=== PATIENT | female | born 1965 | race Caucasian/White ===

== ENCOUNTER → 2016-12-18 | Outpatient (CLI) | payer MEDICAID | LOC: OD 12:07 | PROVIDERS: ATTEND Family Medicine | DX: M54.2 Cervicalgia (principal) | CPT/HCPCS: 72050 ==

== ENCOUNTER 2017-06-03 08:54 | Day surgery (SDC) | payer MEDICAID ==
[2017-05-27 10:29] LABS: HEMATOCRIT 45.5 % (36.0-47.0); HEMOGLOBIN 15.2 g/dL (12.0-15.5); HGB HCT DIFFERENCE 0.1; MEAN CORPUSCULAR HEMOGLOBIN 30.3 pg (27.0-33.4); MEAN CORPUSCULAR HGB CONC 33.3 g/dL (32.0-36.0); MEAN CORPUSCULAR VOLUME 91 fl (80-97); RED CELL DISTRIBUTION WIDTH 13.6 % (11.5-14.0); WHITE BLOOD COUNT 5.5 10^3/uL (4.0-10.5)
[~2017-06-03 08:54] MED LIST: ACETAMINOPHEN 325 MG TABLET PO PRN; LACTATED RINGERS 1000 ML IV PRN; LIDOCAINE 0.5% INJ-PF (5 MG/ML) 50 ML SDV SUBCUT PRN
[2017-06-03] MEDS ORDERED: PROPOFOL INJ 200 MG/20 ML VIAL IV ONE (09:41)
[2017-06-03] MEDS ORDERED: PROMETHAZINE HCL INJ 25 MG/1 ML VIAL IV PRN (11:54)
[2017-06-03] MEDS ORDERED: DIPHENHYDRAMINE HCL 50 MG/ML VIAL IV PRN (11:54)
[2017-06-03] MEDS ORDERED: MORPHINE SULFATE 10 MG/ML INJ IV PRN (11:54)
[2017-06-03] MEDS ORDERED: MEPERIDINE HCL/PF INJ 25 MG/1 ML DISP.SYRIN IV PRN (11:54)
--- NOTE | 2017-06-03 12:29 | Operative Report ---
Operative Report DATE OF SURGERY: 06/03/17 PREOPERATIVE DIAGNOSIS: Abdominal pain; history of colon polyps; history of GERD POSTOPERATIVE DIAGNOSIS: Same with. 1. Mild distal esophagitis. 2. Mild gastritis. 3. External hemorrhoids. 4. Multiple small rectal polyps OPERATION: 1. Esophagogastroduodenoscopy. 2. Gastric and esophageal biopsies. 3. Total colonoscopy to cecum with photodocumentation. 4. Rectal polypectomy 3 SURGEON: RUDI RAPHAEL ANESTHESIA: LMAC TISSUE REMOVED OR ALTERED: Biopsies COMPLICATIONS: None none ESTIMATED BLOOD LOSS: Scant INTRAOPERATIVE FINDINGS: See below PROCEDURE: She was taken to the preop holding area the main operating room where LMAC anesthesia was induced. Monitoring devices were attached, she was placed in a semirecumbent position oral mouthpiece inserted Surgical plan surgical timeout were conducted. 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 The oral pharynx was cannulated with the flexible upper endoscope. The scope was advanced down through the hypopharynx uneventfully. There was some scar tissue peripherally but no evidence of mass, stenosis etc. Vocal cords actually appeared symmetric and without gross pathology. The EGD scope was advanced through the esophagus, stomach into the duodenum. Duodenum was normal up to the second portion. Scope was brought into the stomach which had no evidence of polyp, tumor bleeding etc. There was mild distal gastritis and a biopsy was chosen with a cold forceps device for RIGO testing Scope was retroflexed in the stomach, did look at the GE junction obtained. Minimal hiatal hernia. Scope was straightened out and brought to the GE junction which was at 36 cm from the incisor. Mild irregularity of the Z line. One biopsy of the Z line taken with the cold forceps device. There was no evidence of tumor stricture bleeding polyp or varix. Scope was withdrawn of the patient's oropharynx. She tolerated this portion procedure well Instrumentation set up for colonoscopy. Rectal exam was performed. There were some external hemorrhoids, small and collapsed. Rectal exam revealed no palpable pathology. The scope was advanced through the anorectal canal all the way to the cecum. This is an excellent study on a well-prepped bowel. Transillumination anterior abdominal wall confirmed cecal intubation. Scope was brought the length of the of the entire colon check in the mucosa carefully. There was no evidence of tumor stricture bleeding. There are no diverticulosis. In the rectum, approximately 10 cm from the verge or 3 small hyperplastic polyps which were removed with a cold forceps device, and sent to pathology as rectal polyps. Bleeding was minimal Scope was withdrawn to patient's anus. She tolerated procedure well. She was taken to recovery in stable condition Surveillance guidelines, patient will undergo colonoscopy in 3 years.
--- NOTE | 2017-06-03 12:31 | PDOC DISCHARGE SUMMARY ---
Discharge Summary (SDC) - Discharge Final Diagnosis: 1. Rectal polyps 2. External hemorrhoids Date of Surgery: 06/03/17 Discharge Date: 06/03/17 Condition: Good Treatment or Instructions: [place] [id number] POST ENDOSCOPY DISCHARGE INSTRUCTIONS 1. Diet: Start clear liquids that a regular diet as tolerated. 2. Resume all preoperative medications. All oral anticoagulants and aspirins can be resumed 24 hours after procedure. 3. If a polypectomy was performed some bleeding per rectum may occur. This should stop within 3 days. If not, please contact the office. 4. If you had a colonoscopy you may experience some bloating and delayed return of normal bowel function for several days, your regular bowel movement pattern should resume within a week. 5. Please contact [facility] at to make an appointment with Dr. Melgoza for 1 to 3 weeks following procedure. 6. If you have any questions or concerns regarding your care,treatment plan or follow up, please contact our office. 7. Per clinical guidelines we recommend you undergo a repeat colonoscopy in 3 years. Referrals: TAWNYA VARGAS MD [Primary Care Provider] - Discharge Diet: As Tolerated Discharge Activity: Activity As Tolerated Home Care Assistance: None Needed Report the Following to Your Physician Immediately: Shortness of Breath, Increase in Pain, Fever over 101 Degrees - Resume preop meds; follow-up Dr. Melgoza in approximately 2 weeks.
[2017-06-03 15:19] VITALS: BP 131/99
== END 2017-06-03 13:15 | disposition home or self-care (01) ==
LOC: OROUT 08:54
PROVIDERS: ATTEND Surgery
PROC: 0DB58ZX Excision of Esophagus, Via Natural or Artificial Opening Endoscopic, Diagnostic (ICD-10-PCS; 2017-06-03)
PROC: 0DBP8ZX Excision of Rectum, Via Natural or Artificial Opening Endoscopic, Diagnostic (ICD-10-PCS; principal; 2017-06-03 11:00)
PROC: 0DB68ZX Excision of Stomach, Via Natural or Artificial Opening Endoscopic, Diagnostic (ICD-10-PCS; 2017-06-03 11:00)
DX: K64.4 Residual hemorrhoidal skin tags (principal); K63.5 Polyp of colon; K31.9 Disease of stomach and duodenum, unspecified; K21.0 Gastro-esophageal reflux disease with esophagitis; Z93.1 Gastrostomy status; E09.9 Drug or chemical induced diabetes mellitus without complications; F17.210 Nicotine dependence, cigarettes, uncomplicated; F11.20 Opioid dependence, uncomplicated; Z85.850 Personal history of malignant neoplasm of thyroid; Z87.11 Personal history of peptic ulcer disease; Z79.899 Other long term (current) drug therapy; Z79.51 Long term (current) use of inhaled steroids
CPT/HCPCS: 43239; 45380; 36415; 85027; 88305 ×2; J2704; 810

== ENCOUNTER 2017-06-09 14:58 | Emergency (ER) | payer MEDICAID ==
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
[2017-06-09] MEDS ORDERED: OXYCODONE-ACETAMINOPHEN 5-325 MG TABLET PO ONE (16:10)
--- NOTE | 2017-06-09 16:35 | RADIOLOGY REPORT (SQ) ---
EXAM DESCRIPTION: RIBS RIGHT W/PA CHEST COMPLETED DATE/TIME: 06/09/2017 4:22 pm REASON FOR STUDY: Trauma with pain COMPARISON: 08/25/2016. TECHNIQUE: Frontal view of the chest and additional views of the right ribs acquired. NUMBER OF VIEWS: Three view. LIMITATIONS: None. FINDINGS: FRONTAL CXR: No pneumothorax. No pleural effusion. No atelectasis or infiltrates. RIBS: No displaced rib fractures. No lytic or blastic bony lesions. OTHER: No other significant finding. IMPRESSION: NO PNEUMOTHORAX. NO DISPLACED RIB FRACTURES. COMMENT: SITE OF TRAUMA/COMPLAINT MARKED/STAMP COMPLETED: YES. TECHNICAL DOCUMENTATION: JOB ID: [id number] [employer]- All Rights Reserved
--- NOTE | 2017-06-09 16:36 | RADIOLOGY REPORT (SQ) ---
EXAM DESCRIPTION: FOREARM RIGHT COMPLETED DATE/TIME: 06/09/2017 4:22 pm REASON FOR STUDY: Trauma with pain COMPARISON: None. NUMBER OF VIEWS: Two views. TECHNIQUE: Two radiographic images acquired of the right forearm, including elbow and wrist in at le ast one projection. LIMITATIONS: None. FINDINGS: MINERALIZATION: Normal. BONES: No acute fracture. Old healed fracture of the distal radius. Old ununited fracture of the ul cheryl styloid. No worrisome bone lesions. SOFT TISSUES: No obvious swelling or foreign body. OTHER: No other significant finding. IMPRESSION: OLD HEALED FRACTURE OF THE DISTAL RADIUS AND OLD UNUNITED FRACTURE OF THE ULNAR STYLOID. NO RADIOGRAPHIC EVIDENCE OF ACUTE INJURY. TECHNICAL DOCUMENTATION: JOB ID: [id number] [employer]- All Rights Reserved
[2017-06-09 17:47] VITALS: BP 125/83
== END 2017-06-09 16:55 | disposition home or self-care (01) ==
LOC: ER 14:58
DX: S60.211A Contusion of right wrist, initial encounter (principal); S20.221A Contusion of right back wall of thorax, initial encounter; W10.9XXA Fall (on) (from) unspecified stairs and steps, initial encounter; F17.200 Nicotine dependence, unspecified, uncomplicated; E11.9 Type 2 diabetes mellitus without complications; J44.9 Chronic obstructive pulmonary disease, unspecified
CPT/HCPCS: 99283; 73090; 71101; L3908

== ENCOUNTER 2017-10-27 17:55 | Emergency (ER) | payer MEDICAID ==
[2017-10-27 18:05] VITALS: BP 115/82
--- NOTE | 2017-10-27 18:30 | ER Document Report ---
ED Medical Screen (RME) - General Chief Complaint: Other Stated Complaint: HURTS TO BREATHE Time Seen by Provider: 10/27/17 18:29 Mode of Arrival: Wheelchair Information source: Patient TRAVEL OUTSIDE OF THE [place] IN LAST 30 DAYS: No - HPI Patient complains to provider of: dyspnea Onset: Yesterday - pt with h/o lung ca and pleuritis with c/o pleuritic CP and SOB - Related Data Allergies/Adverse Reactions: No Known Allergies Allergy (Verified 10/27/17 17:57) Past Medical History - Social History Chew tobacco use (# tins/day): No Frequency of alcohol use: None Drug Abuse: None - Past Medical History Cardiac Medical History: Denies: Hx Coronary Artery Disease, Hx Heart Attack, Hx Hypertension Pulmonary Medical History: Reports: Hx Asthma - MODERATE, Hx Bronchitis, Hx COPD , Hx Pneumonia Neurological Medical History: Denies: Hx Cerebrovascular Accident, Hx Seizures Endocrine Medical History: Reports: Hx Diabetes Mellitus Type 2 Renal/ Medical History: Denies: Hx Peritoneal Dialysis Malignancy Medical History: Reports: Hx Lymphoma GI Medical History: Reports: Hx Ulcer - STOMACH ,YEARS AGO. Denies: Hx Hepatitis, Hx Hiatal Hernia Musculoskeltal Medical History: Denies Hx Arthritis Infectious Medical History: Denies: Hx Hepatitis Past Surgical History: Reports: Hx Abdominal Surgery - Peg tube, Hx Tonsillectomy, Hx Vascular Surgery - Right neck lymph nodes. Denies: Hx Hysterectomy, Hx Mastectomy, Hx Open Heart Surgery, Hx Pacemaker - Immunizations Immunizations up to date: Yes Hx Diphtheria, Pertussis, Tetanus Vaccination: Yes Physical Exam - Vital signs Vitals: Temp Pulse Resp BP Pulse Ox 98.8 F 108 H 18 115/82 99 10/27/17 18:04 10/27/17 18:04 10/27/17 18:04 10/27/17 18:04 10/27/17 18:04 Course - Vital Signs Vital signs: Temp Pulse Resp BP Pulse Ox 98.8 F 108 H 18 115/82 99 10/27/17 18:04 10/27/17 18:04 10/27/17 18:04 10/27/17 18:04 10/27/17 18:04
--- NOTE | 2017-10-27 19:06 | RADIOLOGY REPORT (SQ) ---
EXAM DESCRIPTION: CHEST PA/LAT COMPLETED DATE/TIME: 10/27/2017 6:57 pm REASON FOR STUDY: sob COMPARISON: 09/01/2016 EXAM PARAMETERS: NUMBER OF VIEWS: two views TECHNIQUE: Digital Frontal and Lateral radiographic views of the chest acquired. RADIATION DOSE: NA LIMITATIONS: none FINDINGS: LUNGS AND PLEURA: Peripheral posterior opacity in the right lung lateral basal segment. M inimal perihilar opacity. Left lung is clear. MEDIASTINUM AND HILAR STRUCTURES: No masses or contour abnormalities. HEART AND VASCULAR STRUCTURES: Heart normal size. No evidence for failure. BONES: No acute findings. HARDWARE: None in the chest. OTHER: No other significant finding. IMPRESSION: Right lower lobe pneumonia. TECHNICAL DOCUMENTATION: JOB ID: [id number] [employer]- All Rights Reserved
[2017-10-27 19:39] LABS: HEMATOCRIT 43.6 % (36.0-47.0); HEMOGLOBIN 14.9 g/dL (12.0-15.5); MEAN CORPUSCULAR HEMOGLOBIN 30.5 pg (27.0-33.4); MEAN CORPUSCULAR HGB CONC 34.2 g/dL (32.0-36.0); MEAN CORPUSCULAR VOLUME 89 fl (80-97); PLATELET COUNT 252 10^3/uL (150-450); RED BLOOD COUNT 4.88 10^6/uL (3.72-5.28); RED CELL DISTRIBUTION WIDTH 13.5 % (11.5-14.0)
[2017-10-27 19:45] LABS: ALANINE AMINOTRANSFERASE 23 U/L (9-52); ALBUMIN 4.9 g/dL (3.5-5.0); ALKALINE PHOSPHATASE 102 U/L (38-126); ANION GAP 10 (5-19); ASPARTATE AMINO TRANSFERASE 20 U/L (14-36); BILIRUBIN,DIRECT 0.4 mg/dL (0.0-0.4); BILIRUBIN,TOTAL 1.5 mg/dL (0.2-1.3); BLOOD UREA NITROGEN 20 mg/dL (7-20); CALCIUM 9.9 mg/dL (8.4-10.2); CARBON DIOXIDE 27 mmol/L (22-30); CHLORIDE 102 mmol/L (98-107); CREATINE KINASE 71 U/L (30-135); GLUCOSE 104 mg/dL (75-110); POTASSIUM 4.5 mmol/L (3.6-5.0); SODIUM 139.4 mmol/L (137-145); TOTAL PROTEIN 7.4 g/dL (6.3-8.2)
[2017-10-27 19:57] LABS: CREATINE KINASE MB 0.47 ng/mL (<4.55)
[2017-10-27 20:01] LABS: ABSOLUTE LYMPHOCYTES# (MANUAL) 0.5 10^3/uL (0.5-4.7); ABSOLUTE MONOCYTES # (MANUAL) 0.4 10^3/uL (0.1-1.4); ABSOLUTE NEUTROPHILS# (MANUAL) 17.1 10^3/uL (1.7-8.2); BASOPHILS % (MANUAL) 0 % (0-2); EOSINOPHILS % (MANUAL) 0 % (0-6); LYMPHOCYTES % (MANUAL) 3 % (13-45); MONOCYTES % (MANUAL) 2 % (3-13); SEGMENTED NEUTROPHILS % (MAN) 82 % (42-78); TOTAL CELLS COUNTED 100
[2017-10-27 20:02] LABS: BAND NEUTROPHILS % (MANUAL) 13 % (3-5); PLATELET COMMENT ADEQUATE; PLATELET GIANT PRESENT; TOXIC VACUOLATION PRESENT
[2017-10-27 20:04] LABS: TROPONIN I < 0.012 ng/mL
--- NOTE | 2017-10-27 22:40 | EKG REPORT ---
SEVERITY:- OTHERWISE NORMAL ECG - SINUS TACHYCARDIA : Confirmed by: Uriel Canales 27-Oct-2017 22:39:07
[2017-10-28 12:44] LABS: PATH REVIEW PATHOLOGIST REVIEWED
== END 2017-10-27 20:41 | disposition left against medical advice (07) ==
LOC: ER 17:55
DX: R07.81 Pleurodynia (principal); R06.02 Shortness of breath; J44.9 Chronic obstructive pulmonary disease, unspecified; E11.9 Type 2 diabetes mellitus without complications; Z85.72 Personal history of non-Hodgkin lymphomas; Z85.118 Personal history of other malignant neoplasm of bronchus and lung; Z87.01 Personal history of pneumonia (recurrent); Z53.20 Procedure and treatment not carried out because of patient's decision for unspecified reasons
CPT/HCPCS: 36415; 71046; 80053; 82550; 82553; 84484; 85025; 85379; 93005; 93010; 99281

== ENCOUNTER 2017-10-29 03:39 | Emergency (ER) | payer MEDICAID ==
[2017-10-29 08:54] LABS: APPEARANCE,URINE CLOUDY; BILIRUBIN,URINE NEGATIVE (NEGATIVE); COLOR,URINE YELLOW; GLUCOSE, URINE NEGATIVE (NEGATIVE); KETONES,URINE NEGATIVE (NEGATIVE); LEUKOCYTE ESTERASE,URINE LARGE (NEGATIVE); NITRITE,URINE NEGATIVE (NEGATIVE); PROTEIN,URINE NEGATIVE (NEGATIVE); URINE SPECIFIC GRAVITY 1.027; UROBILINOGEN,URINE NEGATIVE mg/dL (<2.0)
[2017-10-29] MEDS ORDERED: AZITHROMYCIN INJ 500 MG VIAL IV ONE (10:16)
[2017-10-29] MEDS ORDERED: CEFTRIAXONE 1 GM/D5W RTU 1 GM/50 ML RTUPB IV ONE (10:16)
--- NOTE | 2017-10-29 11:27 | RADIOLOGY REPORT (SQ) ---
EXAM DESCRIPTION: CTA CHEST COMPLETED DATE/TIME: 10/29/2017 11:05 am REASON FOR STUDY: sob elevated dimer recent pna COMPARISON: CT angio chest 09/28/2014 CT chest 03/20/2011 Two-view chest 10/27/2017 TECHNIQUE: CT scan of the chest performed using helical scanning technique with dynamic intravenous contrast injection. Images reviewed with lung, soft tissue and bone windows. Reconstructed coronal and sagittal MPR images reviewed. Additional 3 dimensional post-processing performed to develop Maximal Intensity Projection images (DC P). All images stored on PACS. All CT scanners at this facility use dose modulation, iterative reconstruction, and/or weight based d osing when appropriate to reduce radiation dose to as low as reasonably achievable (ALARA). [facility]: Dose Right [facility]: CareDose [facility]: Dose Right [facility]: Teradose 4D [facility]: Eventap CONTRAST TYPE AND DOSE: contrast/concentration: Isovue 300.00 mg/ml; Total Contrast Delivered: 61.0 ml; Total Saline Delivered: 85.0 ml Contrast bolus optimized for the pulmonary arteries. Not diagnostic for the aorta. RENAL FUNCTION: Creatinine 0.8 RADIATION DOSE: CT Rad equipment meets quality standard of care and radiation dose reduction techniq ues were employed. CTDIvol: 13.2 - 14.3 mGy. DLP: 558 mGy-cm. . LIMITATIONS: None. FINDINGS: LUNGS AND PLEURA: Progression of airspace disease worrisome for pneumonia since 10/27/2017. There is an increase in extent of right lower lobe pneumonia, with dense consolidation posteriorly a nd laterally, and new spotty consolidation in the medial right lower lobe and superior segment right lower lobe. New foci of consolidation are also seen in the right upper lobe, and superior segment left lower lobe . No pleural effusion. No pneumothorax. AORTA AND GREAT VESSELS: No aneurysm. Contrast bolus not optimized for the aorta. HEART: No pericardial effusion. No significant coronary artery calcifications. PULMONARY ARTERIES: No emboli visualized in the main pulmonary arteries or the segmental branches. HILAR AND MEDIASTINAL STRUCTURES: No identified masses or abnormal nodes. HARDWARE: None in the chest. UPPER ABDOMEN: 1.8 cm cyst right lower pole kidney THYROID AND OTHER SOFT TISSUES: Right lobe thyroidectomy BONES: No acute or significant finding. 3D MIPS: Confirm above findings. OTHER: No other significant finding. IMPRESSION: NO PULMONARY EMBOLI. INCREASING RIGHT LOWER LOBE PNEUMONIA. NEW FOCI OF PNEUMONIA IN THE RIGHT UPPER LOBE AND LEFT LOWER LOBE COMMENT: Quality ID # [id number]: Final reports with documentation of one or more dose reduction techniques (e.g., Automated exposure control, adjustment of the mA and/or kV according to patient size, use of iterative reconstruction technique) TECHNICAL DOCUMENTATION: JOB ID: [id number] [employer]- All Rights Reserved
[2017-10-29] MEDS ORDERED: NORMAL SALINE 1000 ML 1,000 ML IV ONE (11:51)
[2017-10-29] MEDS ORDERED: CEFTRIAXONE SODIUM 1,000 MG in NORMAL SALINE 50 ML IV ONE (12:00)
[2017-10-29 12:32] LABS: ABSOLUTE LYMPHOCYTES (AUTO) 1.2 10^3/uL (0.5-4.7); ABSOLUTE MONOCYTES (AUTO) 0.6 10^3/uL (0.1-1.4); ABSOLUTE NEUT (AUTO) 15.5 10^3/uL (1.7-8.2); BASOPHILS % (AUTO) 0.3 % (0-2); EOSINOPHILS % (AUTO) 0.2 % (0-6); HEMATOCRIT 36.6 % (36.0-47.0); LYMPHOCYTES % (AUTO) 6.7 % (13-45); MEAN CORPUSCULAR HEMOGLOBIN 29.4 pg (27.0-33.4); MEAN CORPUSCULAR HGB CONC 32.9 g/dL (32.0-36.0); MEAN CORPUSCULAR VOLUME 89 fl (80-97); MONOCYTES % (AUTO) 3.5 % (3-13); PLATELET COUNT 229 10^3/uL (150-450); RED BLOOD COUNT 4.11 10^6/uL (3.72-5.28); RED CELL DISTRIBUTION WIDTH 13.9 % (11.5-14.0); SEGMENTED NEUTROPHILS % (AUTO) 89.3 % (42-78); TOTAL CELLS COUNTED % (AUTO) 100 %; WHITE BLOOD COUNT 17.3 10^3/uL (4.0-10.5)
[2017-10-29 12:33] LABS: HEMOGLOBIN 12.1 g/dL (12.0-15.5)
[2017-10-29 12:53] LABS: ALANINE AMINOTRANSFERASE 23 U/L (9-52); ALBUMIN 3.5 g/dL (3.5-5.0); ALKALINE PHOSPHATASE 110 U/L (38-126); ANION GAP 8 (5-19); ASPARTATE AMINO TRANSFERASE 18 U/L (14-36); BILIRUBIN,DIRECT 0.4 mg/dL (0.0-0.4); BILIRUBIN,TOTAL 0.4 mg/dL (0.2-1.3); BLOOD UREA NITROGEN 18 mg/dL (7-20); CALCIUM 9.5 mg/dL (8.4-10.2); CARBON DIOXIDE 24 mmol/L (22-30); CHLORIDE 108 mmol/L (98-107); GLUCOSE 71 mg/dL (75-110); LIPASE 18.3 U/L (23-300); POTASSIUM 3.6 mmol/L (3.6-5.0); SODIUM 140.3 mmol/L (137-145); TOTAL PROTEIN 5.9 g/dL (6.3-8.2)
--- NOTE | 2017-10-29 13:18 | ER Document Report ---
ED General - General Chief Complaint: Flank Pain Stated Complaint: FLANK PAIN Time Seen by Provider: 10/29/17 08:50 TRAVEL OUTSIDE OF THE [place] IN LAST 30 DAYS: No - HPI Patient complains to provider of: UTI pneumonia Notes: Patient coming in today for evaluation UTI pneumonia. Patient was seen in the ER approximately 48 hours ago had laboratory studies performed along with a d- dimer that was elevated chest x-ray showed pneumonia however left the ER prior to being seen by a physician. Patient states she left when the [facility] and was told shot of Rocephin and Zithromax however the left AGAINST MEDICAL ADVICE at that time. Patient with your PCP was urged to come to the ER for admission and reevaluation. Upon my evaluation patient resting comfortably and is very upset is that she has waited again here in the ER to be seen. Patient states chills cough shortness of breath patient states that this would like she has a urinary tract infection and was told by PCP at the urinary tract infection because her pneumonia. Patient states did not receive any antibiotics from the [facility]. Patient states he did receive fluids. Patient otherwise has no other complaints. - Related Data Allergies/Adverse Reactions: No Known Allergies Allergy (Verified 10/27/17 17:57) Past Medical History - Social History Smoking Status: Current Every Day Smoker Chew tobacco use (# tins/day): No Frequency of alcohol use: None Drug Abuse: None Family History: Reviewed & Not Pertinent Patient has suicidal ideation: No Patient has homicidal ideation: No - Past Medical History Cardiac Medical History: Denies: Hx Coronary Artery Disease, Hx Heart Attack, Hx Hypertension Pulmonary Medical History: Reports: Hx Asthma - MODERATE, Hx Bronchitis, Hx COPD , Hx Pneumonia Neurological Medical History: Denies: Hx Cerebrovascular Accident, Hx Seizures Endocrine Medical History: Reports: Hx Diabetes Mellitus Type 2 Renal/ Medical History: Denies: Hx Peritoneal Dialysis Malignancy Medical History: Reports: Hx Lymphoma GI Medical History: Reports: Hx Ulcer - STOMACH ,YEARS AGO. Denies: Hx Hepatitis, Hx Hiatal Hernia Musculoskeltal Medical History: Denies Hx Arthritis Infectious Medical History: Denies: Hx Hepatitis Past Surgical History: Reports: Hx Abdominal Surgery - Peg tube, Hx Tonsillectomy, Hx Vascular Surgery - Right neck lymph nodes. Denies: Hx Hysterectomy, Hx Mastectomy, Hx Open Heart Surgery, Hx Pacemaker - Immunizations Immunizations up to date: Yes Hx Diphtheria, Pertussis, Tetanus Vaccination: Yes Hx Pneumococcal Vaccination: 09/21/10 Review of Systems - Review of Systems Constitutional: No symptoms reported EENT: No symptoms reported Cardiovascular: No symptoms reported Respiratory: Cough Gastrointestinal: No symptoms reported Genitourinary: Other - UTI Female Genitourinary: No symptoms reported Musculoskeletal: No symptoms reported Skin: No symptoms reported Hematologic/Lymphatic: No symptoms reported Neurological/Psychological: No symptoms reported -: Yes All other systems reviewed and negative Physical Exam - Vital signs Vitals: Resp 18 10/29/17 09:38 Interpretation: Normal - General General appearance: Appears well, Alert - HEENT Head: Normocephalic, Atraumatic Eyes: Normal Pupils: PERRL - Respiratory Respiratory status: No respiratory distress Chest status: Nontender Breath sounds: Rhonchi Chest palpation: Normal - Cardiovascular Rhythm: Regular Heart sounds: Normal auscultation Murmur: No - Abdominal Inspection: Normal Distension: No distension Bowel sounds: Normal Tenderness: Nontender Organomegaly: No organomegaly - Back Back: Normal, Nontender - Extremities General upper extremity: Normal inspection, Nontender, Normal color, Normal ROM , Normal temperature General lower extremity: Normal inspection, Nontender, Normal color, Normal ROM , Normal temperature, Normal weight bearing. No: Gloria's sign - Neurological Neuro grossly intact: Yes Cognition: Normal Orientation: AAOx4 Markell Coma Scale Eye Opening: Spontaneous [place] Coma Scale Verbal: Oriented Markell Coma Scale Motor: Obeys Commands [place] Coma Scale Total: 15 Speech: Normal Motor strength normal: LUE, RUE, LLE, RLE Sensory: Normal - Psychological Associated symptoms: Normal affect, Normal mood - Skin Skin Temperature: Warm Skin Moisture: Dry Skin Color: Normal Course - Re-evaluation Re-evalutation: 10/29/17 15:34 Improving leukocytosis no bandemia. Patient laboratory studies show signs of UTI as well. Patient was ordered Rocephin and Zithromax. Upon reevaluation patient stating that she needs to leave the ER right now is that she has to go to court. Patient states that she will sign out AMA if she needs to. Otherwise vital signs are stable no signs of hypoxia patient is able to make her own medical decisions the patient will be a good candidate for outpatient treatment of her pneumonia and UTI with Levaquin. Patient did not receive her Rocephin left prior to receiving this however did give the patient a prescription for Levaquin. - Vital Signs Vital signs: Temp Pulse Resp BP Pulse Ox 18 10/29/17 09:38 - Laboratory Result Diagrams: 10/29/17 11:50 10/29/17 11:50 Laboratory results interpreted by me: 10/29/17 10/29/17 10/29/17 07:50 11:50 11:50 WBC 17.3 H Seg Neutrophils % 89.3 H Lymphocytes % 6.7 L Absolute Neutrophils 15.5 H Chloride 108 H Glucose 71 L Total Protein 5.9 L Lipase 18.3 L Urine Blood MODERATE H Ur Leukocyte Esterase LARGE H Discharge - Discharge Clinical Impression: UTI (urinary tract infection) Qualifiers: Urinary tract infection type: site unspecified Hematuria presence: without hematuria Qualified Code(s): N39.0 - Urinary tract infection, site not specified Pneumonia Qualifiers: Pneumonia type: due to unspecified organism Laterality: bilateral Lung location : unspecified part of lung Qualified Code(s): J18.9 - Pneumonia, unspecified organism Condition: Good Disposition: HOME, SELF-CARE Instructions: Pneumonia ([facility]), Urinary Tract Infection ([facility]) Additional Instructions: Please take medication as prescribed. Return to the ER for any complications. Prescriptions: Levofloxacin [Levaquin] 500 mg PO DAILY 9 Days tablet Forms: Smoking Cessation Education Referrals: TAWNYA VARGAS MD [Primary Care Provider] - Follow up as needed
== END 2017-10-29 13:33 | disposition home or self-care (01) ==
LOC: ER 03:39
DX: R10.9 Unspecified abdominal pain (principal); J18.9 Pneumonia, unspecified organism; N39.0 Urinary tract infection, site not specified; R68.83 Chills (without fever); R05 Cough; R06.02 Shortness of breath; E11.9 Type 2 diabetes mellitus without complications; F17.200 Nicotine dependence, unspecified, uncomplicated; J44.9 Chronic obstructive pulmonary disease, unspecified
CPT/HCPCS: 99284; 96365; 36415; 87040; 83690; 85025; 80053; 81001; 71275; J0456

== ENCOUNTER 2017-11-06 14:13 | Emergency (ER) | payer MEDICAID ==
--- NOTE | 2017-11-06 16:19 | RADIOLOGY REPORT (SQ) ---
EXAM DESCRIPTION: CHEST PA/LAT COMPLETED DATE/TIME: 11/06/2017 4:07 pm REASON FOR STUDY: hemoptysis COMPARISON: 10/27/2017 EXAM PARAMETERS: NUMBER OF VIEWS: two views TECHNIQUE: Digital Frontal and Lateral radiographic views of the chest acquired. RADIATION DOSE: NA LIMITATIONS: none FINDINGS: LUNGS AND PLEURA: There is persistent segmental airspace disease in the lateral right lowe r lobe. No evidence of cavitation. No significant pleural fluid. Left lung is clear. MEDIASTINUM AND HILAR STRUCTURES: No masses or contour abnormalities. HEART AND VASCULAR STRUCTURES: Heart normal size. No evidence for failure. BONES: No acute findings. HARDWARE: None in the chest. OTHER: No other significant finding. IMPRESSION: Persistent airspace disease in the right lower lobe consistent with pneumonia or other p ostobstructive process. No significant change. TECHNICAL DOCUMENTATION: JOB ID: [id number] [employer]- All Rights Reserved
--- NOTE | 2017-11-06 16:42 | ER Document Report ---
ED Respiratory Problem - General Chief Complaint: Productive Cough Stated Complaint: COUGHING UP BLOOD Time Seen by Provider: 11/06/17 15:43 Mode of Arrival: Ambulatory Information source: Patient Notes: Patient is a 52-year-old female with COPD who presents to the ER today for cough , right middle back pain times approximately 1 month. Patient was here a few weeks ago she says and diagnosed with pneumonia and a urinary tract infection, has finished Levaquin for 10 days and was also given another antibiotic that she does not remember by IV one time in the emergency department at another hospital. Patient states that she really has not gotten any better except the burning with urination is now gone. She admits to hot flashes and chills but denies any fever that she is known of. She states that 2 days ago she started coughing up a little streaks of blood which scared her enough to come in today. She denies being on any blood thinners. TRAVEL OUTSIDE OF THE [place] IN LAST 30 DAYS: No - Related Data Allergies/Adverse Reactions: No Known Allergies Allergy (Verified 11/06/17 14:14) Past Medical History - General Information source: Patient - Social History Smoking Status: Current Every Day Smoker Chew tobacco use (# tins/day): No Frequency of alcohol use: None Drug Abuse: None Family History: Reviewed & Not Pertinent Patient has suicidal ideation: No Patient has homicidal ideation: No - Past Medical History Cardiac Medical History: Denies: Hx Coronary Artery Disease, Hx Heart Attack, Hx Hypertension Pulmonary Medical History: Reports: Hx Asthma - MODERATE, Hx Bronchitis, Hx COPD , Hx Pneumonia Neurological Medical History: Denies: Hx Cerebrovascular Accident, Hx Seizures Endocrine Medical History: Reports: Hx Diabetes Mellitus Type 2 Renal/ Medical History: Denies: Hx Peritoneal Dialysis Malignancy Medical History: Reports: Hx Lymphoma GI Medical History: Reports: Hx Ulcer - STOMACH ,YEARS AGO. Denies: Hx Hepatitis, Hx Hiatal Hernia Musculoskeltal Medical History: Denies Hx Arthritis Infectious Medical History: Denies: Hx Hepatitis Past Surgical History: Reports: Hx Abdominal Surgery - Peg tube, Hx Tonsillectomy, Hx Vascular Surgery - Right neck lymph nodes. Denies: Hx Hysterectomy, Hx Mastectomy, Hx Open Heart Surgery, Hx Pacemaker - Immunizations Immunizations up to date: Yes Hx Diphtheria, Pertussis, Tetanus Vaccination: Yes Hx Pneumococcal Vaccination: 01/01/11 Review of Systems - Review of Systems Constitutional: See HPI EENT: No symptoms reported Cardiovascular: No symptoms reported Respiratory: See HPI Gastrointestinal: No symptoms reported Genitourinary: No symptoms reported Female Genitourinary: No symptoms reported Musculoskeletal: No symptoms reported Skin: No symptoms reported Hematologic/Lymphatic: No symptoms reported Neurological/Psychological: No symptoms reported Physical Exam - Vital signs Vitals: Temp Pulse Resp BP Pulse Ox 97.9 F 87 22 H 123/86 H 99 11/06/17 14:19 11/06/17 14:19 11/06/17 14:19 11/06/17 14:19 11/06/17 14:19 - Notes Notes: PHYSICAL EXAMINATION: GENERAL: Mildly ill-appearing, but in no acute distress. HEAD: Atraumatic, normocephalic. EYES: Pupils equal round and reactive to light, extraocular movements intact, sclera anicteric, conjunctiva are normal. ENT: ear canals without erythema or foreign body, TMs pearly engle with good bony landmarks, nares patent, oropharynx clear without exudates. Moist mucous membranes. Airway patent NECK: Normal range of motion, supple without lymphadenopathy LUNGS: Productive cough, otherwise CTAB and equal. No wheezes rales or rhonchi. HEART: Regular rate and rhythm without murmurs ABDOMEN: Soft, no tenderness. No guarding, no rebound BACK: no vertebral tenderness, normal ROM GI/: no CVA tenderness EXTREMITIES: Normal range of motion, no pitting edema. No cyanosis. NEUROLOGICAL: Cranial nerves grossly intact. Normal sensory/motor exams. PSYCH: Normal mood, normal affect. SKIN: Warm, Dry, normal turgor, no rashes or lesions noted Course - Re-evaluation Re-evalutation: 11/06/17 17:20 Chest x-ray today reports a persistent right lower lobe pneumonia. Patient refuses to stay in the hospital and also refuses any more blood draws or an IV. I will start her on Augmentin and provide her with a cough medication. I have advised that she follow-up with her primary care provider. She refuses to wait on urinalysis to return. - Vital Signs Vital signs: Temp Pulse Resp BP Pulse Ox 97.9 F 87 22 H 123/86 H 99 11/06/17 14:19 11/06/17 14:19 11/06/17 14:19 11/06/17 14:19 11/06/17 14:19 Discharge - Discharge Clinical Impression: Pneumonia Qualifiers: Pneumonia type: due to unspecified organism Laterality: right Lung location: lower lobe of lung Qualified Code(s): J18.1 - Lobar pneumonia, unspecified organism Condition: Stable Disposition: HOME, SELF-CARE Additional Instructions: Return immediately for any new or worsening symptoms. Follow up with primary care provider, call tomorrow to make followup appointment. Prescriptions: Hydrocodone Bit/Homatropine [Hycodan Syrup 5-1.5 mg/5 ml Ud Cup] 5 ml PO Q4HP PRN #120 ml PRN Reason: Amox Tr/Potassium Clavulanate [Augmentin 875-125 Tablet] 1 tab PO BID 10 Days tablet
[2017-11-06] MEDS ORDERED: HYDROCODONE/ACETAMINOPHEN 5-325 MG TABLET PO ONE (17:24)
[2017-11-06 17:41] VITALS: BP 149/93
[2017-11-06 18:19] LABS: APPEARANCE,URINE SLIGHTLY-CLOUDY; BILIRUBIN,URINE NEGATIVE (NEGATIVE); CALCIUM OXALATE CRYSTALS,URINE MODERATE /HPF; COLOR,URINE YELLOW; GLUCOSE, URINE NEGATIVE (NEGATIVE); KETONES,URINE NEGATIVE (NEGATIVE); LEUKOCYTE ESTERASE,URINE SMALL (NEGATIVE); NITRITE,URINE NEGATIVE (NEGATIVE); PROTEIN,URINE NEGATIVE (NEGATIVE); URINE SPECIFIC GRAVITY 1.025; UROBILINOGEN,URINE NEGATIVE mg/dL (<2.0)
== END 2017-11-06 17:50 | disposition home or self-care (01) ==
LOC: ER 14:13
DX: J18.1 Lobar pneumonia, unspecified organism (principal); R04.2 Hemoptysis; J44.9 Chronic obstructive pulmonary disease, unspecified; Z79.899 Other long term (current) drug therapy; F17.200 Nicotine dependence, unspecified, uncomplicated
CPT/HCPCS: 71046; 81001; 99284

== ENCOUNTER 2018-01-15 15:51 | Emergency (ER) | payer MEDICAID ==
--- NOTE | 2018-01-15 17:00 | ER Document Report ---
ED General - General Chief Complaint: Vaginal Discharge Stated Complaint: THROAT PAIN Time Seen by Provider: 01/15/18 16:27 Notes: Patient is a 52-year-old female who presents emergency room with multiple complaints. Her chief complaint today is vaginal discharge that she has had for 6 months. Patient states that she is followed with Dr. Vargas as well as multiple trips to the ER which she usually leaves AMA per review of the chart. Patient states she has not had a pelvic regarding this discharge. Patient states that she is sexually active and not using protection. She admits to pain with intercourse. She denies any bleeding. She admits to more vaginal pain then pyuria. Patient also admits that she is here for Adderall prescription. Patient states that she has been trying to get her Adderall E prescription filled from her primary provider but states that they have not been able to send it due to clerical issues. Patient states that she was told to come to the ER to have her prescription filled for the weekend. Patient also admits to left lateral neck pain. Patient states that she had had a previous anterior resection for stage IV cancer and states that this morning she had left-sided neck pain. Patient denies any difficulty with range of motion. TRAVEL OUTSIDE OF THE [place] IN LAST 30 DAYS: No - Related Data Allergies/Adverse Reactions: No Known Allergies Allergy (Verified 01/15/18 15:53) Past Medical History - Social History Smoking Status: Current Every Day Smoker Chew tobacco use (# tins/day): No Frequency of alcohol use: None Drug Abuse: None Family History: Reviewed & Not Pertinent Patient has suicidal ideation: No Patient has homicidal ideation: No - Past Medical History Cardiac Medical History: Denies: Hx Coronary Artery Disease, Hx Heart Attack, Hx Hypertension Pulmonary Medical History: Reports: Hx Asthma - MODERATE, Hx Bronchitis, Hx COPD , Hx Pneumonia Neurological Medical History: Denies: Hx Cerebrovascular Accident, Hx Seizures Endocrine Medical History: Reports: Hx Diabetes Mellitus Type 2 Renal/ Medical History: Denies: Hx Peritoneal Dialysis Malignancy Medical History: Reports: Hx Lymphoma GI Medical History: Reports: Hx Ulcer - STOMACH ,YEARS AGO. Denies: Hx Hepatitis, Hx Hiatal Hernia Musculoskeltal Medical History: Denies Hx Arthritis Infectious Medical History: Denies: Hx Hepatitis Past Surgical History: Reports: Hx Abdominal Surgery - Peg tube, Hx Hysterectomy , Hx Tonsillectomy, Hx Vascular Surgery - Right neck lymph nodes. Denies: Hx Mastectomy, Hx Open Heart Surgery, Hx Pacemaker - Immunizations Immunizations up to date: Yes Hx Diphtheria, Pertussis, Tetanus Vaccination: Yes Hx Pneumococcal Vaccination: 09/21/10 Review of Systems - Review of Systems Constitutional: No symptoms reported EENT: See HPI Cardiovascular: No symptoms reported Respiratory: No symptoms reported Gastrointestinal: No symptoms reported Genitourinary: No symptoms reported Female Genitourinary: See HPI Musculoskeletal: See HPI Neurological/Psychological: See HPI -: Yes All other systems reviewed and negative Physical Exam - Vital signs Vitals: Temp Pulse Resp BP Pulse Ox 98.0 F 73 18 124/80 97 01/15/18 15:56 01/15/18 15:56 01/15/18 15:56 01/15/18 15:56 01/15/18 15:56 - Notes Notes: PHYSICAL EXAM GENERAL: Alert, interacts well. HEAD: Normocephalic, atraumatic. EYES: Pupils equal, round, and reactive to light. Extraocular movements intact. ENT: Oral mucosa moist, tongue midline. NECK: Full range of motion. Supple. Trachea midline. Tenderness along the left sternocleidomastoid with pain reproducible palpation. No evidence of torticollis. LUNGS: Clear to auscultation bilaterally, no wheezes, rales, or rhonchi. No respiratory distress. HEART: Regular rate and rhythm. No murmurs, gallops, or rubs. ABDOMEN: Soft, nondistended, nontender. No guarding, rebound, or rigidity.. Bowel sounds present in all 4 quadrants. FEMALE : Normal external exam. No evidence of lesions, lacerations, bruising or vesicles. Speculum exam normal cervix closed. Moderate amount of yellow vaginal discharge. No evidence of lesions. No vaginal bleeding. Bimanual exam normal no cervical motion tenderness. No adnexal mass or adnexal tenderness. EXTREMITIES: Moves all 4 extremities spontaneously. No edema, radial and dorsalis pedis pulses 2/4 bilaterally. No cyanosis. NEUROLOGICAL: Alert and oriented x4. Normal speech. PSYCH: Normal affect, normal mood. SKIN: Warm, dry, normal turgor. No rashes or lesions noted. Course - Re-evaluation Re-evalutation: 01/15/18 18:07 Patient is a 52-year-old female is hemodynamically stable, no acute distress and afebrile. Regarding her vaginal discharge. She did test positive for trichomonas. Discussed with her that chlamydia and gonorrhea results will have to be phoned to her if she test positive. She agrees with that plan will except treatment for trichomonas at this time. Regarding her neck pain this is consistent with muscle strain of the SCM. Patient states that it feels better in certain positions. Also discussed with her I will give her a 3 day supply of her Adderall and is to follow-up with her primary prescriber for this. I did call over to their office and states that they have been having issues with her E prescribed that they are agreeable with a 3 day supply. Discussed with her that she will need to follow-up with them next week if they are still not able to e-prescribe her medication and that she will not be able to fill her Adderall from the emergency department anymore. Patient agrees with plan. - Vital Signs Vital signs: Temp Pulse Resp BP Pulse Ox 97.7 F 74 16 109/94 H 99 01/15/18 18:18 01/15/18 18:18 01/15/18 18:18 01/15/18 18:18 01/15/18 18:18 - Laboratory Laboratory results interpreted by me: 01/15/18 17:20 Urine Nitrite POSITIVE H Ur Leukocyte Esterase LARGE H Discharge - Discharge Clinical Impression: Trichomonas infection, Medication refill Condition: Good Disposition: HOME, SELF-CARE Instructions: Trichomonas Infection (OM) Additional Instructions: You have been given a 3 day course of your Adderall. If you run out again you will need to follow-up with your primary physician for this medication. You will not be able to receive more prescriptions from the emergency department regarding this medication. Prescriptions: Dextroamphetamine/Amphetamine [Adderall 20 mg Tablet] 20 mg PO BID #6 tablet Referrals: TAWNYA VARGAS MD [Primary Care Provider] - Follow up in 3-5 days
[2018-01-15 17:46] LABS: APPEARANCE,URINE SLIGHTLY-CLOUDY; BILIRUBIN,URINE NEGATIVE (NEGATIVE); COLOR,URINE YELLOW; GLUCOSE, URINE NEGATIVE (NEGATIVE); KETONES,URINE NEGATIVE (NEGATIVE); LEUKOCYTE ESTERASE,URINE LARGE (NEGATIVE); NITRITE,URINE POSITIVE (NEGATIVE); PROTEIN,URINE NEGATIVE (NEGATIVE); URINE SPECIFIC GRAVITY 1.026; UROBILINOGEN,URINE NEGATIVE mg/dL (<2.0)
[2018-01-15 17:52] LABS: RBCS (WET MOUNT) RARE RBCS SEEN; T.VAGINALIS (WET MOUNT) TRICHOMONAS SEEN; WBCS (WET MOUNT) 4+ WBCS SEEN; YEAST (WET MOUNT) NO YEAST SEEN
[2018-01-15] MEDS ORDERED: METRONIDAZOLE 500 MG TABLET PO ONE (18:06)
[2018-01-15 18:26] VITALS: BP 109/94
[2018-01-15 20:54] LABS: CHLAM PCR NOT DETECTED (NOT DETECT); GON PCR NOT DETECTED (NOT DETECT)
== END 2018-01-15 18:27 | disposition home or self-care (01) ==
LOC: ER 15:51
DX: A59.01 Trichomonal vulvovaginitis (principal); F17.200 Nicotine dependence, unspecified, uncomplicated; E11.9 Type 2 diabetes mellitus without complications; Z90.710 Acquired absence of both cervix and uterus
CPT/HCPCS: 99283; 87210; 81001; 87491; 87591; J3490

== ENCOUNTER 2018-04-20 03:18 | Emergency (ER) | payer MEDICAID ==
--- NOTE | 2018-04-20 04:11 | ER Document Report ---
ED Eye Complaint - General Chief Complaint: Eye Pain Stated Complaint: EYE PAIN Time Seen by Provider: 04/20/18 03:55 Notes: Patient is a 52-year-old female that comes emergency department for chief complaint of left eye pain. She states that the eyelid is swelling and she noticed that there is some blood under the white part of her eye as well. Symptoms started yesterday and did not resolve so she became concerned. She denies discharge, foreign body sensation, loss of vision, headache, or any other symptoms at this time. She does not wear contacts or glasses. She states she did put on makeup yesterday but that is the only out of the ordinary thing she can think of. She denies trauma. TRAVEL OUTSIDE OF THE [place] IN LAST 30 DAYS: No - Related Data Allergies/Adverse Reactions: No Known Allergies Allergy (Verified 01/15/18 15:53) Past Medical History - General Information source: Patient - Social History Smoking Status: Current Every Day Smoker Chew tobacco use (# tins/day): No Frequency of alcohol use: Occasional Drug Abuse: None Lives with: Alone Family History: Reviewed & Not Pertinent Patient has suicidal ideation: No Patient has homicidal ideation: No - Past Medical History Cardiac Medical History: Denies: Hx Coronary Artery Disease, Hx Heart Attack, Hx Hypertension Pulmonary Medical History: Reports: Hx Asthma - MODERATE, Hx Bronchitis, Hx COPD , Hx Pneumonia Neurological Medical History: Denies: Hx Cerebrovascular Accident, Hx Seizures Endocrine Medical History: Reports: Hx Diabetes Mellitus Type 2 Renal/ Medical History: Denies: Hx Peritoneal Dialysis Malignancy Medical History: Reports: Hx Lymphoma GI Medical History: Reports: Hx Ulcer - STOMACH ,YEARS AGO. Denies: Hx Hepatitis, Hx Hiatal Hernia Musculoskeletal Medical History: Denies Hx Arthritis Infectious Medical History: Denies: Hx Hepatitis Past Surgical History: Reports: Hx Abdominal Surgery - Peg tube, Hx Hysterectomy , Hx Tonsillectomy, Hx Vascular Surgery - Right neck lymph nodes. Denies: Hx Mastectomy, Hx Open Heart Surgery, Hx Pacemaker - Immunizations Immunizations up to date: Yes Hx Diphtheria, Pertussis, Tetanus Vaccination: Yes Hx Pneumococcal Vaccination: 09/21/10 Review of Systems - Review of Systems Constitutional: No symptoms reported EENT: See HPI Cardiovascular: No symptoms reported Respiratory: No symptoms reported Gastrointestinal: No symptoms reported Genitourinary: No symptoms reported Female Genitourinary: No symptoms reported Musculoskeletal: No symptoms reported Skin: No symptoms reported Hematologic/Lymphatic: No symptoms reported Neurological/Psychological: No symptoms reported Physical Exam - Vital signs Vitals: Temp Pulse Resp BP Pulse Ox 97.7 F 68 15 147/89 H 100 04/20/18 03:29 04/20/18 03:29 04/20/18 03:29 04/20/18 03:04/20/18 03:29 - General General appearance: Appears well In distress: None - HEENT Head: Normocephalic, Atraumatic Eyes: Periorbital edema - Very minimal. No: Scleral icterus, Tears Conjunctiva: Injected - Minimal, Other - Left lateral large subconjunctival hemorrhage Cornea: Normal - Negative Doni sign. No: Corneal abrasion, Corneal ulcer, Dendrite, Embedded foreign body, Flourescein stain uptake, Opacified, Superficial foreign body Eyelashes: Normal Pupils: PERRL Visual acuity- Right eye: 20/40 Visual acuity- Left eye: 20/70 Visual acuity- Both eyes: 20/30 Corrective lenses worn: No Left intraocular pressure: 18 Anterior chamber: Normal. No: Hyphema Nerve palsy: No Visual traore normal: Yes Ears: Normal External canal: Normal Tympanic membrane: Normal Sinus: Normal Nasal: Normal Mouth/Lips: Normal Mucous membranes: Normal Pharynx: Normal Neck: Normal - Respiratory Respiratory status: No respiratory distress Breath sounds: Normal. No: Decreased air movement, Wheezing - Cardiovascular Rhythm: Regular. No: Tachycardia Heart sounds: Normal auscultation, S1 appreciated, S2 appreciated - Abdominal Inspection: Normal Tenderness: Nontender. No: Tender, Guarding - Back Back: Normal, Nontender. No: Tender - Extremities General upper extremity: Normal inspection, Nontender, Normal strength, Normal temperature General lower extremity: Normal inspection, Nontender, Normal strength, Normal temperature. No: Edema - Neurological Neuro grossly intact: Yes Cognition: Normal Orientation: AAOx4 [place] Coma Scale Eye Opening: Spontaneous [place] Coma Scale Verbal: Oriented [place] Coma Scale Motor: Obeys Commands [place] Coma Scale Total: 15 Speech: Normal Motor strength normal: LUE, RUE, LLE, RLE Additional motor exam normals: Equal dye box operator Sensory: Normal - Psychological Associated symptoms: Normal affect, Normal mood - Skin Skin Temperature: Warm Skin Moisture: Dry Skin Color: Normal Course - Re-evaluation Re-evalutation: Normal intraocular pressure, no noted fluorescein uptake, negative Doni sign, normal pupil, minimal edema of the pupils and mild injection of the conjunctive are consistent with patient rubbing her eye. Unsure if this was traumatic. Dr. Bentley did evaluate the patient at bedside. Because of the large size of the subconjunctival hemorrhage and patient's general exam recommendation is erythromycin ointment and close ophthalmology follow-up. Discussed medication, follow-up, return precautions. Patient states understanding and agreement. - Vital Signs Vital signs: Temp Pulse Resp BP Pulse Ox 98.5 F 63 16 127/85 H 99 04/20/18 05:09 04/20/18 05:09 04/20/18 05:09 04/20/18 05:09 04/20/18 05:09 Discharge - Discharge Clinical Impression: Left eye pain Subconjunctival bleed Qualifiers: Laterality: left Qualified Code(s): H11.32 - Conjunctival hemorrhage, left eye Condition: Stable Disposition: HOME, SELF-CARE Additional Instructions: Your evaluation shows what is called a sub-conjunctival hemorrhage, this should resolve with time, however because of your symptoms and the size of the hemorrhage I recommend that you apply the topical ointment to soothe the area and reduce any chance of infection and that you have your eye closely rechecked by the safety belt installer. Please call Dr. Pathak this morning to set up your close follow-up. See referral number. Return if you worsen including loss of vision, severe pain, swelling of the eye, fever, or any other concerning symptoms. Prescriptions: Erythromycin Base [Erythromycin Oph 1 Gm Oint Ud] 1 applic OD ASDIR PRN #1 tube PRN Reason: Referrals: ALICE PATHAK MD [ACTIVE STAFF] - 04/20/18
[2018-04-20] MEDS ORDERED: TETRACAINE HCL 0.5% OPH SOLN 2 ML OS ONE (04:37)
[2018-04-20] MEDS ORDERED: TETRACAINE HCL 0.5% OPH SOLN 2 ML ONE (04:38)
[2018-04-20] MEDS ORDERED: ERYTHROMYCIN 0.5% OPH OINT 1 GM UNIT DOSE OS ONE (04:53)
[2018-04-20 05:10] VITALS: BP 127/85
== END 2018-04-20 05:10 | disposition home or self-care (01) ==
LOC: ER 03:18
DX: H11.32 Conjunctival hemorrhage, left eye (principal); H57.12 Ocular pain, left eye; E11.9 Type 2 diabetes mellitus without complications; F17.200 Nicotine dependence, unspecified, uncomplicated; Z90.710 Acquired absence of both cervix and uterus
CPT/HCPCS: 99283; J3490 ×2

== ENCOUNTER 2018-11-25 12:54 | Emergency (ER) | payer MEDICAID ==
[2018-11-25 13:00] VITALS: BP 110/72
[2018-11-25] MEDS ORDERED: RINGERS SOLUTION,LACTATED 1,000 ML IV ONE (13:40)
[2018-11-25] MEDS ORDERED: KETOROLAC TROMETHAMINE INJ/PF 30 MG/1 ML SDV IV ONE (13:40)
--- NOTE | 2018-11-25 13:42 | ER Document Report ---
ED Medical Screen (RME) - General Chief Complaint: Back Pain Stated Complaint: ABDOMINAL PAIN Time Seen by Provider: 11/25/18 13:35 Primary Care Provider: TAWNYA VARGAS MD [Primary Care Provider] - Follow up as needed Mode of Arrival: Ambulatory Information source: Patient Notes: This is a 53-year-old female with a history of urine infections who was treated in the last month for urinary infection who presents to the emergency room with persistent and worsening right flank pain. Patient does have a history of a hysterectomy in the past. 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 Erwin) but does not know exactly why it was placed at that time. Patient denies any fever. TRAVEL OUTSIDE OF THE [place] IN LAST 30 DAYS: No - Related Data Allergies/Adverse Reactions: No Known Allergies Allergy (Verified 11/25/18 12:57) Home Medications: xanax. prilosec. lamictal Past Medical History - Social History Chew tobacco use (# tins/day): No Frequency of alcohol use: None Drug Abuse: None - Past Medical History Cardiac Medical History: Denies: Hx Coronary Artery Disease, Hx Heart Attack, Hx Hypertension Pulmonary Medical History: Reports: Hx Asthma - MODERATE, Hx Bronchitis, Hx COPD, Hx Pneumonia Neurological Medical History: Denies: Hx Cerebrovascular Accident, Hx Seizures Endocrine Medical History: Reports: Hx Diabetes Mellitus Type 2 Renal/ Medical History: Denies: Hx Peritoneal Dialysis Malignancy Medical History: Reports: Hx Lymphoma GI Medical History: Reports: Hx Ulcer - STOMACH ,YEARS AGO. Denies: Hx Hepatitis, Hx Hiatal Hernia Musculoskeltal Medical History: Denies Hx Arthritis Infectious Medical History: Denies: Hx Hepatitis Past Surgical History: Reports: Hx Abdominal Surgery - Peg tube, Hx Hysterectomy, Hx Tonsillectomy, Hx Vascular Surgery - Right neck lymph nodes. Denies: Hx Mastectomy, Hx Open Heart Surgery, Hx Pacemaker - Immunizations Immunizations up to date: Yes Hx Diphtheria, Pertussis, Tetanus Vaccination: Yes Physical Exam - Vital signs Vitals: Temp Pulse Resp BP Pulse Ox 98.0 F 65 17 110/72 97 11/25/18 12:58 11/25/18 12:58 11/25/18 12:58 11/25/18 12:58 11/25/18 12:58 Course - Vital Signs Vital signs: Temp Pulse Resp BP Pulse Ox 98.0 F 65 17 110/72 97 11/25/18 12:58 11/25/18 12:58 11/25/18 12:58 11/25/18 12:58 11/25/18 12:58 Doctor's Discharge - Discharge Referrals: TAWNYA VARGAS MD [Primary Care Provider] - Follow up as needed
[2018-11-25 14:16] LABS: APPEARANCE,URINE SLIGHTLY-CLOUDY; BILIRUBIN,URINE NEGATIVE (NEGATIVE); COLOR,URINE YELLOW; GLUCOSE, URINE NEGATIVE (NEGATIVE); KETONES,URINE NEGATIVE (NEGATIVE); LEUKOCYTE ESTERASE,URINE LARGE (NEGATIVE); NITRITE,URINE NEGATIVE (NEGATIVE); PROTEIN,URINE NEGATIVE (NEGATIVE); URINE SPECIFIC GRAVITY 1.019; UROBILINOGEN,URINE NEGATIVE mg/dL (<2.0)
--- NOTE | 2018-11-25 15:09 | RADIOLOGY REPORT (SQ) ---
EXAM DESCRIPTION: CT ABD/PELVIS NO ORAL OR IV COMPLETED DATE/TIME: 11/25/2018 2:51 pm REASON FOR STUDY: right flank pain COMPARISON: None. TECHNIQUE: CT scan of the abdomen and pelvis performed without intravenous or oral contrast. Images reviewed with lung, soft tissue, and bone windows. Reconstructed coronal and sagittal MPR images revi ewed. All images stored on PACS. All CT scanners at this facility use dose modulation, iterative reconstruction, and/or weight based d osing when appropriate to reduce radiation dose to as low as reasonably achievable (ALARA). [facility]: Dose Right [facility]: CareDose [facility]: Dose Right [facility]: Teradose 4D [facility]: Oddcast RADIATION DOSE: CT Rad equipment meets quality standard of care and radiation dose reduction techniq ues were employed. CTDIvol: 4.8 mGy. DLP: 221 mGy-cm.mGy. LIMITATIONS: None. FINDINGS: LOWER CHEST: No significant findings. No nodules or infiltrates. NON-CONTRASTED LIVER, SPLEEN, ADRENALS: Evaluation limited by lack of IV contrast. No identified sign ificant masses. PANCREAS: No masses. No peripancreatic inflammatory changes. GALLBLADDER: No identified stones by CT criteria. No inflammatory changes to suggest cholecystitis. RIGHT KIDNEY AND URETER: No suspicious masses. Assessment limited by lack of IV contrast. Faint den sity pelvic right ureter image 56. No hydronephrosis or hydroureter. LEFT KIDNEY AND URETER: No suspicious masses. Assessment limited by lack of IV contrast. No signifi cant calcifications. No hydronephrosis or hydroureter. AORTA AND RETROPERITONEUM: No aneurysm. No retroperitoneal masses or adenopathy. BOWEL AND PERITONEAL CAVITY: No obvious masses or inflammatory changes. No free fluid. APPENDIX: Normal. PELVIS, BLADDER, AND ABDOMINAL WALL:No abnormal masses. No free fluid. Bladder normal. BONES: Nothing acute. OTHER: No other significant finding. IMPRESSION: Suspected tiny nonobstructing stone distal right ureter. Correlate with urinalysis. COMMENT: Quality ID # [id number]: Final reports with documentation of one or more dose reduction techniques (e.g., Automated exposure control, adjustment of the mA and/or kV according to patient size, use of iterative reconstruction technique) TECHNICAL DOCUMENTATION: JOB ID: [id number] [employer]- All Rights Reserved Reading location - IP/workstation name: [email or web address]
[2018-11-25] MEDS ORDERED: LEVOFLOXACIN 750 MG TABLET PO ONE (15:10)
--- NOTE | 2018-11-25 17:46 | ER Document Report ---
ED General - General Chief Complaint: Back Pain Stated Complaint: ABDOMINAL PAIN Time Seen by Provider: 11/25/18 13:35 Primary Care Provider: TAWNYA VARGAS MD [ACTIVE STAFF] - Follow up as needed Mode of Arrival: Ambulatory TRAVEL OUTSIDE OF THE [place] IN LAST 30 DAYS: No - HPI Notes: Presents to the emergency department for evaluation. She states she has had some urinary frequency and some right flank pain. She was actually seen by her primary care doctor on the . She states she also had vaginal discharge at that time. She did not have a pelvic exam. She had a prescription for Bactrim for 5 days written. She states she is felt somewhat better than continued to feel worse. She denies any fevers or chills. No nausea or vomiting. She states the vaginal discharge continues. She states she is in a monogamous relationship. She states she has not had any vaginal discharge since her hysterectomy. - Related Data Allergies/Adverse Reactions: No Known Allergies Allergy (Verified 11/25/18 12:57) Home Medications: xanax. prilosec. lamictal Past Medical History - General Information source: Patient - Social History Smoking Status: Current Every Day Smoker Chew tobacco use (# tins/day): No Frequency of alcohol use: None Drug Abuse: None Family History: Reviewed & Not Pertinent Patient has suicidal ideation: No Patient has homicidal ideation: No - Past Medical History Cardiac Medical History: Denies: Hx Coronary Artery Disease, Hx Heart Attack, Hx Hypertension Pulmonary Medical History: Reports: Hx Asthma - MODERATE, Hx Bronchitis, Hx COPD, Hx Pneumonia Neurological Medical History: Denies: Hx Cerebrovascular Accident, Hx Seizures Endocrine Medical History: Reports: Hx Diabetes Mellitus Type 2 Renal/ Medical History: Denies: Hx Peritoneal Dialysis Malignancy Medical History: Reports: Hx Lymphoma GI Medical History: Reports: Hx Ulcer - STOMACH ,YEARS AGO. Denies: Hx Hepatitis, Hx Hiatal Hernia Musculoskeletal Medical History: Denies Hx Arthritis Infectious Medical History: Denies: Hx Hepatitis Past Surgical History: Reports: Hx Abdominal Surgery - Peg tube, Hx Hysterectomy, Hx Tonsillectomy, Hx Vascular Surgery - Right neck lymph nodes. Denies: Hx Mastectomy, Hx Open Heart Surgery, Hx Pacemaker - Immunizations Immunizations up to date: Yes Hx Diphtheria, Pertussis, Tetanus Vaccination: Yes Hx Pneumococcal Vaccination: 09/21/10 Review of Systems - Review of Systems Constitutional: No symptoms reported EENT: No symptoms reported Cardiovascular: No symptoms reported Respiratory: No symptoms reported Gastrointestinal: No symptoms reported Genitourinary: See HPI Musculoskeletal: See HPI Skin: No symptoms reported Neurological/Psychological: No symptoms reported Physical Exam - Vital signs Vitals: Temp Pulse Resp BP Pulse Ox 98.0 F 65 17 110/72 97 11/25/18 12:58 11/25/18 12:58 11/25/18 12:58 11/25/18 12:58 11/25/18 12:58 - Notes Notes: Vital signs reviewed, please refer to chart. Patient is normocephalic, atraumatic. Pupils equal round, reactive to light. Neck is supple without meningismus. Heart is regular rate and rhythm. Lungs are clear to auscultation bilaterally. Abdomen is soft, nontender, normoactive bowel sounds throughout. Extremities without cyanosis, clubbing, edema. Peripheral pulses are equal. Skin is warm and dry. Patient is awake, alert, neurological exam is nonfocal. Course - Re-evaluation Re-evalutation: 11/25/18 17:42 Patient presented to the emergency department for evaluation. She had urinalysis is ordered by triage. This did reveal leukocyte Estrace but was nitrite negative. I am not convinced based on this that she actually has a urinary tract infection. I did tell the patient that she needed a pelvic exam. She was amenable to this. Pelvic set up was ordered. Before I was able to return to the room, I was notified by nursing that the patient was frustrated and wanted to leave AGAINST MEDICAL ADVICE. She would not wait until I can talk to her. She voiced understanding to potential complications and still was very angry. She had refused any medications as ordered by triage. She refused to wait for pelvic or for explanation for me. The patient left AGAINST MEDICAL ADVICE. Please see nursing documentation. 11/25/18 17:43 - Vital Signs Vital signs: Temp Pulse Resp BP Pulse Ox 98.0 F 65 17 110/72 97 11/25/18 12:58 11/25/18 12:58 11/25/18 12:58 11/25/18 12:58 11/25/18 12:58 - Laboratory Laboratory results interpreted by me: 11/25/18 13:41 Ur Leukocyte Esterase LARGE H Discharge - Discharge Clinical Impression: Left against medical advice Disposition: AGAINST MEDICAL ADVICE Referrals: TAWNYA VARGAS MD [ACTIVE STAFF] - Follow up as needed
== END 2018-11-25 16:44 | disposition left against medical advice (07) ==
LOC: ER 12:54
DX: M54.9 Dorsalgia, unspecified (principal); R10.9 Unspecified abdominal pain; R35.0 Frequency of micturition; F17.200 Nicotine dependence, unspecified, uncomplicated; E11.9 Type 2 diabetes mellitus without complications; Z90.710 Acquired absence of both cervix and uterus
CPT/HCPCS: 99281; 87086; 81001; 74176; J3490

== ENCOUNTER → 2019-03-03 | Outpatient (CLI) | payer MEDICAID ==
--- NOTE | 2019-03-04 08:20 | RADIOLOGY REPORT (SQ) ---
EXAM DESCRIPTION: C SP 4 OR 5 VIEWS COMPLETED DATE/TIME: 03/03/2019 5:28 pm REASON FOR STUDY: CERVICALGIA M54.2 CERVICALGIA COMPARISON: 02/18/2013 NUMBER OF VIEWS: Five views. TECHNIQUE: AP, lateral, obliques and odontoid radiographic images acquired of the cervical spine. LIMITATIONS: None. FINDINGS: MINERALIZATION: Normal. ALIGNMENT: Normal anatomic alignment. The lateral film the patient is flexed. Similar but less prom inent findings were noted on prior study. VERTEBRAE: Vertebral bodies of normal height. DISCS: No significant osteophytes or sclerosis. Disc height maintained. FORAMINA: No osteophytes or foraminal narrowing. LATERAL AND POSTERIOR ELEMENTS: Facets, lateral masses and spinous processes without significant find ings. HARDWARE: None in the spine. SOFT TISSUES: No masses or calcifications. Lung apices clear. OTHER: No other significant finding. IMPRESSION: NO SIGNIFICANT RADIOGRAPHIC FINDING IN THE CERVICAL SPINE. TECHNICAL DOCUMENTATION: JOB ID: [id number] [employer]- All Rights Reserved Reading location - IP/workstation name: [email or web address]
== END ==
LOC: OD 16:53
PROVIDERS: ATTEND Physician Assistant
DX: M54.2 Cervicalgia (principal)
CPT/HCPCS: 72050

== ENCOUNTER 2019-09-02 11:28 | Emergency (ER) | payer MEDICAID ==
[2019-09-02] MEDS ORDERED: TETRACAINE HCL 0.5% OPH SOLN 4 ML OS ONE (12:18)
--- NOTE | 2019-09-02 12:21 | ER Document Report ---
HPI - HPI Time Seen by Provider: 09/02/19 12:15 Pain Level: 3 Notes: Patient is a 54-year-old female with a history of stage IV cancer that is in remission since 2012 and high blood pressure who presents complaining of left eye irritation and blurring that began yesterday. Patient states that she was cleaning out a vacuum that has some dust around it and some may have irritated her eye or gotten in it. Patient states that she did flush her eye out at home, but did not have any significant improvement. She has noticed some tearing. She does not wear contact lenses. No recent illness. Denies any headache, fever, neck pain, URI, sore throat, chest pain, palpitations, syncope, cough, shortness of breath, wheeze, dyspnea, abdominal pain, nausea/vomiting/diarrhea, urinary retention, dysuria, hematuria, or rash. - ROS Systems Reviewed and Negative: Yes All other systems reviewed and negative - REPRODUCTIVE Reproductive: DENIES: : Past Medical History - Social History Smoking Status: Current Every Day Smoker Chew tobacco use (# tins/day): No Frequency of alcohol use: None Drug Abuse: None Family History: Reviewed & Not Pertinent Patient has suicidal ideation: No Patient has homicidal ideation: No - Past Medical History Cardiac Medical History: Denies: Hx Coronary Artery Disease, Hx Heart Attack, Hx Hypertension Pulmonary Medical History: Reports: Hx Asthma - MODERATE, Hx Bronchitis, Hx COPD, Hx Pneumonia Neurological Medical History: Denies: Hx Cerebrovascular Accident, Hx Seizures Endocrine Medical History: Reports: Hx Diabetes Mellitus Type 2 Renal/ Medical History: Denies: Hx Peritoneal Dialysis Malignancy Medical History: Reports: Hx Lymphoma GI Medical History: Reports: Hx Ulcer - STOMACH ,YEARS AGO. Denies: Hx Hepatitis, Hx Hiatal Hernia Musculoskeletal Medical History: Denies Hx Arthritis Infectious Medical History: Denies: Hx Hepatitis Past Surgical History: Reports: Hx Abdominal Surgery - Peg tube, Hx Hysterectomy, Hx Tonsillectomy, Hx Vascular Surgery - Right neck lymph nodes. Denies: Hx Mastectomy, Hx Open Heart Surgery, Hx Pacemaker - Immunizations Immunizations up to date: Yes Hx Diphtheria, Pertussis, Tetanus Vaccination: Yes Hx Pneumococcal Vaccination: 09/21/10 Vertical Provider Document - CONSTITUTIONAL Agree With Documented VS: Yes Notes: PHYSICAL EXAMINATION: GENERAL: Well-appearing, well-nourished and in no acute distress. A&Ox4 HEAD: Atraumatic, normocephalic. EYES: Pupils equal round and reactive to light, extraocular movements intact, sclera anicteric, conjunctiva b/l w/o injection discharge or matting. Non-tender to palp of the globe and eye itself. No surrounding erythema or swelling noted. Visual acuity 20/50 left, 20/30 rt. Wood's lamp/flourescein: No abrasion, laceration, ulceration, or jennifer sign noted. No obvious foreign body appreciated. Tonometry: 25 Left eye, 17 right eye ENT: Nares patent and without discharge. oropharynx clear without exudates. No tonsilar hypertrophy or erythema. Moist mucous membranes. No sinus tenderness. Uvula midline. No palatine shift. No airway compromise. No drooling or hoarseness. NECK: Normal range of motion, supple without lymphadenopathy. No rigidity/meningismus. LUNGS: Breath sounds clear to auscultation bilaterally and equal. No wheezes rales or rhonchi. HEART: Regular rate and rhythm without murmurs, rubs, gallops. Extremities: No cyanosis, clubbing, or edema b/l. Peripheral pulses 2+. Capillary refill less than 3 seconds. NEUROLOGICAL: Cranial nerves grossly intact. Normal speech, normal gait. PSYCH: Normal mood, normal affect. SKIN: Warm, Dry, normal turgor, no rashes or lesions noted. - INFECTION CONTROL TRAVEL OUTSIDE OF THE [place] IN LAST 30 DAYS: No Course - Re-evaluation Re-evalutation: 09/02/19 13:[address] Bell who is in agreemend with dispo/plan: Patient is an afebrile, well-hydrated, 54-year-old female who presents to the emergency department with irritation unspecified to left eye with blurriness. Vitals are acceptable without significant tachycardia, tachypnea, or hypoxia. PE is otherwise unremarkable. Patient is nontoxic-appearing and is able to tolerate p.o. without difficulty. No labs or imaging warranted. Low suspicion for any retained corneal or lid foreign body, deep space infection including orbital cellulitis/abscess, acute glaucoma, penetrating globe injury, retinal detachment, meningitis, sepsis, fracture, compartment syndrome. I will send home with a prescription for Polytrim to use as directed. Conservative measures otherwise for symptoms with proper handwashing. Recheck with your PCM in 3-5 days. Call ophthalmology today to schedule f/u. Return to the ED with any worsening/concerning symptoms otherwise as reviewed in discharge. Patient is in agreement. - Vital Signs Vital signs: Temp Pulse Resp BP Pulse Ox 98.0 F 82 18 116/102 H 97 09/02/19 12:13 09/02/19 11:32 09/02/19 12:13 09/02/19 11:32 09/02/19 12:13 Procedures - Eye Procedure Left Eye Irrigated w/ Saline (ccs): 20 Alcaine Drops Administered: Yes - tetracaine Fluorescein applied: Left Discharge - Discharge Clinical Impression: Irritation of left eye Condition: Stable Disposition: HOME, SELF-CARE Additional Instructions: Keep eyes clean Avoid scratching/touching eyes Wash hands regularly Use eye drops as directed Maintain adequate fluid intake tylenol/ibuprofen as needed over the counter cold medication as needed for symptoms F/u: with your PCM in 2-3 days for a recheck Schedule appoint with ophthalmology for further evaluation and management, call today to schedule. Return to the ED with any worsening symptoms and/or development of fever, headache, changes in vision, eye pain, worsening eye redness, redness around the eyes, purulent discharge, sore throat, facial swelling, neck pain/stiffness, chest pain, palpitations, syncope, shortness of breath, trouble breathing, abdominal pain, n/v/d, blood in stool/urine, dysuria, or other worsening symptoms that are concerning to you. Prescriptions: Polymyxin B Sulf/Trimethoprim [Polytrim Eye Drops] 1 drop OD Q3H #10 ml Forms: Elevated Blood Pressure, Smoking Cessation Education Referrals: TEREZA LEDEZMA PA-C [ALLIED HEALTH PROFESSIONAL] - Follow up as needed ALICE MALIK MD [ACTIVE STAFF] - Follow up as needed
[2019-09-02 13:21] VITALS: BP 107/70
== END 2019-09-02 13:21 | disposition home or self-care (01) ==
LOC: ER 11:28
DX: H53.8 Other visual disturbances (principal); F17.200 Nicotine dependence, unspecified, uncomplicated; E11.9 Type 2 diabetes mellitus without complications; Z90.710 Acquired absence of both cervix and uterus
CPT/HCPCS: 99283; J3490

== ENCOUNTER 2019-09-25 05:46 | Observation (INO) | payer MEDICAID ==
[2019-09-25] MEDS ORDERED: NALOXONE HCL INJ 2 MG/2 ML DISP.SYRIN ONE (05:57)
[2019-09-25] MEDS ORDERED: NORMAL SALINE 1000 ML 1,000 ML IV ONE (06:22)
[2019-09-25 06:27] LABS: HEMATOCRIT 36.4 % (36.0-47.0); MEAN CORPUSCULAR HEMOGLOBIN 29.7 pg (27.0-33.4); MEAN CORPUSCULAR HGB CONC 33.1 g/dL (32.0-36.0); MEAN CORPUSCULAR VOLUME 90 fl (80-97); PLATELET COUNT 421 10^3/uL (150-450); RED BLOOD COUNT 4.05 10^6/uL (3.72-5.28); RED CELL DISTRIBUTION WIDTH 14.6 % (11.5-14.0); WHITE BLOOD COUNT 24.4 10^3/uL (4.0-10.5)
[2019-09-25 06:41] LABS: ALBUMIN 3.6 g/dL (3.5-5.0); ALKALINE PHOSPHATASE 115 U/L (38-126); ANION GAP 7 (5-19); ASPARTATE AMINO TRANSFERASE 22 U/L (14-36); BILIRUBIN,DIRECT 0.3 mg/dL (0.0-0.4); BILIRUBIN,TOTAL 0.4 mg/dL (0.2-1.3); BLOOD UREA NITROGEN 18 mg/dL (7-20); CALCIUM 8.9 mg/dL (8.4-10.2); CARBON DIOXIDE 31 mmol/L (22-30); CHLORIDE 103 mmol/L (98-107); CREATINE KINASE 43 U/L (30-135); GLUCOSE 139 mg/dL (75-110); POTASSIUM 4.4 mmol/L (3.6-5.0); TOTAL PROTEIN 6.5 g/dL (6.3-8.2)
[2019-09-25 06:44] LABS: ALCOHOL < 10 mg/dL (NONE DETECTED)
[2019-09-25 06:52] LABS: CREATINE KINASE MB 1.02 ng/mL (<4.55); NT PRO BNP 314 pg/mL (<125)
[2019-09-25 06:59] LABS: TROPONIN I < 0.012 ng/mL
--- NOTE | 2019-09-25 07:24 | RADIOLOGY REPORT (SQ) ---
Chest single view on 09/25/2019 at 6:14 AM CLINICAL INDICATION: Shortness of breath COMPARISON: 11/06/2017 FINDINGS: There is minimal basilar atelectasis or scarring. The lungs are otherwise clear. Vascular calcification is noted in the aorta. Cardiac, hilar and mediastinal contours are within normal limits. Pulmonary vascularity is within normal limits. IMPRESSION: No acute disease.
[2019-09-25 07:27] LABS: ABSOLUTE LYMPHOCYTES# (MANUAL) 1.2 10^3/uL (0.5-4.7); BASOPHILS % (MANUAL) 0 % (0-2); EOSINOPHILS % (MANUAL) 0 % (0-6); LYMPHOCYTES % (MANUAL) 5 % (13-45); MONOCYTES % (MANUAL) 4 % (3-13); SEGMENTED NEUTROPHILS % (MAN) 91 % (42-78); TOTAL CELLS COUNTED 100
[2019-09-25 07:28] LABS: ANISOCYTOSIS SLIGHT; PLATELET COMMENT ADEQUATE
[2019-09-25 08:25] LABS: APPEARANCE,URINE SLIGHTLY-CLOUDY; BILIRUBIN,URINE NEGATIVE (NEGATIVE); COLOR,URINE YELLOW; GLUCOSE, URINE NEGATIVE (NEGATIVE); KETONES,URINE NEGATIVE (NEGATIVE); LEUKOCYTE ESTERASE,URINE NEGATIVE (NEGATIVE); NITRITE,URINE NEGATIVE (NEGATIVE); PROTEIN,URINE 30 mg/dL (NEGATIVE); UROBILINOGEN,URINE NEGATIVE mg/dL (<2.0)
[2019-09-25 08:40] LABS: URINE AMPHETAMINES SCREEN NEGATIVE; URINE BARBITURATES SCREEN NEGATIVE; URINE BENZODIAZEPINES SCREEN NEGATIVE; URINE COCAINE SCREEN NEGATIVE; URINE PHENCYCLIDINE SCREEN NEGATIVE
[2019-09-25 08:48] LABS: URINE MARIJUANA (THC) SCREEN UNCONFIRMED POSITIVE; URINE METHADONE SCREEN UNCONFIRMED POSITIVE
--- NOTE | 2019-09-25 08:49 | ER Document Report ---
ED General - General Chief Complaint: Breathing Difficulty Stated Complaint: BREATHING PROBLEMS TRAVEL OUTSIDE OF THE [place] IN LAST 30 DAYS: No - HPI Notes: per prior note history of stage IV cancer that is in remission since 2012 - Related Data Allergies/Adverse Reactions: No Known Allergies Allergy (Verified 09/02/19 12:13) Past Medical History - Social History Smoking Status: Current Some Day Smoker Family History: Reviewed & Not Pertinent Patient has suicidal ideation: No Patient has homicidal ideation: No - Past Medical History Cardiac Medical History: Denies: Hx Coronary Artery Disease, Hx Heart Attack, Hx Hypertension Pulmonary Medical History: Reports: Hx Asthma - MODERATE, Hx Bronchitis, Hx COPD, Hx Pneumonia Neurological Medical History: Denies: Hx Cerebrovascular Accident, Hx Seizures Endocrine Medical History: Reports: Hx Diabetes Mellitus Type 2 Renal/ Medical History: Denies: Hx Peritoneal Dialysis Malignancy Medical History: Reports: Hx Lymphoma GI Medical History: Reports: Hx Ulcer - STOMACH ,YEARS AGO. Denies: Hx Hep atitis, Hx Hiatal Hernia Musculoskeletal Medical History: Denies Hx Arthritis Infectious Medical History: Denies: Hx Hepatitis Past Surgical History: Reports: Hx Abdominal Surgery - Peg tube, Hx Hysterectomy, Hx Tonsillectomy, Hx Vascular Surgery - Right neck lymph nodes. Denies: Hx Mastectomy, Hx Open Heart Surgery, Hx Pacemaker - Immunizations Immunizations up to date: Yes Hx Diphtheria, Pertussis, Tetanus Vaccination: Yes Hx Pneumococcal Vaccination: 09/21/10 Physical Exam - Vital signs Vitals: BP 78/53 L 09/25/19 05:50 Course - Re-evaluation Re-evalutation: 09/25/19 09:10 Reviewed EKG today no significant changes compared to prior in 2018. Chest x- ray single view reviewed today hyperinflation unchanged. No oralia consolidations no pneumothoraces will obtain lateral view - Vital Signs Vital signs: Temp Pulse Resp BP Pulse Ox 99.0 F 16 104/67 81 L 09/25/19 08:03 09/25/19 10:01 09/25/19 10:01 09/25/19 10:01 - Laboratory Result Diagrams: 09/25/19 06:07 09/25/19 06:07 Laboratory results interpreted by me: 09/25/19 09/25/19 09/25/19 06:07 06:07 06:07 WBC 24.4 H RDW 14.6 H Seg Neuts % (Manual) 91 H Lymphocytes % (Manual) 5 L Abs Neuts (Manual) 22.2 H Carbon Dioxide 31 H Glucose 139 H NT-Pro-B Natriuret Pep 314 H Urine Protein 09/25/19 07:50 WBC RDW Seg Neuts % (Manual) Lymphocytes % (Manual) Abs Neuts (Manual) Carbon Dioxide Glucose NT-Pro-B Natriuret Pep Urine Protein 30 H Discharge - Discharge Clinical Impression: Sepsis associated hypotension, COPD exacerbation, Smoker Fever Qualifiers: Fever type: unspecified Qualified Code(s): R50.9 - Fever, unspecified Pneumonia Qualifiers: Aspiration pneumonia type: unspecified Laterality: right Lung location: lower lobe of lung Heroin overdose Qualifiers: Encounter type: initial encounter Injury intent: accidental or unintentional Qualified Code(s): T40.1X1A - Poisoning by heroin, accidental (unintentional), initial encounter Condition: Poor Disposition: ADMITTED INPATIENT Admitting Provider: frandy (hospitalist) Unit Admitted: [facility]
[2019-09-25] MEDS ORDERED: RINGERS SOLUTION,LACTATED 1,000 ML IV ONE (09:13)
--- NOTE | 2019-09-25 09:34 | RADIOLOGY REPORT (SQ) ---
EXAM DESCRIPTION: CHEST SINGLE VIEW COMPLETED DATE/TIME: 09/25/2019 9:19 am REASON FOR STUDY: sob COMPARISON: CT chest 10/29/2017 Chest films 09/25/2019, 11/06/2017, 08/25/2016 EXAM PARAMETERS: NUMBER OF VIEWS: One view. TECHNIQUE: Single frontal radiographic view of the chest acquired. RADIATION DOSE: NA LIMITATIONS: None. FINDINGS: LUNGS AND PLEURA: Lungs are hyperinflated and hyperlucent from obstructive disease. There is scarring at the right lung base from pneumonia in 2018. No acute infiltrates. No pleural effusi on. No pneumothorax. MEDIASTINUM AND HILAR STRUCTURES: No masses. Contour normal. HEART AND VASCULAR STRUCTURES: Heart normal in size. Normal vasculature. BONES: No acute findings. HARDWARE: Surgical clips in the right neck at the thoracic inlet post right lobe thyroidectomy OTHER: No other significant finding. IMPRESSION: COPD No acute findings Scarring right lung base TECHNICAL DOCUMENTATION: JOB ID: [id number] [email or web address] All Rights Reserved Reading location - IP/workstation name: [email or web address]
--- NOTE | 2019-09-25 09:59 | EKG REPORT ---
SEVERITY:- ABNORMAL ECG - SINUS TACHYCARDIA RIGHT ATRIAL ABNORMALITY NONSPECIFIC ANTEROLATERAL ST-T CHANGES : Confirmed by: Andrew Meraz MD 25-Sep-2019 09:59:15
[2019-09-25] MEDS ORDERED: METHYLPREDNISOLONE INJ 125 MG/2 ML SDV IV ONE (10:01)
[2019-09-25] MEDS: IPRATROPIUM/ALBUTEROL 0.5-2.5 MG/3 ML AMPUL NEB PRN ×2 (10:12→10:35)
[2019-09-25 10:49] LABS: A TYPE INFLUENZA AG NEGATIVE (NEGATIVE); B INFLUENZA AG NEGATIVE (NEGATIVE)
[2019-09-25] MEDS ORDERED: AZITHROMYCIN INJ 500 MG VIAL IV ONE (11:16)
--- NOTE | 2019-09-25 11:22 | RADIOLOGY REPORT (SQ) ---
EXAM DESCRIPTION: CHEST SINGLE VIEW COMPLETED DATE/TIME: 09/25/2019 11:02 am REASON FOR STUDY: need lateral view sob COMPARISON: AP chest earlier today EXAM PARAMETERS: NUMBER OF VIEWS: One view. TECHNIQUE: Single frontal radiographic view of the chest acquired. RADIATION DOSE: NA LIMITATIONS: None. FINDINGS: LUNGS AND PLEURA: Minimal right basilar scarring. Trace fluid in the bilateral posterior costophrenic sulci MEDIASTINUM AND HILAR STRUCTURES: No masses. Contour normal. HEART AND VASCULAR STRUCTURES: Heart normal in size. Normal vasculature. BONES: No acute findings. HARDWARE: None in the chest. OTHER: No other significant finding. IMPRESSION: Trace fluid in the posterior costophrenic sulci TECHNICAL DOCUMENTATION: JOB ID: [id number] [employer]- All Rights Reserved Reading location - IP/workstation name: [email or web address]
[2019-09-25] MEDS ORDERED: ONDANSETRON HCL INJ/PF 4 MG/2 ML SDV IV PRN (13:00)
[2019-09-25] MEDS ORDERED: MAG HYDROX/AL HYDROX/SIMETH SUSP 30 ML UDCUP PO PRN (13:00)
[2019-09-25] MEDS ORDERED: ALBUTEROL SULFATE 0.083% NEB 2.5 MG/3 ML AMPUL NEB PRN (13:00)
[2019-09-25] MEDS ORDERED: MAGNESIUM HYDROXIDE SUSP 30 ML UDCUP PO PRN (13:00)
[2019-09-25] MEDS ORDERED: ACETAMINOPHEN 325 MG TABLET PO PRN (13:00)
[2019-09-25] MEDS ORDERED: NORMAL SALINE 1000 ML 1,000 ML IV PRN (13:00)
--- NOTE | 2019-09-25 13:17 | RADIOLOGY REPORT (SQ) ---
EXAM DESCRIPTION: CT CHEST WITH COMPLETED DATE/TIME: 09/25/2019 12:21 pm REASON FOR STUDY: fever, leukocytosis, acute resp failure COMPARISON: CT chest 03/20/2011, 09/28/2014, 10/29/2017 TECHNIQUE: CT scan of the chest performed using helical scanning technique with dynamic intravenous contrast injection. Images reviewed with lung, soft tissue and bone windows. Reconstructed coronal and sagittal MPR and MIP images reviewed. All images stored on PACS. All CT scanners at this facility use dose modulation, iterative reconstruction, and/or weight based d osing when appropriate to reduce radiation dose to as low as reasonably achievable (ALARA). [facility]: Dose Right [facility]: CareDose [facility]: Dose Right [facility]: Teradose 4D [facility]: Apptio CONTRAST TYPE AND DOSE: contrast/concentration: Isovue 350.00 mg/ml; Total Contrast Delivered: 80.0 ml; Total Saline Delivered: 36.3 ml RENAL FUNCTION: Creatinine 0.8 RADIATION DOSE: CT Rad equipment meets quality standard of care and radiation dose reduction techniq ues were employed. CTDIvol: 2.8 mGy. DLP: 112 mGy-cm. . LIMITATIONS: None. FINDINGS: LUNGS AND PLEURA: 11 mm pleural-based nodule right posterior lung base axial image 95/133. This is also seen on sagittal image 22/58 There is minimal interstitial scarring in the right posterolateral lung base on axial images 99-104 i n an area of very dense pneumonia seen in October 2017. This likely represents postinflammatory sca rring No acute infiltrates. No pleural effusion. No pneumothorax. HILAR AND MEDIASTINAL STRUCTURES: No identified masses or abnormal nodes. HEART AND VASCULAR STRUCTURES: No aneurysm or dissection. No central pulmonary emboli. No pericardi al effusion. HARDWARE: None in the chest. UPPER ABDOMEN: No significant findings. Limited exam. THYROID AND OTHER SOFT TISSUES: Clips post right lobe thyroidectomy BONES: No significant finding. OTHER: No other significant finding. IMPRESSION: No acute infiltrates 11 mm nodule right lung base TECHNICAL DOCUMENTATION: JOB ID: [id number] Quality ID # [id number]: Final reports with documentation of one or more dose reduction techniques (e.g., Au tomated exposure control, adjustment of the mA and/or kV according to patient size, use of iterative reconstruction technique) 2010 [employer]- All Rights Reserved Reading location - IP/workstation name: [email or web address]
[2019-09-25] MEDS ORDERED: NICOTINE 14 MG/24 HR PATCH.TD24 TD PRN (13:40)
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
[2019-09-25] MEDS: IPRATROPIUM/ALBUTEROL 0.5-2.5 MG/3 ML AMPUL NEB SCH ×2 (14:22→21:05)
[2019-09-25] MEDS: HEPARIN SOD (PORCINE) 5,000 UNIT/ML 1 ML VIAL SUBCUT SCH ×2 (15:21→21:39)
[2019-09-25] MEDS: METHYLPREDNISOLONE INJ 40 MG/1 ML SDV IV SCH (18:42)
[2019-09-25] MEDS: GUAIFENESIN 600 MG TABLET.SA PO SCH (21:39)
[2019-09-25] MEDS: FAMOTIDINE 20 MG TABLET PO SCH (21:39)
[2019-09-26] MEDS: METHYLPREDNISOLONE INJ 40 MG/1 ML SDV IV SCH ×2 (01:34→09:26)
[2019-09-26] MEDS: IPRATROPIUM/ALBUTEROL 0.5-2.5 MG/3 ML AMPUL NEB SCH ×3 (02:08→14:13)
[2019-09-26] MEDS: HEPARIN SOD (PORCINE) 5,000 UNIT/ML 1 ML VIAL SUBCUT SCH ×2 (05:41→14:23)
[2019-09-26 06:18] LABS: HEMATOCRIT 30.8 % (36.0-47.0); HEMOGLOBIN 10.3 g/dL (12.0-15.5); MEAN CORPUSCULAR HEMOGLOBIN 29.7 pg (27.0-33.4); MEAN CORPUSCULAR HGB CONC 33.5 g/dL (32.0-36.0); MEAN CORPUSCULAR VOLUME 89 fl (80-97); PLATELET COUNT 372 10^3/uL (150-450); RED BLOOD COUNT 3.47 10^6/uL (3.72-5.28); RED CELL DISTRIBUTION WIDTH 14.4 % (11.5-14.0); WHITE BLOOD COUNT 13.3 10^3/uL (4.0-10.5)
[2019-09-26 06:31] LABS: ANION GAP 8 (5-19); BLOOD UREA NITROGEN 17 mg/dL (7-20); CALCIUM 8.6 mg/dL (8.4-10.2); CARBON DIOXIDE 27 mmol/L (22-30); CHLORIDE 106 mmol/L (98-107); GLUCOSE 128 mg/dL (75-110)
[2019-09-26 06:57] LABS: ABSOLUTE LYMPHOCYTES# (MANUAL) 0.4 10^3/uL (0.5-4.7); ABSOLUTE MONOCYTES # (MANUAL) 0.1 10^3/uL (0.1-1.4); BASOPHILS % (MANUAL) 0 % (0-2); EOSINOPHILS % (MANUAL) 0 % (0-6); LYMPHOCYTES % (MANUAL) 3 % (13-45); MONOCYTES % (MANUAL) 1 % (3-13); SEGMENTED NEUTROPHILS % (MAN) 96 % (42-78); TOTAL CELLS COUNTED 100
[2019-09-26 07:05] LABS: OVALOCYTES 1+; TOXIC GRANULATION SLIGHT
[2019-09-26 07:06] LABS: ANISOCYTOSIS SLIGHT; PLATELET COMMENT ADEQUATE; POIKILOCYTOSIS SLIGHT
[2019-09-26] MEDS: GUAIFENESIN 600 MG TABLET.SA PO SCH (09:25)
[2019-09-26] MEDS: FAMOTIDINE 20 MG TABLET PO SCH (09:25)
[2019-09-26] MEDS ORDERED: METHADONE HCL 10 MG TABLET PO SCH (10:00)
[2019-09-26] MEDS ORDERED: DOCUSATE SODIUM 100 MG CAPSULE PO SCH (10:00)
[2019-09-26] MEDS ORDERED: CEFTRIAXONE 1 GM/D5W RTU 1 GM/50 ML RTUPB IV ONE (11:16)
--- NOTE | 2019-09-26 15:18 | PDOC DISCHARGE SUMMARY ---
Impression - Admit/DC Date/PCP Admission Date/Primary Care Provider: 09/25/19 12:16 Discharge Date: 09/26/19 - Discharge Diagnosis (1) COPD exacerbation Is this a current diagnosis for this admission?: Yes (2) Heroin overdose Is this a current diagnosis for this admission?: Yes (3) Acute respiratory failure with hypoxia Is this a current diagnosis for this admission?: Yes (4) Tobacco dependence Is this a current diagnosis for this admission?: Yes (5) Leukocytosis Is this a current diagnosis for this admission?: Yes - Additional Information Resuscitation Status: Full Code Discharge Diet: Regular Discharge Activity: Activity As Tolerated, Balance Activity w/Rest Referrals: RODOLFO ARANA NP [NURSE PRACTITIONER] - 10/05/19 1:00 pm Prescriptions: Prednisone [Deltasone 20 mg Tablet] 60 mg PO DAILY #12 tablet Ipratropium/Albuterol Sulfate [Duoneb 3 ml Ampul] 3 ml NEB RTQ6HP PRN #60 vial.neb PRN Reason: Guaifenesin [Mucinex Sr 600 mg Tablet.sa] 600 mg PO Q12 #14 tablet.sa Nicotine [Nicoderm 14 mg/24 Hr Transdermal Patch] 1 each TD DAILYP PRN #30 patch.td24 PRN Reason: Home Medications: Levothyroxine Sodium [Synthroid 0.112 mg Tablet] 0.112 mg PO Q6AM 09/25/19 Methadone HCl [Dolophine 10 mg Tablet] 20 mg PO DAILY 09/25/19 Omeprazole 20 mg PO BID 09/25/19 Guaifenesin [Mucinex Sr 600 mg Tablet.sa] 600 mg PO Q12 #14 tablet.sa 09/26/19 Ipratropium/Albuterol Sulfate [Duoneb 3 ml Ampul] 3 ml NEB RTQ6HP PRN #60 vial.neb 09/26/19 Nicotine [Nicoderm 14 mg/24 Hr Transdermal Patch] 1 each TD DAILYP PRN #30 patch.td24 09/26/19 Prednisone [Deltasone 20 mg Tablet] 60 mg PO DAILY #12 tablet 09/26/19 History of Present Illiness History of Present Illness: JULIET GOMEZ is a 54 year old female with a past medical history of COPD, tobacco dependence with continuous use, substance abuse with continuous use, and recent multiple heroin overdoses requiring EMS response and Narcan on scene who presented to the emergency department via EMS today with complaint of shortness of breath. On arrival, EMS found the patient minimally responsive, tachypneic with oxygen saturations in the 80s, and a temperature of 102. She was provided Narcan and nebulizer treatments with improved alertness and respirations. Evaluation in the emergency department reveals temperature 99, hypoxia on room air, Leukocytosis (WBCs 24), unremarkable chemistry, normal troponin, negative urinalysis, UDS positive for opiates, methadone, and marijuana, negative influenza, EKG shows sinus tach, and CXR negative for acute findings. Patient is referred to the hospitalist service for admission and management of the above stated findings. Hospital Course Hospital Course: Patient was admitted to the medical floor on continuous cardiac telemetry. She was provided supplemental oxygen, scheduled and as needed nebulizer treatments, IV Solu-Medrol, Mucinex, with pulmonary toilet encouraged. Her symptoms rapidly improved and by the following morning, she was asymptomatic and ambulatory on room air. Did contact the patient's treatment center to verify methadone dosing; received 20 mg daily. She did receive a dose of methadone prior to her discharge on 09/26/2019. She is strongly encouraged to discontinue recreational drug use and to follow-up with treatment center as scheduled. Patient is discharged home in stable condition. She is instructed to follow-up with her primary care provider within 1 week. She is advised to follow-up with the [facility] as scheduled. She is instructed to stop smoking using recreational drugs. Take medications as prescribed. Return to emergency department as needed for concerning symptoms. Physical Exam Vital Signs: Temp Pulse Resp BP Pulse Ox 97.7 F 71 18 116/68 93 09/26/19 12:20 09/26/19 14:13 09/26/19 14:13 09/26/19 12:20 09/26/19 14:13 Intake & Output 09/25/19 09/26/19 09/27/19 06:59 06:59 06:59 Intake Total 2150 1050 Balance 2150 1050 Weight 48.3 kg General appearance: PRESENT: no acute distress, disheveled, thin, well-developed Head exam: PRESENT: atraumatic, normocephalic Eye exam: PRESENT: conjunctiva pink, EOMI, PERRLA. ABSENT: scleral icterus Ear exam: PRESENT: normal external ear exam Mouth exam: PRESENT: moist, tongue midline Teeth exam: PRESENT: poor dentation Respiratory exam: PRESENT: clear to auscultation awais, symmetrical, unlabored. ABSENT: rales, rhonchi, wheezes Cardiovascular exam: PRESENT: RRR, +S1, +S2. ABSENT: diastolic murmur, rubs, systolic murmur Vascular exam: PRESENT: normal capillary refill Extremities exam: PRESENT: full ROM. ABSENT: calf tenderness, clubbing, pedal edema Musculoskeletal exam: PRESENT: ambulatory Neurological exam: PRESENT: alert, awake, oriented to person, oriented to place, oriented to time, oriented to situation, CN II-XII grossly intact. ABSENT: motor sensory deficit Psychiatric exam: PRESENT: appropriate affect, normal mood. ABSENT: homicidal ideation, suicidal ideation Skin exam: PRESENT: dry, intact, warm. ABSENT: cyanosis, rash Results Laboratory Results: WBC 13.3 10^3/uL (4.0-10.5) H 09/26/19 05:34 RBC 3.47 10^6/uL (3.72-5.28) L 09/26/19 05:34 Hgb 10.3 g/dL (12.0-15.5) L 09/26/19 05:34 Hct 30.8 % (36.0-47.0) L 09/26/19 05:34 MCV 89 fl (80-97) 09/26/19 05:34 MCH 29.7 pg (27.0-33.4) 09/26/19 05:34 MCHC 33.5 g/dL (32.0-36.0) 09/26/19 05:34 RDW 14.4 % (11.5-14.0) H 09/26/19 05:34 Plt Count 372 10^3/uL (150-450) 09/26/19 05:34 Lymph % (Auto) Not Reportable 09/26/19 05:34 Cook % (Auto) Not Reportable 09/26/19 05:34 Eos % (Auto) Not Reportable 09/26/19 05:34 Baso % (Auto) Not Reportable 09/26/19 05:34 Absolute Neuts (auto) Not Reportable 09/26/19 05:34 Absolute Lymphs (auto) Not Reportable 09/26/19 05:34 Absolute Monos (auto) Not Reportable 09/26/19 05:34 Absolute Eos (auto) Not Reportable 09/26/19 05:34 Absolute Basos (auto) Not Reportable 09/26/19 05:34 Total Counted 100 09/26/19 05:34 Seg Neutrophils % Not Reportable 09/26/19 05:34 Seg Neuts % (Manual) 96 % (42-78) H 09/26/19 05:34 Lymphocytes % (Manual) 3 % (13-45) L 09/26/19 05:34 Monocytes % (Manual) 1 % (3-13) L 09/26/19 05:34 Eosinophils % (Manual) 0 % (0-6) 09/26/19 05:34 Basophils % (Manual) 0 % (0-2) 09/26/19 05:34 Abs Neuts (Manual) 12.8 10^3/uL (1.7-8.2) H 09/26/19 05:34 Abs Lymphs (Manual) 0.4 10^3/uL (0.5-4.7) L 09/26/19 05:34 Abs Monocytes (Manual) 0.1 10^3/uL (0.1-1.4) 09/26/19 05:34 Absolute Eos (Manual) 0.0 10^3/uL (0.0-0.6) 09/26/19 05:34 Abs Basophils (Manual) 0.0 10^3/uL (0.0-0.2) 09/26/19 05:34 Toxic Granulation SLIGHT 09/26/19 05:34 Platelet Comment ADEQUATE 09/26/19 05:34 Poikilocytosis SLIGHT 09/26/19 05:34 Anisocytosis SLIGHT 09/26/19 05:34 Ovalocytes 1+ 09/26/19 05:34 Sodium 140.5 mmol/L (137-145) 09/26/19 05:34 Potassium 4.0 mmol/L (3.6-5.0) 09/26/19 05:34 Chloride 106 mmol/L (98-107) 09/26/19 05:34 Carbon Dioxide 27 mmol/L (22-30) 09/26/19 05:34 Anion Gap 8 (5-19) 09/26/19 05:34 BUN 17 mg/dL (7-20) 09/26/19 05:34 Creatinine 0.63 mg/dL (0.52-1.25) 09/26/19 05:34 Est GFR ( Amer) > 60 (>60) 09/26/19 05:34 Est GFR (MDRD) Non-Af > 60 (>60) 09/26/19 05:34 Glucose 128 mg/dL (75-110) H 09/26/19 05:34 Lactic Acid 1.3 mmol/L (0.7-2.1) 09/25/19 06:05 Calcium 8.6 mg/dL (8.4-10.2) 09/26/19 05:34 Total Bilirubin 0.4 mg/dL (0.2-1.3) 09/25/19 06:07 Direct Bilirubin 0.3 mg/dL (0.0-0.4) 09/25/19 06:07 Neonat Total Bilirubin Not Reportable 09/25/19 06:07 Neonat Direct Bilirubin Not Reportable 09/25/19 06:07 Neonat Indirect Bili Not Reportable 09/25/19 06:07 AST 22 U/L (14-36) 09/25/19 06:07 ALT 16 U/L (<35) 09/25/19 06:07 Alkaline Phosphatase 115 U/L (38-126) 09/25/19 06:07 Creatine Kinase 43 U/L (30-135) 09/25/19 06:07 CK-MB (CK-2) 1.02 ng/mL (<4.55) 09/25/19 06:07 Troponin I < 0.012 ng/mL 09/25/19 06:07 NT-Pro-B Natriuret Pep 314 pg/mL (<125) H 09/25/19 06:07 Total Protein 6.5 g/dL (6.3-8.2) 09/25/19 06:07 Albumin 3.6 g/dL (3.5-5.0) 09/25/19 06:07 Urine Color YELLOW 09/25/19 07:50 Urine Appearance SLIGHTLY-CLOUDY 09/25/19 07:50 Urine pH 5.0 (5.0-9.0) 09/25/19 07:50 Ur Specific [place] 1.020 09/25/19 07:50 Urine Protein 30 mg/dL (NEGATIVE) H 09/25/19 07:50 Urine Glucose (UA) NEGATIVE mg/dL (NEGATIVE) 09/25/19 07:50 Urine Ketones NEGATIVE mg/dL (NEGATIVE) 09/25/19 07:50 Urine Blood NEGATIVE (NEGATIVE) 09/25/19 07:50 Urine Nitrite NEGATIVE (NEGATIVE) 09/25/19 07:50 Urine Bilirubin NEGATIVE (NEGATIVE) 09/25/19 07:50 Urine Urobilinogen NEGATIVE mg/dL (<2.0) 09/25/19 07:50 Ur Leukocyte Esterase NEGATIVE (NEGATIVE) 09/25/19 07:50 Urine WBC (Auto) 5 /HPF 09/25/19 07:50 Urine RBC (Auto) 1 /HPF 09/25/19 07:50 U Hyaline Cast (Auto) 4 /LPF 09/25/19 07:50 Squamous Epi Cells Auto 4 /HPF 09/25/19 07:50 Urine Mucus (Auto) RARE /LPF 09/25/19 07:50 Urine Ascorbic Acid NEGATIVE (NEGATIVE) 09/25/19 07:50 Urine Opiates Screen UNCONFIRMED POSITIVE 09/25/19 07:50 Urine Methadone Screen UNCONFIRMED POSITIVE 09/25/19 07:50 Ur Barbiturates Screen NEGATIVE 09/25/19 07:50 Ur Phencyclidine Scrn NEGATIVE 09/25/19 07:50 Ur Amphetamines Screen NEGATIVE 09/25/19 07:50 U Benzodiazepines Scrn NEGATIVE 09/25/19 07:50 Urine Cocaine Screen NEGATIVE 09/25/19 07:50 U Marijuana (THC) Screen UNCONFIRMED POSITIVE 09/25/19 07:50 Serum Alcohol < 10 mg/dL (NONE DETECTED) 09/25/19 06:07 Influenza A (Rapid) NEGATIVE (NEGATIVE) 09/25/19 10:21 Influenza B (Rapid) NEGATIVE (NEGATIVE) 09/25/19 10:21 09/25/19 06:07 CK-MB (CK-2) 1.02 Troponin I < 0.012 NT-Pro-B Natriuret Pep 314 H Impressions: Chest CT 09/25/19 00:00 IMPRESSION: No acute infiltrates 11 mm nodule right lung base Chest X-Ray 09/25/19 06:05 IMPRESSION: No acute disease. Chest X-Ray 09/25/19 09:08 IMPRESSION: COPD No acute findings Scarring right lung base Chest X-Ray 09/25/19 09:58 IMPRESSION: Trace fluid in the posterior costophrenic sulci Plan Plan of Treatment: Patient is discharged to home in stable codition. She is instructed to follow-up with primary care provider within 1 week and the [facility] as scheduled. Do not smoke, drink alcohol, or use recreational drugs. Take medications as prescribed. Avoid known respiratory triggers (smoke, dust, pollen, pet dander) Return to the emergency department as needed for concerning symptoms Time Spent: Greater than 30 Minutes Stroke Is this a Stroke Patient?: No Acute Heart Failure - Is this a Heart Failure Patient?: No
[2019-09-26 15:35] VITALS: BP 120/68
[2019-09-26] MEDS ORDERED: PANTOPRAZOLE SODIUM 20 MG TABLET.DR PO SCH (18:00)
[2019-09-27] MEDS ORDERED: LEVOTHYROXINE SODIUM 0.112 MG TABLET PO SCH (06:00)
== END 2019-09-26 16:22 | disposition home or self-care (01) ==
LOC: ER 05:46 → EH 12:16 → INTOOBSV 12:16 → 4S 20:00
PROVIDERS: ADMIT Internal Medicine; ATTEND Internal Medicine
DX: J44.1 Chronic obstructive pulmonary disease with (acute) exacerbation (principal); T40.1X1A Poisoning by heroin, accidental (unintentional), initial encounter; J96.01 Acute respiratory failure with hypoxia; D72.829 Elevated white blood cell count, unspecified; F17.210 Nicotine dependence, cigarettes, uncomplicated; R00.0 Tachycardia, unspecified; R78.89 Finding of other specified substances, not normally found in blood; Z79.899 Other long term (current) drug therapy; Z85.72 Personal history of non-Hodgkin lymphomas
CPT/HCPCS: 93005; 94640 ×4; 99285; 96361; 96375; 96365; 36415 ×2; 87040; 82553; 80307 ×2; 82550; 83605; 85025 ×2; 80048; 80053; 81001; 84484; 87804; 83880; 71045; 71260; 94799; 93010; 94667; G0378 ×3; J1644 ×2; J3490 ×6; J2920 ×2; J2930; J2310; J7030; J7120; J0456; J0696; J7620 ×2

== ENCOUNTER → 2019-10-25 | Outpatient (CLI) | payer MEDICAID ==
--- NOTE | 2019-10-25 09:15 | ST Modified Barium Swallow ---
Recommendation - Recommendations Recommendations: Recommend outpatient dysphagia therapy to address functional deficits in swallowing. May include pharyngeal exercises, myofascial release, and NMES as appropriate. Medical Diagnoses - Medical Diagnoses Medical Diagnosis Description & ICD-10 Code(s): Dysphagia, R13.14 Other Medical Diagnoses/Co-Morbidities: Lymphoma s/p radical neck dissection and radiation, chronic bronchitis, COPD, reflux, tobacco use, prior PEG tube. ST Modified Barium Swallow - General Date: 10/25/19 Referring Physician: Dr. Uriostegui Risks/Precautions: Aspiration Date of Onset: 08/21/19 - approximate onset date Reason for Referral: difficulty swallowing - History History obtained from: Patient -: Medical - Patient reports that she started noticing difficulty swallowing in August, before [place]. States that she "can't swallow solid foods". She reports modifying her diet to primarily soft or pureed textures, reports no difficulty with liquids. She does report weight loss, and sensation of solid foods sticking in her throat. Patient did have pneumonia in August 2019, and chronic bronchitis due to tobacco use. She states she foods get stuck she will at times cough the food back up. She also reports taking pills with apple sauce to ensure they "go down ok". Patient does have significant history of head and neck cancer in 2007, specifically reports having multiple lymphnodes in the throat removed, as well as thyroid, and radiation and chemotherapy. Patient had a PEG tube placed while undergoing cancer treatment, but does not have now. Per EMR: patient did have a MBSS performed in 2014, at that time pharyngeal phase dysphagia was seen with residuals of solids and poor clearance with liquid wash. Penetration of thin liquids were also seen. Dysphagia treatment was recommended at that time, however, it does not appear that the patient attended any. Medications: per patient report: nexium, thyroid medication Allergies: No known allergies. - Functional Status Prior Functional Status: INDEPENDENT: feeding Current Functional Limitations: feeding - weight loss, difficulty swallowing - Subjective Patient/caregiver goal(s): safe swallow, r/o aspiration Cognitive-Linguistic Function: WNL Speech Intelligibility: WNL Current Nutritional Means: PO Current PO diet: Pureed, Soft - and thin liquids Current symptoms: Weight loss, c/o Globus sensation Pain: Patient reports, 0/5 - Objective Assessment: Upright, Left Lateral - Food Trials Used Food trials used: Thin liquids, Pureed, Regular The patient: Was Able to Self Feed - Oral-Motor Skills Dentition: Partial Velo-pharyngeal function: Other - asymmetrical soft palate/uvula seen Laryngeal Function: Volitional Cough, Volitional Swallow, hoarse - Assessment Oral prep: Normal Labial closure: Adequate Leakage: None Mastication: Adequate Oral stage: Normal for this Procedure - Pharyngeal Stage Initiation of Pharyngeal Stage Reflex: Normal Decreased laryngeal elevation: Yes - mild Reduced Velopharyngeal Closure: no Reduced pressure generation: Yes reduced tongue-based retraction: Yes Pre-swallow pooling in valleculae: Mild Pre-Swallow pooling in pyriforms: None Reduced Thyro-Hyoid approximation: Yes Reduced epiglottic excursion: Yes Reduced pharyngeal peristalsis/contraction: Yes Multiple Swallows with: Ineffective Clearance - only partial clearance with liquid wash Post-swallow residulas vallecular: Significant - with solid trials Post-Swallow residuals in pyriforms: Mild - with all textures Post-Swallow Residuals: throughout pharynx Reduced Cricopharyngeal opening: Yes - Fall Risk Assessment Medications/Conditions that increase fall risks include: Antidepressants, sedatives, anti-arrhythmic, diuretic, benzodiazipenes, neuroleptics. BP regulation problems, cardiac problems, balance or gait deficits, neurological problems. Is patient considered at risk for falls: no Fall Risk Actions Taken: No action needed - Behavioral Observations During evaluation process patient: was cooperative, able to answer questions, provided medical history - Treatment / Educational Needs: Treatment/Education Needs: Treatment consisted of patient education on the role of the Speech Pathologist. Patient's plan of care and golas were communicated as well as scheduling and attendance policies. Recommendations for initial home program were shared. Patient demonstrated understanding and verbalized agreement. - Impression/Summary Laryngeal Penetration: Yes, Flash - with thin liquids Tracheal Aspiration: no Patient presents with: Pharyngeal stage dysph. - moderate to severe Risk of Aspiration: Moderate Risk of nutritional compromise: Moderate Evaluation and Findings: Patient presents with moderate to severe pharyngeal phase dysphagia. This is characterized by reduced tongue base retraction, reduced pharyngeal constriction, reduced epiglottic inversion, and mildly reduced laryngeal elevation. This is resulting in residue of solid textures, predominately in valleculae. Residue required multiple sips of liquid to clear. No aspiration seen, however, patient is at risk of aspiration due to pharyngeal residue. Of note, the patient had similar findings with MBSS completed 09/26/2014. Deficits seen are not uncommon in patients with a history of head and neck cancer, especially post surgical and radiation interventions. - Recommendations Solid diet recommendations: Pureed Liquid Diet Modification: Thin Strict aspiration precautions: Yes Pt/Family education and followup with MD: Yes Dysphagia therapy with CODE OFFICIAL: yes Recommended techniques: Fully Upright During Meal, Small Bites and Sips, Alternate Bites/Sips Information, Precautions and Recommendations: Patient (Written), Patient (Verbal) - Time Total Time: 30 - Plan of Care Strategies to optimize patient understanding include:: ongoing assessment of educational needs, implementation of educational strategies, and re-education. - - -: Thank you for the opportunity to work with this patient and his/her family. Should you have any questions about this patient's plan or progress, I can be reached at [phone].
--- NOTE | 2019-10-25 14:24 | RADIOLOGY REPORT (SQ) ---
EXAM DESCRIPTION: FEI SWALLOW COMPLETED DATE/TIME: 10/25/2019 9:31 am REASON FOR STUDY: DYSPHAGIA, PHARYNGOESOPHAGEAL PHASE R13.14 DYSPHAGIA, PHARYNGOESOPHAGEAL PHASE h ead and neck cancer COMPARISON: 09/26/2014 TECHNIQUE: Videofluoroscopic swallowing examination was performed in conjunction with speech patholo gy. Videofluoroscopic imaging was obtained and reviewed and these are the findings: RADIATION DOSE: 2 minutes 22 seconds of fluoroscopy was used. images saved to PACS. LIMITATIONS: None FINDINGS: The patient was brought into the fluoro room and placed upright on a modified barium swall ow chair. The patient was then given multiple consistencies mixed with barium to swallow under live fluoroscopic video guidance. According to the Speech Pathologist there was deep laryngeal penetratio n without aspiration with the thin liquids only. Post swallow residual contrast within the vallecular . IMPRESSION: DEEP LARYNGEAL PENETRATION WITH THIN LIQUIDS. NO ASPIRATION SEEN. PLEASE SEE SPEECH PAT HOLOGIST REPORT FOR OTHER FINDINGS AND RECOMMENDATIONS. COMMENT: Quality ID [id number]: Final reports for procedures using fluoroscopy that document radiation exp osure indices, or exposure time and number of fluorographic images (if radiation exposure indices are not available) TECHNICAL DOCUMENTATION: JOB ID: [id number] [email or web address]- All Rights Reserved Reading location - IP/workstation name: [id number]
== END ==
LOC: RAD 08:19
PROVIDERS: ATTEND Otolaryngology
DX: R13.14 Dysphagia, pharyngoesophageal phase (principal); Z85.72 Personal history of non-Hodgkin lymphomas; K21.9 Gastro-esophageal reflux disease without esophagitis; Z72.0 Tobacco use; J44.9 Chronic obstructive pulmonary disease, unspecified
CPT/HCPCS: 74230

== ENCOUNTER → 2019-11-04 | Outpatient (CLI) | payer MEDICAID ==
--- NOTE | 2019-11-04 16:39 | RADIOLOGY REPORT (SQ) ---
EXAM DESCRIPTION: CHEST PA/LATERAL COMPLETED DATE/TIME: 11/04/2019 4:27 pm REASON FOR STUDY: COUGH COMPARISON: Chest radiographs 09/25/2019 EXAM PARAMETERS: NUMBER OF VIEWS: two views TECHNIQUE: Digital Frontal and Lateral radiographic views of the chest acquired. RADIATION DOSE: NA LIMITATIONS: none FINDINGS: LUNGS AND PLEURA: No opacities, masses or pneumothorax. No pleural effusion. MEDIASTINUM AND HILAR STRUCTURES: No masses or contour abnormalities. HEART AND VASCULAR STRUCTURES: Calcified atherosclerotic changes of the aortic arch. Heart normal si ze. No evidence for failure. BONES: No acute findings. HARDWARE: None in the chest. OTHER: Postsurgical changes so the right lower neck. IMPRESSION: NO SIGNIFICANT RADIOGRAPHIC FINDING IN THE CHEST. TECHNICAL DOCUMENTATION: JOB ID: [id number] 2010 [employer]- All Rights Reserved Reading location - IP/workstation name: [email or web address]
== END ==
LOC: RAD 16:15
PROVIDERS: ATTEND Nurse Practitioner Family
DX: R05 Cough (principal)
CPT/HCPCS: 71046

== ENCOUNTER 2019-12-04 02:35 | Emergency (ER) | payer MEDICAID ==
--- NOTE | 2019-12-04 03:03 | ER Document Report ---
Entered by NEERAJ FALLON SCRIBE 12/04/19 0258 Acting as scribe for:TY MARIE IV, MD ED Substance Abuse / Acc. OD - General Stated Complaint: POSSIBLE OVERDOSE Primary Care Provider: TRINA FLOYD FNP [Primary Care Provider] - Follow up as needed Mode of Arrival: Medic Information source: Patient, Emergency Med Personnel Notes: This 54 year old female patient with a history of COPD, asthma, bronchitis, pneumonia, and substance abuse who was brought in by EMS presents to the ED today with complaints of a possible overdose and unresponsiveness that occurred prior to arrival. EMS reports that the patient's family called 911 because the patient was unresponsive. EMS states that the family was advised to start CPR and that upon their arrival, the patient was still unconscious. EMS reports that 16 mg Narcan was administered by SAUMYA prior to their arrival and that they did n ot continue CPR, but rather assisted with ventilations until the patient became responsive. EMS states that the patient complains of chest pain, abdominal pain, and dyspnea more than usual. EMS reports that the patient was uncooperative and refusing treatment. EMS states that the patient is a known heroin user and her method of use is snorting. EMS notes that the patient denies any medications or allergies. TRAVEL OUTSIDE OF THE [place] IN LAST 30 DAYS: No - Related Data Allergies/Adverse Reactions: No Known Allergies Allergy (Verified 09/02/19 12:13) Past Medical History - General Information source: Patient, Emergency Med Personnel - Social History Smoking Status: Current Every Day Smoker Cigarette use (# per day): Yes Chew tobacco use (# tins/day): No Smoking Education Provided: No Drug Abuse: Heroin Family History: Reviewed & Not Pertinent Patient has suicidal ideation: No Patient has homicidal ideation: No Pulmonary Medical History: Reports: Hx Asthma - MODERATE, Hx Bronchitis, Hx COPD, Hx Pneumonia Endocrine Medical History: Reports: Hx Diabetes Mellitus Type 2 Malignancy Medical History: Reports: Hx Lymphoma GI Medical History: Reports: Hx Ulcer - STOMACH ,YEARS AGO Past Surgical History: Reports: Hx Abdominal Surgery - Peg tube, Hx Hysterectomy, Hx Tonsillectomy, Hx Vascular Surgery - Right neck lymph nodes - Immunizations Immunizations up to date: Yes Hx Diphtheria, Pertussis, Tetanus Vaccination: Yes Hx Pneumococcal Vaccination: 09/21/10 Review of Systems - Review of Systems Constitutional: See HPI, Other - Possible overdose EENT: No symptoms reported Cardiovascular: See HPI, Chest pain, Dyspnea Respiratory: No symptoms reported Gastrointestinal: See HPI, Abdominal pain Genitourinary: No symptoms reported Female Genitourinary: No symptoms reported Musculoskeletal: No symptoms reported Skin: No symptoms reported Hematologic/Lymphatic: No symptoms reported Neurological/Psychological: See HPI, Other - Unresponsiveness -: Yes All other systems reviewed and negative Physical Exam - Vital signs Vitals: Resp Pulse Ox 18 100 12/04/19 02:36 12/04/19 02:36 - General General appearance: Combative, Other - Frail appearing. Uncooperative with exam. - HEENT Head: Normocephalic, Atraumatic Eyes: Normal Pupils: PERRL - Respiratory Respiratory status: No respiratory distress Chest status: Other - No crepitus or step-off with palpation. Breath sounds: Rhonchi - Bilaterally Chest palpation: Normal - Cardiovascular Rhythm: Regular Heart sounds: Normal auscultation Murmur: No - Abdominal Inspection: Normal Distension: No distension Bowel sounds: Normal Tenderness: Nontender - Abdomen soft Organomegaly: No organomegaly - Back Back: Normal, Nontender - Extremities General upper extremity: Normal inspection General lower extremity: Normal inspection - Neurological Neuro grossly intact: Yes Speech: Other - Intelligible - Psychological Associated symptoms: Combative, Uncooperative - Skin Skin Temperature: Warm Skin Moisture: Dry Skin Color: Normal Course - Re-evaluation Re-evalutation: 12/04/19 05:00 Results of ED MSE discussed with patient. Emergency signs and symptoms, reasons to return to the ER discussed with patient. 12/04/19 05:03 Patient is tolerating p.o. fluids - Vital Signs Vital signs: Temp Pulse Resp BP Pulse Ox 98.7 F 81 21 H 157/93 H 100 12/04/19 03:02 12/04/19 03:02 12/04/19 04:01 12/04/19 04:01 12/04/19 04:01 - Laboratory Result Diagrams: 12/04/19 02:45 12/04/19 02:45 Laboratory results interpreted by me: 12/04/19 12/04/19 12/04/19 02:45 02:45 03:15 RDW 15.4 H Glucose 74 L Ur Leukocyte Esterase MODERATE H - Diagnostic Test Radiology reviewed: Reports reviewed - EKG Interpretation by Me Additional EKG results interpreted by me: 12/04/19 05:01 EKG obtained 12/04/2019 at 0242 hrs. was interpreted by this MD. Findings: Sinus rhythm, rate rate 72, normal axis, P waves proceed QRS complexes, QRS complexes appear to be narrow, there are no obviously visible patterns of ST segment elevation or depression present to suggest acute myocardial ischemia or infarction. Impression normal sinus rhythm with nonspecific ST segments. Discharge - Discharge Clinical Impression: Substance abuse Condition: Good Disposition: HOME, SELF-CARE Additional Instructions: Return to the Emergency Department without delay if any worse. HOME CARE INSTRUCTIONS & INFORMATION: Thank you for choosing us for your medical needs. We hope you're satisfied with the care you received. After you leave, you must properly care for your problem and, at the same time, observe its progress. Any condition can change. Some illnesses can change rapidly over hours or days. If your condition worsens, return to the Emergency Department or see your physician promptly. ABOUT YOUR X-RAYS AND EKG'S: If you had an EKG or X-rays taken, they have been read by the Emergency Physician. The X-rays and EKG's will also be read by a Radiologist or Quality Assurance Supervisor within 24 hours. If discrepancies are noted, you will be notified by telephone. Please be certain the ED has a correct telephone number & address where you can be reached. Also, realize that some fractures or abnormalities do not show up on initial X-rays. If your symptoms continue, see your physician. ABOUT YOUR LABORATORY TEST: If you had laboratory tests, the results have been reviewed by the Emergency Physician. Some test results (for example cultures) may not be available for several days. You will be contacted if any test result shows you need additional treatment. Please be certain the ED has a correct telephone number and address where you can be reached. ABOUT YOUR MEDICATIONS: You will receive instructions on how to take your medicine on the prescription label you receive. Additional information may be provided by the Pharmacy. If you have questions afterwards, call the ED for clarification or further instructions. Some prescribed medications may cause dr tatumsincande. Do not perform tasks such as driving a car or operating machinery without consulting your Pharmacist. If you feel you need a refill of pain medication, your condition will need re-evaluation. Please do not call for a refill of any medication. ABOUT YOUR SIGNATURE: Signature of this document acknowledges to followin. Understanding that you received emergency treatment and that you may be released before al medical problems are known or treated. Please be certain the ED has a correct phone number & address where you can be reached. 2. Acknowledgement that you will arrange for follow-up care as recommended. 3. Authorization for the Emergency Physician to provide information to your follow-up Physician in order to maximize your care. AT ANY TIME, IF YOUR SYMPTOMS CHANGE SIGNIFICANTLY OR WORSEN OR YOU DEVELOP NEW SYMPTOMS, RETURN TO THE EMERGENCY DEPARTMENT IMMEDIATELY FOR RE-EVALUATION. OUR GOAL IS TO PROVIDE EXCELLENT MEDICAL CARE! WE HOPE THAT WE HAVE MET YOUR EXPECTATIONS DURING YOUR EMERGENCY DEPARTMENT VISIT AND THAT YOU FEEL YOU HAVE RECEIVED EXCELLENT CARE! Referrals: TRINA FLOYD, CONSERVATION ENFORCEMENT OFFICER [Primary Care Provider] - Follow up as needed I personally performed the services described in the documentation, reviewed and edited the documentation which was dictated to the scribe in my presence, and it accurately records my words and actions.
[2019-12-04 03:22] LABS: ABSOLUTE BASOPHILS # (AUTO) 0.1 10^3/uL (0.0-0.2); ABSOLUTE EOSINOPHILS # (AUTO) 0.1 10^3/uL (0.0-0.6); ABSOLUTE LYMPHOCYTES (AUTO) 1.3 10^3/uL (0.5-4.7); ABSOLUTE MONOCYTES (AUTO) 0.8 10^3/uL (0.1-1.4); ABSOLUTE NEUT (AUTO) 7.6 10^3/uL (1.7-8.2); BASOPHILS % (AUTO) 0.7 % (0-2); EOSINOPHILS % (AUTO) 1.3 % (0-6); HEMATOCRIT 40.7 % (36.0-47.0); HEMOGLOBIN 13.4 g/dL (12.0-15.5); LYMPHOCYTES % (AUTO) 13.4 % (13-45); MEAN CORPUSCULAR HEMOGLOBIN 30.2 pg (27.0-33.4); MEAN CORPUSCULAR HGB CONC 32.8 g/dL (32.0-36.0); MEAN CORPUSCULAR VOLUME 92 fl (80-97); MONOCYTES % (AUTO) 8.5 % (3-13); PLATELET COUNT 280 10^3/uL (150-450); RED BLOOD COUNT 4.43 10^6/uL (3.72-5.28); RED CELL DISTRIBUTION WIDTH 15.4 % (11.5-14.0); SEGMENTED NEUTROPHILS % (AUTO) 76.1 % (42-78); TOTAL CELLS COUNTED % (AUTO) 100 %; WHITE BLOOD COUNT 9.9 10^3/uL (4.0-10.5)
--- NOTE | 2019-12-04 03:28 | RADIOLOGY REPORT (SQ) ---
Chest one view on 12/04/2019 at 2:57 AM CLINICAL INDICATION: Chest pain after CPR COMPARISON: Chest x-ray from 11/04/[address] from 09/25/2019 FINDINGS: There is some gaseous distention of the stomach in the upper abdomen. Multiple wires are noted projecting over the chest. There is a possible enlarging nodule in the medial right lower lung. Consider follow-up chest CT. Lungs are otherwise clear. Cardiac, hilar and mediastinal contours are within normal limits. Pulmonary vascularity is within normal limits. No acute bony abnormality is noted. IMPRESSION: Possible enlarging nodule in the medial right lower lung. Consider follow-up chest CT.
[2019-12-04 03:32] LABS: APPEARANCE,URINE CLOUDY; BILIRUBIN,URINE NEGATIVE (NEGATIVE); COLOR,URINE YELLOW; GLUCOSE, URINE NEGATIVE (NEGATIVE); KETONES,URINE NEGATIVE (NEGATIVE); LEUKOCYTE ESTERASE,URINE MODERATE (NEGATIVE); NITRITE,URINE NEGATIVE (NEGATIVE); PROTEIN,URINE NEGATIVE (NEGATIVE); URINE SPECIFIC GRAVITY 1.018; UROBILINOGEN,URINE NEGATIVE mg/dL (<2.0)
[2019-12-04 03:37] LABS: ALBUMIN 4.7 g/dL (3.5-5.0); ALKALINE PHOSPHATASE 99 U/L (38-126); ANION GAP 6 (5-19); ASPARTATE AMINO TRANSFERASE 34 U/L (14-36); BILIRUBIN,DIRECT 0.1 mg/dL (0.0-0.4); BILIRUBIN,TOTAL 0.8 mg/dL (0.2-1.3); BLOOD UREA NITROGEN 20 mg/dL (7-20); CALCIUM 9.4 mg/dL (8.4-10.2); CARBON DIOXIDE 28 mmol/L (22-30); CHLORIDE 104 mmol/L (98-107); GLUCOSE 74 mg/dL (75-110); POTASSIUM 4.3 mmol/L (3.6-5.0); TOTAL PROTEIN 7.4 g/dL (6.3-8.2)
[2019-12-04 03:47] LABS: URINE BARBITURATES SCREEN NEGATIVE; URINE COCAINE SCREEN NEGATIVE; URINE MARIJUANA (THC) SCREEN NEGATIVE; URINE PHENCYCLIDINE SCREEN NEGATIVE
[2019-12-04 03:48] LABS: URINE AMPHETAMINES SCREEN UNCONFIRMED POSITIVE; URINE BENZODIAZEPINES SCREEN UNCONFIRMED POSITIVE; URINE METHADONE SCREEN UNCONFIRMED POSITIVE
[2019-12-04 05:17] VITALS: BP 130/93
--- NOTE | 2019-12-05 00:29 | EKG REPORT ---
SEVERITY:- ABNORMAL ECG - SINUS RHYTHM PROBABLE LEFT VENTRICULAR HYPERTROPHY : Confirmed by: Uriel Canales 05-Dec-2019 00:28:01
== END 2019-12-04 05:18 | disposition home or self-care (01) ==
LOC: ER 02:35
DX: F11.10 Opioid abuse, uncomplicated (principal); R40.4 Transient alteration of awareness; R07.9 Chest pain, unspecified; R06.00 Dyspnea, unspecified; F17.210 Nicotine dependence, cigarettes, uncomplicated; E11.9 Type 2 diabetes mellitus without complications; Z90.710 Acquired absence of both cervix and uterus
CPT/HCPCS: 36415; 71045; 80053; 80307; 81001; 84484; 85025; 93005; 93010; 99284

== ENCOUNTER 2019-12-15 05:41 | Day surgery (SDC) | payer MEDICAID ==
[~2019-12-15 05:41] MED LIST changes: -ACETAMINOPHEN 325 MG TABLET PO PRN; +CEFAZOLIN 1 GM/D5W RTU 1 GM/50 ML RTUPB IV ONE; +CEFAZOLIN 1 GM/D5W RTU 1 GM/50 ML RTUPB IV PRN; +DEXTROSE 5%-LACTATED RINGERS 1,000 ML IV PRN; -LACTATED RINGERS 1000 ML IV PRN; -LIDOCAINE 0.5% INJ-PF (5 MG/ML) 50 ML SDV SUBCUT PRN
[2019-12-15] MEDS ORDERED: BUPIVACAINE HCL 0.25 % INJ/PF (2.5 MG/1 ML) 30 ML VIAL ONE (06:58)
[2019-12-15] MEDS ORDERED: MIDAZOLAM 2 MG/2 ML INJ ONE (07:02)
[2019-12-15] MEDS ORDERED: PROPOFOL INJ 200 MG/20 ML VIAL IV ONE (07:02)
[2019-12-15] MEDS ORDERED: FENTANYL CITRATE INJ/PF 100 MCG/2 ML AMPUL ONE ×2 (07:02→08:23)
--- NOTE | 2019-12-15 08:18 | Discharge Summary ---
Discharge Summary (SDC) - Discharge Final Diagnosis: Dysphasia Date of Surgery: 12/15/19 Discharge Date: 12/15/19 Condition: Good Forms: ASU Anesthesia D/C Instruction, Discharge POC-Surgical Service Treatment or Instructions: Patient will be discharged home to care of her significant other; patient family with PEG tube management and use. Patient can follow-up with [facility] on a as needed basis. No prescriptions provided. Referrals: RUDI RAPHAEL MD [ACTIVE STAFF] - Discharge Diet: Other (Comments) - May use feeding tube Discharge Activity: Activity As Tolerated Home Care Assistance: None Needed Report the Following to Your Physician Immediately: Shortness of Breath, Increase in Pain, Fever over 101 Degrees
--- NOTE | 2019-12-15 08:26 | Operative Report ---
Operative Report DATE OF SURGERY: 12/15/19 PREOPERATIVE DIAGNOSIS: Dysphasia; history of extensive neck surgery; COPD POSTOPERATIVE DIAGNOSIS: Same OPERATION: 1. Esophagogastroduodenoscopy. 2. Insertion of 20 Georgian pull out percutaneous endoscopic gastrostomy tube SURGEON: RUDI RAPHAEL ANESTHESIA: LMAC TISSUE REMOVED OR ALTERED: none COMPLICATIONS: none ESTIMATED BLOOD LOSS: scant INTRAOPERATIVE FINDINGS: See below PROCEDURE: The patient was taken to the preop holding area to the main operating where LMAC anesthesia was induced. Patient was placed in semirecumbent position. Abdomen exposed Surgical plan and surgical timeout were conducted. The abdomen was prepped with Betadine. In the left upper quadrant was a site of chronic drainage distant with the previous PEG tube basement. We anesthetized the exit site, and opened it up slightly with hemostats, however no entry was made into the stomach. We now inserted the flexible adult upper endoscope through the oropharynx without difficulty, down the esophagus through the stomach into the first and second portion of the duodenum. There was no evidence of pathology. There was no bleeding stricture or polyp. There was mild distal gastritis. No ulcer. There was a slightly excoriated area mid anterior stomach wall consistent with the previous PEG site placement. We now placed the 18 Jelco through the anterior abdominal wall at the previous PEG tube site. The wire was threaded through the Jelco, and snared with the endoscope. The scope and wire were brought out through the patient's oropharynx, the 20 Georgian PEG tube slid over the wire, and the wire and PEG tube brought out through the anterior abdominal wall. The bolster was secured with the workings at 3 cm from the bolster to the skin level. The bolster was secured to the skin at 4 sites with 2-0 Prolene suture. Clamp and adapter applied. Repeat upper endoscopy was performed without difficulty. This confirmed satisfactory placement of the PEG tube without bleeding. Photo taken. The scope was withdrawn to the patient's oropharynx. She tolerated the procedure well. She was taken to recovery room in stable condition.
[2019-12-15 10:52] VITALS: BP 139/83
== END 2019-12-15 09:50 | disposition home or self-care (01) ==
LOC: OROUT 05:41
PROVIDERS: ATTEND Surgery
DX: R13.10 Dysphagia, unspecified (principal); E89.0 Postprocedural hypothyroidism; R63.0 Anorexia; J44.9 Chronic obstructive pulmonary disease, unspecified; K21.9 Gastro-esophageal reflux disease without esophagitis; Z79.899 Other long term (current) drug therapy; Z85.850 Personal history of malignant neoplasm of thyroid; F17.210 Nicotine dependence, cigarettes, uncomplicated; R06.00 Dyspnea, unspecified; Z85.819 Personal history of malignant neoplasm of unspecified site of lip, oral cavity, and pharynx
CPT/HCPCS: 43246; 00731; J2250; J0690; J3010; J2704; 731

== ENCOUNTER → 2020-01-03 | Outpatient (CLI) | payer MEDICAID ==
--- NOTE | 2020-01-03 14:26 | RADIOLOGY REPORT (SQ) ---
EXAM DESCRIPTION: PET CT SKULL/THIGH IMAGES COMPLETED DATE/TIME: 01/03/2020 1:54 pm REASON FOR STUDY: R91.1 SOLITARY PULMONARY NODULE, R91.8 OTHER NONSPECIFIC ABNORMAL FINDING O R91.1 SOLITARY PULMONARY NODULE R91.8 OTHER NONSPECIFIC ABNORMAL FINDING OF LUNG FIELD COMPARISON: CT chest dated 09/25/2019, prior PET-CT dated 11/12/2012 RADIONUCLIDE AND DOSE: 9.74 mCi F18 FDG The route of agent administration: Intravenous FASTING BLOOD SUGAR: 89 mg/dl CONTRAST TYPE AND DOSE: No CT contrast given. TECHNIQUE: Blood glucose level was verified. Above dose of FDG was injected intravenously. 2-D seg mented attenuation correction images were obtained from the base of the skull to the midthighs. Nonc ontrast CT images were obtained for attenuation correction and fusion with emission images. CT image s were performed without oral or intravenous contrast and are not sensitive for parenchymal lesions. A series of overlapping emission PET images were obtained. Images reviewed and manipulated at [facility] work station by the radiologist. Images stored on PACS. LIMITATIONS: None. FINDINGS: HEAD AND NECK: No areas of abnormal metabolic activity in the soft tissues of the head and neck. CHEST: No areas of abnormal metabolic activity in the chest. ABDOMEN AND PELVIS: No areas of abnormal metabolic activity in the abdomen or pelvis. Expected physi ologic activity is present in the genitourinary system and bowel. PROXIMAL LOWER EXTREMITIES: No areas of abnormal metabolic activity in the soft tissues of the lower extremities. BONES: Multiple areas of abnormal uptake within ribs. CT images demonstrate corresponding rib fractu res bilaterally these are new from prior chest CT. ADDITIONAL CT FINDINGS: No additional significant findings on the noncontrast CT images. OTHER: No other significant findings. IMPRESSION: Several areas uptake in the right and left anterolateral ribs. Healing fractures are id entified on CT images. No evidence of metastatic disease. The pulmonary nodule described in September has resolved. TECHNICAL DOCUMENTATION: JOB ID: [id number] 2010 [employer]- All Rights Reserved Reading location - IP/workstation name: [email or web address]
== END ==
LOC: RAD 09:48
PROVIDERS: ATTEND Registered Nurse
DX: R91.1 Solitary pulmonary nodule (principal); R91.8 Other nonspecific abnormal finding of lung field
CPT/HCPCS: 78815; A9552

== ENCOUNTER → 2020-01-16 | Outpatient (CLI) | payer MEDICARE, MEDICAID ==
[2020-01-16 13:10] LABS: ABSOLUTE BASOPHILS # (AUTO) 0.1 10^3/uL (0.0-0.2); ABSOLUTE EOSINOPHILS # (AUTO) 0.1 10^3/uL (0.0-0.6); ABSOLUTE MONOCYTES (AUTO) 0.6 10^3/uL (0.1-1.4); ABSOLUTE NEUT (AUTO) 2.6 10^3/uL (1.7-8.2); BASOPHILS % (AUTO) 2.2 % (0-2); EOSINOPHILS % (AUTO) 2.3 % (0-6); HEMATOCRIT 37.6 % (36.0-47.0); HEMOGLOBIN 12.9 g/dL (12.0-15.5); LYMPHOCYTES % (AUTO) 22.9 % (13-45); MEAN CORPUSCULAR HEMOGLOBIN 30.5 pg (27.0-33.4); MEAN CORPUSCULAR HGB CONC 34.3 g/dL (32.0-36.0); MEAN CORPUSCULAR VOLUME 89 fl (80-97); MONOCYTES % (AUTO) 13.6 % (3-13); PLATELET COUNT 266 10^3/uL (150-450); RED BLOOD COUNT 4.23 10^6/uL (3.72-5.28); RED CELL DISTRIBUTION WIDTH 15.4 % (11.5-14.0); TOTAL CELLS COUNTED % (AUTO) 100 %; WHITE BLOOD COUNT 4.3 10^3/uL (4.0-10.5)
[2020-01-16 13:32] LABS: ALBUMIN 4.4 g/dL (3.5-5.0); ALKALINE PHOSPHATASE 109 U/L (38-126); ANION GAP 5 (5-19); ASPARTATE AMINO TRANSFERASE 35 U/L (14-36); BILIRUBIN,DIRECT 0.1 mg/dL (0.0-0.4); BILIRUBIN,TOTAL 0.4 mg/dL (0.2-1.3); BLOOD UREA NITROGEN 28 mg/dL (7-20); CALCIUM 8.7 mg/dL (8.4-10.2); CARBON DIOXIDE 35 mmol/L (22-30); CHLORIDE 97 mmol/L (98-107); GLUCOSE 78 mg/dL (75-110); POTASSIUM 5.1 mmol/L (3.6-5.0)
[2020-01-16 13:46] LABS: FREE T4 (FREE THYROXINE) 1.29 ng/dL (0.78-2.19)
[2020-01-16 14:00] LABS: THYROID STIMULATING HORMONE 10.2 uIU/mL (0.47-4.68)
== END ==
LOC: OD 12:18
PROVIDERS: ATTEND Nurse Practitioner Family
DX: E03.9 Hypothyroidism, unspecified (principal); R53.82 Chronic fatigue, unspecified; R62.7 Adult failure to thrive
CPT/HCPCS: 36415; 80053; 84439; 84443; 85025

== ENCOUNTER → 2020-02-24 | Outpatient (CLI) | payer MEDICARE, MEDICAID ==
--- NOTE | 2020-02-24 13:21 | RADIOLOGY REPORT (SQ) ---
EXAM DESCRIPTION: INJECT EXISTING/TUBE PLACEMENT IMAGES COMPLETED DATE/TIME: 02/24/2020 9:50 am REASON FOR STUDY: R62.7 ADULT FAILURE TO THRIVE;GASTROSTOMY STATUS R62.7 ADULT FAILURE TO THRIVE Z9 3.1 GASTROSTOMY STATUS COMPARISON: None. FLUOROSCOPY TIME: 33 seconds. 4 images submitted to PACS. TECHNIQUE: 2 separate injections of contrast (at 2007 hours and 2019 hours) were performed through t he existing gastrojejunostomy tube and fluoroscopic images of the upper abdomen were obtained. LIMITATIONS: None. FINDINGS: CONTRAST INJECTED: 30 mL TUBE POSITION: The tip of the catheter is within the gastric lumen. The injected contrast empties in to duodenum. IMPRESSION: THE GASTROSTOMY TUBE APPEARS TO BE IN SATISFACTORY POSITION. COMMENT: Quality ID [id number]: Final reports for procedures using fluoroscopy that document radiation exp osure indices, or exposure time and number of fluorographic images (if radiation exposure indices are not available) TECHNICAL DOCUMENTATION: JOB ID: [id number] 2010 [employer]- All Rights Reserved Reading location - IP/workstation name: [email or web address]
== END ==
LOC: RAD 09:21
PROVIDERS: ATTEND Surgery
DX: R62.7 Adult failure to thrive (principal); Z93.1 Gastrostomy status; Z85.850 Personal history of malignant neoplasm of thyroid
CPT/HCPCS: 49465

== ENCOUNTER 2020-04-23 10:38 | Emergency (ER) | payer MEDICARE, MEDICAID ==
[2020-04-23] MEDS ORDERED: TETRACAINE HCL 0.5% OPH SOLN 4 ML OD ONE (11:01)
--- NOTE | 2020-04-23 11:01 | ER Document Report ---
ED Medical Screen (RME) - General Chief Complaint: Eye Pain Stated Complaint: RIGHT EYE PAIN,IRRITATION Time Seen by Provider: 04/23/20 10:58 Primary Care Provider: SANDRO MALDONADO DO [Primary Care Provider] - Follow up as needed Notes: HPI: 54-year-old female presenting with right eye pain this morning I was fine last night she states that when she blinks or looks around now it feels like there is something in the eye. Complains of tearing and redness. Has not had a tetanus shot in the last 5 years PHYSICAL EXAMINATION: Limited exam in triage. Right eye does appear injected and tearing. Do not see a definitive foreign body under the upper or lower lids I have greeted and performed a rapid initial assessment of this patient. A comprehensive ED assessment and evaluation of the patient, analysis of test results and completion of medical decision making process will be conducted by an additional ED providers. TRAVEL OUTSIDE OF THE [place] IN LAST 30 DAYS: No - Related Data Allergies/Adverse Reactions: No Known Allergies Allergy (Verified 04/23/20 10:54) Home Medications: subutex Past Medical History - Social History Chew tobacco use (# tins/day): No Frequency of alcohol use: None Drug Abuse: None - Past Medical History Cardiac Medical History: Denies: Hx Coronary Artery Disease, Hx Heart Attack, Hx Hypertension Pulmonary Medical History: Reports: Hx Asthma - MODERATE, Hx Bronchitis, Hx COPD, Hx Pneumonia Neurological Medical History: Denies: Hx Cerebrovascular Accident, Hx Seizures Endocrine Medical History: Reports: Hx Diabetes Mellitus Type 2 Renal/ Medical History: Denies: Hx Peritoneal Dialysis Malignancy Medical History: Reports: Hx Lymphoma GI Medical History: Reports: Hx Ulcer - STOMACH ,YEARS AGO. Denies: Hx Hepatitis, Hx Hiatal Hernia Musculoskeltal Medical History: Denies Hx Arthritis Infectious Medical History: Denies: Hx Hepatitis Past Surgical History: Reports: Hx Abdominal Surgery - Peg tube, Hx Hysterectomy, Hx Tonsillectomy, Hx Vascular Surgery - Right neck lymph nodes. Denies: Hx Mastectomy, Hx Open Heart Surgery, Hx Pacemaker - Immunizations Immunizations up to date: Yes Hx Diphtheria, Pertussis, Tetanus Vaccination: Yes Physical Exam - Vital signs Vitals: Temp Pulse Resp BP Pulse Ox 98.2 F 83 19 99/68 L 92 04/23/20 10:46 04/23/20 10:46 04/23/20 10:46 04/23/20 10:46 04/23/20 10:46 Course - Vital Signs Vital signs: Temp Pulse Resp BP Pulse Ox 98.2 F 83 19 99/68 L 92 04/23/20 10:46 04/23/20 10:46 04/23/20 10:46 04/23/20 10:46 04/23/20 10:46 Doctor's Discharge - Discharge Referrals: SANDRO MALDONADO DO [Primary Care Provider] - Follow up as needed
--- NOTE | 2020-04-23 13:05 | ER Document Report ---
ED General - General Chief Complaint: Eye Pain Stated Complaint: RIGHT EYE PAIN,IRRITATION Time Seen by Provider: 04/23/20 10:58 Primary Care Provider: SANDRO MALDONADO DO [Primary Care Provider] - Follow up as needed TRAVEL OUTSIDE OF THE [place] IN LAST 30 DAYS: No - HPI Notes: Chief complaint: Irritation right eye History of present illness: 54-year-old female who states she wears glasses but does not use contact lenses awakened this morning with irritation of right eye. She has sensation of foreign body although she does not recall getting anything in the eye. Reports her vision is somewhat blurry in the eye. Denies drainage. No known allergies. - Related Data Allergies/Adverse Reactions: No Known Allergies Allergy (Verified 04/23/20 10:54) Home Medications: subutex Past Medical History - General Information source: Patient, [facility] Records - Social History Smoking Status: Current Every Day Smoker Chew tobacco use (# tins/day): No Frequency of alcohol use: None Drug Abuse: None Family History: Reviewed & Not Pertinent Patient has homicidal ideation: No - Past Medical History Cardiac Medical History: Denies: Hx Coronary Artery Disease, Hx Heart Attack, Hx Hypertension Pulmonary Medical History: Reports: Hx Asthma - MODERATE, Hx Bronchitis, Hx COPD, Hx Pneumonia Neurological Medical History: Denies: Hx Cerebrovascular Accident, Hx Seizures Endocrine Medical History: Reports: Hx Diabetes Mellitus Type 2 Renal/ Medical History: Denies: Hx Peritoneal Dialysis Malignancy Medical History: Reports: Hx Lymphoma GI Medical History: Reports: Hx Ulcer - STOMACH ,YEARS AGO. Denies: Hx Hepatitis, Hx Hiatal Hernia Musculoskeletal Medical History: Denies Hx Arthritis Infectious Medical History: Denies: Hx Hepatitis Past Surgical History: Reports: Hx Abdominal Surgery - Peg tube, Hx Hysterectomy, Hx Tonsillectomy, Hx Vascular Surgery - Right neck lymph nodes. Denies: Hx Mastectomy, Hx Open Heart Surgery, Hx Pacemaker - Immunizations Immunizations up to date: Yes Hx Diphtheria, Pertussis, Tetanus Vaccination: Yes Hx Pneumococcal Vaccination: 09/21/10 Review of Systems - Review of Systems Notes: Constitutional: Negative for fever. HENT: Negative for sore throat. Eyes: As per HPI. Cardiovascular: Negative for chest pain. Respiratory: Chronic cough. Gastrointestinal: Negative for abdominal pain, vomiting or diarrhea. Genitourinary: Negative for dysuria. Musculoskeletal: Negative for back pain. Skin: Negative for rash. Neurological: Negative for headaches, weakness or numbness. 10 point ROS negative except as marked above and in HPI. Physical Exam - Vital signs Vitals: Temp Pulse Resp BP Pulse Ox 98.2 F 83 19 99/68 L 92 04/23/20 10:46 04/23/20 10:46 04/23/20 10:46 04/23/20 10:46 04/23/20 10:46 - Notes Notes: GENERAL: Somewhat obese male approximately stated age appearing in no acute distress. SKIN: Good turgor no rashes. HEAD: Normocephalic atraumatic. EYES: PERRLA. EOMI. conjunctival injection right eye. NECK: Supple. No masses or thyromegaly. No adenopathy. Carotids 2+ without bruits. No JVD. BACK: Symmetrical without tenderness. CHEST: Respirations unlabored. Breath sounds clear and symmetrical. HEART: Regular rhythm. No murmur gallop or rub. ABDOMEN: Soft nontender without masses, organomegaly or rebound. Bowel sounds normally active. No bruits. EXTREMITIES: No edema. No calf tenderness. Cap refill less than 1.5 seconds. Dorsalis pedis and posterior tibial pulses 3+ and symmetrical. NEUROLOGICAL: Alert and oriented x3. Nonfocal. PSYCHIATRIC: Appropriate affect. - HEENT Visual acuity- Right eye: 20/70 Visual acuity- Left eye: 20/100 Visual acuity- Both eyes: 20/50 Corrective lenses worn: No - Needs Glasses Course - Re-evaluation Re-evalutation: 04/23/20 13:12 Findings, clinical impression and plan of treatment have been discussed with patient/family. Understanding of current findings and recommendations has been acknowledged by them and there is agreement regarding disposition and follow-up. - Vital Signs Vital signs: Temp Pulse Resp BP Pulse Ox 98.2 F 83 19 99/68 L 92 04/23/20 10:46 04/23/20 10:46 04/23/20 10:46 04/23/20 10:46 04/23/20 10:46 Procedures - Eye Procedure Right Time completed: 12:50 Eye Irrigated w/ Saline (ccs): 100 Alcaine Drops Administered: Yes Fluorescein applied: Right Slit lamp used: Yes Notes: 04/23/20 13:04 Superficial corneal abrasion 3 o'clock position. No foreign body identified. No dendrites. No ulceration. No streaming of fluorescein. Discharge - Discharge Clinical Impression: Injury of conjunctiva and corneal abrasion of right eye without foreign body Qualifiers: Encounter type: initial encounter Qualified Code(s): S05.01XA - Injury of conjunctiva and corneal abrasion without foreign body, right eye, initial encounter Condition: Stable Disposition: HOME, SELF-CARE Additional Instructions: Corneal Abrasion You have a corneal abrasion, a scratch on the surface of the eye. The pain of a corneal abrasion feels like a sharp particle in the eye. Usually, antibiotics are placed in the eye to prevent infection. Occasionally, medication will be placed in the eye to dilate the pupil. This is done to relieve some of your discomfort and is only temporary. Pain medication may be required. Don't drive or operate machinery until you have the use of both your eyes. The abrasion usually is healed in one or two days. A follow-up examination to confirm healing is recommended. Call the doctor or return at once if you develop severe pain, decreasing vision, eye swelling, or purulent drainage. 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 Prescriptions: Tramadol HCl [Ultram 50 mg Tablet] 50 mg PO Q4HP PRN #12 tab PRN Reason: Cyclopentolate HCl [Cyclogyl] 2 ml OP TID 3 Days #1 drops Polymyxin B Sulf/Trimethoprim [Polytrim Eye Drops] 1 drop OD Q3H #10 ml Referrals: SANDRO MALDONADO DO [Primary Care Provider] - Follow up as needed
[2020-04-23 13:36] VITALS: BP 102/71
== END 2020-04-23 13:36 | disposition home or self-care (01) ==
LOC: ER 10:38
DX: S05.01XA Injury of conjunctiva and corneal abrasion without foreign body, right eye, initial encounter (principal); X58.XXXA Exposure to other specified factors, initial encounter; E11.9 Type 2 diabetes mellitus without complications; Z90.710 Acquired absence of both cervix and uterus
CPT/HCPCS: 99283; J3490

== ENCOUNTER 2020-05-22 21:04 | Emergency (ER) | payer MEDICARE, MEDICAID ==
[2020-05-22 21:57] VITALS: BP 121/86
[2020-05-22] MEDS ORDERED: IPRATROPIUM/ALBUTEROL 0.5-2.5 MG/3 ML AMPUL NEB ONE (22:08)
--- NOTE | 2020-05-22 22:09 | ER Document Report ---
ED Medical Screen (RME) - General Chief Complaint: Shortness Of Breath Stated Complaint: DIFFICULTY BREATHING Time Seen by Provider: 05/22/20 22:04 Primary Care Provider: SANDRO MALDONADO DO [Primary Care Provider] - Follow up as needed Mode of Arrival: Ambulatory Information source: Patient Notes: HPI; 54-year-old female presents to the emergency room complaining of shortness of breath for the past week. History of COPD. Patient states she went to use her nebulizer machine today and realized that the tubing was broken. Has been taking Tylenol without relief. Denies fevers. Denies recent travel. Denies any COVID-19 exposure. PE: Alert and oriented x3. Mild distress noted. Lungs with scattered wheezes no rhonchi no rales. Heart: Regular rate rhythm without murmurs, rubs, gallops. I have greeted and performed a rapid initial assessment of this patient. A comprehensive ED assessment and evaluation of the patient, analysis of test results and completion of the medical decision making process will be conducted by additional ED providers. I have specifically instructed the patient or family members with the patient to immediately return to any nursing staff should anything change in the patient's condition or with their chief complaint. TRAVEL OUTSIDE OF THE [place] IN LAST 30 DAYS: No - Related Data Allergies/Adverse Reactions: No Known Allergies Allergy (Verified 04/23/20 10:54) Past Medical History - Social History Frequency of alcohol use: None Drug Abuse: None - Past Medical History Cardiac Medical History: Denies: Hx Coronary Artery Disease, Hx Heart Attack, Hx Hypertension Pulmonary Medical History: Reports: Hx Asthma - MODERATE, Hx Bronchitis, Hx COPD, Hx Pneumonia Neurological Medical History: Denies: Hx Cerebrovascular Accident, Hx Seizures Endocrine Medical History: Reports: Hx Diabetes Mellitus Type 2 Renal/ Medical History: Denies: Hx Peritoneal Dialysis Malignancy Medical History: Reports: Hx Lymphoma GI Medical History: Reports: Hx Ulcer - STOMACH ,YEARS AGO. Denies: Hx Hepatitis, Hx Hiatal Hernia Musculoskeltal Medical History: Denies Hx Arthritis Infectious Medical History: Denies: Hx Hepatitis Past Surgical History: Reports: Hx Abdominal Surgery - Peg tube, Hx Hysterectomy, Hx Tonsillectomy, Hx Vascular Surgery - Right neck lymph nodes. Denies: Hx Mastectomy, Hx Open Heart Surgery, Hx Pacemaker - Immunizations Immunizations up to date: Yes Hx Diphtheria, Pertussis, Tetanus Vaccination: Yes Physical Exam - Vital signs Vitals: Temp Pulse Resp BP Pulse Ox 98.5 F 82 18 121/86 H 99 05/22/20 21:56 05/22/20 21:56 05/22/20 21:56 05/22/20 21:56 05/22/20 21:56 Course - Vital Signs Vital signs: Temp Pulse Resp BP Pulse Ox 98.5 F 82 18 121/86 H 99 05/22/20 21:56 05/22/20 21:56 05/22/20 21:56 05/22/20 21:56 05/22/20 21:56 Doctor's Discharge - Discharge Referrals: SANDRO MALDONADO DO [Primary Care Provider] - Follow up as needed
[2020-05-22 22:48] LABS: APPEARANCE,URINE SLIGHTLY-CLOUDY; BILIRUBIN,URINE SMALL (NEGATIVE); COLOR,URINE YELLOW; GLUCOSE, URINE NEGATIVE (NEGATIVE); KETONES,URINE TRACE mg/dL (NEGATIVE); LEUKOCYTE ESTERASE,URINE TRACE (NEGATIVE); NITRITE,URINE NEGATIVE (NEGATIVE); PROTEIN,URINE 30 mg/dL (NEGATIVE)
[2020-05-22 23:00] LABS: ABSOLUTE LYMPHOCYTES (AUTO) 0.9 10^3/uL (0.5-4.7); ABSOLUTE MONOCYTES (AUTO) 0.5 10^3/uL (0.1-1.4); ABSOLUTE NEUT (AUTO) 2.9 10^3/uL (1.7-8.2); BASOPHILS % (AUTO) 0.7 % (0-2); EOSINOPHILS % (AUTO) 1.1 % (0-6); HEMATOCRIT 38.4 % (36.0-47.0); HEMOGLOBIN 13.1 g/dL (12.0-15.5); LYMPHOCYTES % (AUTO) 20.6 % (13-45); MEAN CORPUSCULAR HEMOGLOBIN 31.4 pg (27.0-33.4); MEAN CORPUSCULAR HGB CONC 34.1 g/dL (32.0-36.0); MEAN CORPUSCULAR VOLUME 92 fl (80-97); MONOCYTES % (AUTO) 12.1 % (3-13); PLATELET COUNT 240 10^3/uL (150-450); RED BLOOD COUNT 4.17 10^6/uL (3.72-5.28); RED CELL DISTRIBUTION WIDTH 14.4 % (11.5-14.0); SEGMENTED NEUTROPHILS % (AUTO) 65.5 % (42-78); TOTAL CELLS COUNTED % (AUTO) 100 %; WHITE BLOOD COUNT 4.4 10^3/uL (4.0-10.5)
[2020-05-22 23:16] LABS: ALBUMIN 4.2 g/dL (3.5-5.0); ALKALINE PHOSPHATASE 84 U/L (38-126); ANION GAP 5 (5-19); ASPARTATE AMINO TRANSFERASE 21 U/L (14-36); BILIRUBIN,DIRECT 0.3 mg/dL (0.0-0.4); BILIRUBIN,TOTAL 0.4 mg/dL (0.2-1.3); BLOOD UREA NITROGEN 23 mg/dL (7-20); CALCIUM 8.9 mg/dL (8.4-10.2); CARBON DIOXIDE 35 mmol/L (22-30); CHLORIDE 102 mmol/L (98-107); GLUCOSE 104 mg/dL (75-110); POTASSIUM 4.2 mmol/L (3.6-5.0); TOTAL PROTEIN 6.8 g/dL (6.3-8.2)
--- NOTE | 2020-05-22 23:24 | RADIOLOGY REPORT (SQ) ---
EXAM DESCRIPTION: XR CHEST 2 VIEWS COMPLETED DATE/TME: 05/22/2020 22:07 CLINICAL HISTORY: 54 years, Female, dyspnea EXAM DESCRIPTION: CLINICAL HISTORY: dyspnea COMPARISON: None. FINDINGS: Two views of the chest are submitted. Cardiac silhouette appears normal. There is subtle consolidation at the right lung base. Interstitial markings are thickened and the lungs are hyperinflated. No significant consolidation is seen elsewhere. Percutaneous gastrostomy is present. There is no significant pulmonary vascular engorgement. IMPRESSION: Subtle right lung base consolidation. Pulmonary interstitial disease.
== END 2020-05-22 23:55 | disposition left against medical advice (07) ==
LOC: ER 21:04
DX: J44.9 Chronic obstructive pulmonary disease, unspecified (principal); R06.02 Shortness of breath; E11.9 Type 2 diabetes mellitus without complications; Z87.01 Personal history of pneumonia (recurrent); Z85.72 Personal history of non-Hodgkin lymphomas; Z53.20 Procedure and treatment not carried out because of patient's decision for unspecified reasons
CPT/HCPCS: 36415; 71046; 80053; 81001; 85025; 99281

== ENCOUNTER → 2020-06-04 | Outpatient (CLI) | payer MEDICARE, MEDICAID ==
--- NOTE | 2020-06-04 14:21 | RADIOLOGY REPORT (SQ) ---
EXAM DESCRIPTION: CHEST PA/LATERAL IMAGES COMPLETED DATE/TIME: 06/04/2020 12:18 pm REASON FOR STUDY: COUGH COMPARISON: 05/22/2020 EXAM PARAMETERS: NUMBER OF VIEWS: two views TECHNIQUE: Digital Frontal and Lateral radiographic views of the chest acquired. RADIATION DOSE: NA LIMITATIONS: none FINDINGS: LUNGS AND PLEURA: There is improved aeration in the right lung. No focal consolidation or pleural effusion. Lungs are hyperinflated. No pneumothorax. MEDIASTINUM AND HILAR STRUCTURES: No masses or contour abnormalities. HEART AND VASCULAR STRUCTURES: Heart normal size. No evidence for failure. BONES: No acute findings. HARDWARE: None in the chest. OTHER: No other significant finding. IMPRESSION: NO SIGNIFICANT RADIOGRAPHIC FINDING IN THE CHEST. TECHNICAL DOCUMENTATION: JOB ID: [id number] 2010 [email or web address]- All Rights Reserved Reading location - IP/workstation name: [email or web address]
== END ==
LOC: OD 13:09
PROVIDERS: ATTEND Family Medicine
DX: R05 Cough (principal)
CPT/HCPCS: 71046

== ENCOUNTER 2020-07-02 15:19 | Emergency (ER) | payer MEDICARE, MEDICAID ==
[2020-07-02 15:35] VITALS: BP 149/84
--- NOTE | 2020-07-02 15:41 | ER Document Report ---
ED Medical Screen (RME) - General Chief Complaint: Head Injury Stated Complaint: HEAD INJURY/DIZZY,DISORIENTED Time Seen by Provider: 07/02/20 15:31 Primary Care Provider: SADNRO MALDONADO DO [Primary Care Provider] - Follow up as needed Mode of Arrival: Ambulatory Information source: Patient Notes: 54-year-old female patient presenting to the emergency department 2 days after having a head injury. Patient reports 2 days ago she was cleaning at work when she hit her head on a microwave door. Within 24 hours she started having severe dizziness, headaches, nausea and has not felt right. She states that she has been confused. She is requesting imaging today. Patient is alert, oriented, answering all questions appropriately. She does have a hematoma to the right parietal/occipital area. No hemotympanum noted. I have greeted and performed a rapid initial assessment of this patient. A comprehensive ED assessment and evaluation of the patient, analysis of test results and completion of the medical decision making process will be conducted by additional ED providers. I have specifically instructed the patient or family members with the patient to immediately return to any nursing staff should anything change in the patient's condition or with their chief complaint. TRAVEL OUTSIDE OF THE [place] IN LAST 30 DAYS: No - Related Data Allergies/Adverse Reactions: No Known Allergies Allergy (Verified 04/23/20 10:54) Home Medications: synthroid Past Medical History - Social History Frequency of alcohol use: None Drug Abuse: None - Past Medical History Cardiac Medical History: Denies: Hx Coronary Artery Disease, Hx Heart Attack, Hx Hypertension Pulmonary Medical History: Reports: Hx Asthma - MODERATE, Hx Bronchitis, Hx COPD, Hx Pneumonia Neurological Medical History: Denies: Hx Cerebrovascular Accident, Hx Seizures Endocrine Medical History: Reports: Hx Diabetes Mellitus Type 2 Renal/ Medical History: Denies: Hx Peritoneal Dialysis Malignancy Medical History: Reports: Hx Lymphoma GI Medical History: Reports: Hx Ulcer - STOMACH ,YEARS AGO. Denies: Hx Hepatitis, Hx Hiatal Hernia Musculoskeltal Medical History: Denies Hx Arthritis Infectious Medical History: Denies: Hx Hepatitis Past Surgical History: Reports: Hx Abdominal Surgery - Peg tube, Hx Hysterectomy, Hx Tonsillectomy, Hx Vascular Surgery - Right neck lymph nodes. Denies: Hx Mastectomy, Hx Open Heart Surgery, Hx Pacemaker - Immunizations Immunizations up to date: Yes Hx Diphtheria, Pertussis, Tetanus Vaccination: Yes Physical Exam - Vital signs Vitals: Temp Pulse Resp BP Pulse Ox 98.0 F 80 16 149/84 H 93 07/02/20 15:33 07/02/20 15:33 07/02/20 15:33 07/02/20 15:33 07/02/20 15:33 Course - Vital Signs Vital signs: Temp Pulse Resp BP Pulse Ox 98.0 F 80 16 149/84 H 93 07/02/20 15:33 07/02/20 15:33 07/02/20 15:33 07/02/20 15:33 07/02/20 15:33 Doctor's Discharge - Discharge Referrals: SANDRO MALDONADO DO [Primary Care Provider] - Follow up as needed
[2020-07-02 16:13] LABS: ABSOLUTE BASOPHILS # (AUTO) 0.1 10^3/uL (0.0-0.2); ABSOLUTE EOSINOPHILS # (AUTO) 0.1 10^3/uL (0.0-0.6); ABSOLUTE LYMPHOCYTES (AUTO) 1.4 10^3/uL (0.5-4.7); ABSOLUTE NEUT (AUTO) 7.1 10^3/uL (1.7-8.2); APPEARANCE,URINE CLEAR; BASOPHILS % (AUTO) 0.6 % (0-2); BILIRUBIN,URINE NEGATIVE (NEGATIVE); COLOR,URINE AMBER; EOSINOPHILS % (AUTO) 0.6 % (0-6); GLUCOSE, URINE NEGATIVE (NEGATIVE); HEMATOCRIT 40.3 % (36.0-47.0); HEMOGLOBIN 13.3 g/dL (12.0-15.5); KETONES,URINE TRACE mg/dL (NEGATIVE); LEUKOCYTE ESTERASE,URINE LARGE (NEGATIVE); LYMPHOCYTES % (AUTO) 14.2 % (13-45); MEAN CORPUSCULAR HEMOGLOBIN 31.3 pg (27.0-33.4); MEAN CORPUSCULAR HGB CONC 32.8 g/dL (32.0-36.0); MEAN CORPUSCULAR VOLUME 95 fl (80-97); MONOCYTES % (AUTO) 10.7 % (3-13); NITRITE,URINE NEGATIVE (NEGATIVE); PLATELET COUNT 186 10^3/uL (150-450); PROTEIN,URINE 30 mg/dL (NEGATIVE); RED BLOOD COUNT 4.23 10^6/uL (3.72-5.28); RED CELL DISTRIBUTION WIDTH 14.4 % (11.5-14.0); SEGMENTED NEUTROPHILS % (AUTO) 73.9 % (42-78); TOTAL CELLS COUNTED % (AUTO) 100 %; URINE SPECIFIC GRAVITY 1.035; WHITE BLOOD COUNT 9.6 10^3/uL (4.0-10.5)
[2020-07-02 16:31] LABS: ALBUMIN 4.4 g/dL (3.5-5.0); ALKALINE PHOSPHATASE 100 U/L (38-126); ANION GAP 9 (5-19); ASPARTATE AMINO TRANSFERASE 29 U/L (14-36); BILIRUBIN,DIRECT 0.4 mg/dL (0.0-0.4); BILIRUBIN,TOTAL 0.8 mg/dL (0.2-1.3); BLOOD UREA NITROGEN 28 mg/dL (7-20); CALCIUM 9.3 mg/dL (8.4-10.2); CARBON DIOXIDE 32 mmol/L (22-30); CHLORIDE 103 mmol/L (98-107); GLUCOSE 94 mg/dL (75-110); POTASSIUM 5.5 mmol/L (3.6-5.0); TOTAL PROTEIN 6.9 g/dL (6.3-8.2)
--- NOTE | 2020-07-02 18:14 | RADIOLOGY REPORT (SQ) ---
EXAM DESCRIPTION: CT HEAD WITHOUT IMAGES COMPLETED DATE/TIME: 07/02/2020 6:03 pm REASON FOR STUDY: head injury COMPARISON: 2016 TECHNIQUE: Axial images acquired through the brain without intravenous contrast. Images reviewed wi th bone, brain and subdural windows. Additional sagittal and coronal reconstructions were generated. Images stored on PACS. All CT scanners at this facility use dose modulation, iterative reconstruction, and/or weight based d osing when appropriate to reduce radiation dose to as low as reasonably achievable (ALARA). [facility]: Dose Right [facility]: CareDose [facility]: Dose Right [facility]: Teradose 4D [facility]: Intellikine RADIATION DOSE: CT Rad equipment meets quality standard of care and radiation dose reduction techniq ues were employed. CTDIvol: 53.2 mGy. DLP: 991 mGy-cm. mGy. LIMITATIONS: None. FINDINGS: VENTRICLES: Normal size and contour. CEREBRUM: No masses. No hemorrhage. No midline shift. No evidence for acute infarction. Normal gra y/white matter differentiation. No areas of low density in the white matter. CEREBELLUM: No masses. No hemorrhage. No alteration of density. No evidence for acute infarction. EXTRAAXIAL SPACES: No fluid collections. No masses. ORBITS AND GLOBE: No intra- or extraconal masses. Normal contour of globe without masses. CALVARIUM: No fracture. PARANASAL SINUSES: No fluid or mucosal thickening. SOFT TISSUES: No mass or hematoma. OTHER: No other significant finding. IMPRESSION: NORMAL BRAIN CT WITHOUT CONTRAST. EVIDENCE OF ACUTE STROKE: NO. COMMENT: Quality ID # [id number]: Final reports with documentation of one or more dose reduction techniques (e.g., Automated exposure control, adjustment of the mA and/or kV according to patient size, use of iterative reconstruction technique) TECHNICAL DOCUMENTATION: JOB ID: [id number] 2010 [email or web address]- All Rights Reserved Reading location - IP/workstation name: [email or web address]
--- NOTE | 2020-07-03 19:46 | EKG REPORT ---
SEVERITY:- NORMAL ECG - SINUS RHYTHM : Confirmed by: Uriel Canales 03-Jul-2020 19:46:00
== END 2020-07-02 23:03 | disposition left against medical advice (07) ==
LOC: ER 15:19
DX: S09.90XA Unspecified injury of head, initial encounter (principal); R42 Dizziness and giddiness; R11.0 Nausea; W22.09XA Striking against other stationary object, initial encounter; Y99.0 Civilian activity done for income or pay; E11.9 Type 2 diabetes mellitus without complications
CPT/HCPCS: 36415; 70450; 80053; 81001; 85025; 93005; 93010; 99281

== ENCOUNTER → 2020-07-12 | Day surgery (SDC) | payer MEDICARE, MEDICAID ==
[2020-07-09 09:56] LABS: HEMATOCRIT 42.8 % (36.0-47.0); HEMOGLOBIN 14.5 g/dL (12.0-15.5); MEAN CORPUSCULAR HEMOGLOBIN 31.6 pg (27.0-33.4); MEAN CORPUSCULAR HGB CONC 33.9 g/dL (32.0-36.0); MEAN CORPUSCULAR VOLUME 93 fl (80-97); PLATELET COUNT 220 10^3/uL (150-450); RED CELL DISTRIBUTION WIDTH 13.7 % (11.5-14.0); WHITE BLOOD COUNT 5.6 10^3/uL (4.0-10.5)
[2020-07-09 10:29] LABS: ANION GAP 10 (5-19); BLOOD UREA NITROGEN 18 mg/dL (7-20); CALCIUM 9.3 mg/dL (8.4-10.2); CARBON DIOXIDE 33 mmol/L (22-30); CHLORIDE 98 mmol/L (98-107); GLUCOSE 75 mg/dL (75-110); POTASSIUM 5.5 mmol/L (3.6-5.0)
[~2020-07-12] MED LIST changes: +ACETAMINOPHEN 325 MG TABLET PO PRN; -CEFAZOLIN 1 GM/D5W RTU 1 GM/50 ML RTUPB IV ONE; -CEFAZOLIN 1 GM/D5W RTU 1 GM/50 ML RTUPB IV PRN; -DEXTROSE 5%-LACTATED RINGERS 1,000 ML IV PRN; +LACTATED RINGERS 1000 ML IV PRN; +LIDOCAINE 0.5% INJ-PF (5 MG/ML) 50 ML SDV SUBCUT PRN; +PROPOFOL INJ 200 MG/20 ML VIAL IV ONE
--- NOTE | 2020-07-12 08:21 | Discharge Summary ---
Discharge Summary (SDC) - Discharge Final Diagnosis: 1. Normal colon 2. Personal history of head and neck cancer 3. Smoker 4. Personal history of colon polyps Date of Surgery: 07/12/20 Discharge Date: 07/12/20 Condition: Good Treatment or Instructions: [facility] [address] [address] POST ENDOSCOPY DISCHARGE INSTRUCTIONS 1. Diet: Start clear liquids that a regular diet as tolerated. 2. Resume all preoperative medications. All oral anticoagulants and aspirins can be resumed 24 hours after procedure. 3. If a polypectomy was performed some bleeding per rectum may occur. This should stop within 3 days. If not, please contact the office. 4. If you had a colonoscopy you may experience some bloating and delayed return of normal bowel function for several days, your regular bowel movement pattern should resume within a week. 5. Please contact [facility] at to make an appointment with Dr. Melgoza for 1 to 3 weeks following procedure. 6. If you have any questions or concerns regarding your care,treatment plan or follow up, please contact our office. 7. Per clinical guidelines we recommend you undergo a repeat colonoscopy in 5 years. Referrals: SANDRO MALDONADO DO [Primary Care Provider] - Discharge Diet: As Tolerated Discharge Activity: Activity As Tolerated Home Care Assistance: None Needed Report the Following to Your Physician Immediately: Shortness of Breath, Increase in Pain, Fever over 101 Degrees
--- NOTE | 2020-07-12 08:22 | Operative Report ---
Operative Report DATE OF SURGERY: 07/12/20 PREOPERATIVE DIAGNOSIS: 1. Personal history of hyperplastic polyps of the colo n. 2. History of head neck cancer, thyroid cancer. 3. Smoker POSTOPERATIVE DIAGNOSIS: Same; normal: OPERATION: Total colonoscopy to cecum with photodocumentation SURGEON: RUDI RAPHAEL ANESTHESIA: LMAC TISSUE REMOVED OR ALTERED: None COMPLICATIONS: None ESTIMATED BLOOD LOSS: None INTRAOPERATIVE FINDINGS: See below PROCEDURE: Obtaining informed consent the patient was taken from the preoperative holding area to the main endoscopy suite where monitoring devices were attached to the patient. Plan and surgical timeout were conducted The patient was placed in the left lateral decubitus position with knees to chest. A perianal examination was performed. There was no visible or palpable anorectal pathology. Sphincter tone was felt to be normal. The flexible adult colonoscope was advanced through the anal rectal canal, all the way to the cecum. Visualization of the cecum was achieved by demonstration of the ileocecal valve, and transillumination of the anterior abdominal wall. This was an excellent study on the well-prepped bowel. The colonoscope was withdrawn slowly and methodically checked and the mucosa carefully. There was no evidence of tumor, stricture, bleeding or polyp. There was no evidence of diverticuloses. The scope was slowly withdrawn through the anal rectal canal. Complete visualization of the rectum was achieved with photodocumentation. The scope was withdrawn to the patient's anus. The patient tolerated the procedure well and was taken to the recovery area in stable condition. Per surveillance guidelines, patient will be an appropriate candidate for follow-up colonoscopy in 5 years.
[2020-07-12 10:18] VITALS: BP 118/70
== END ==
LOC: END 07:09
PROVIDERS: ATTEND Surgery
DX: Z86.010 Personal history of colon polyps (principal); Z85.819 Personal history of malignant neoplasm of unspecified site of lip, oral cavity, and pharynx; Z85.850 Personal history of malignant neoplasm of thyroid; F17.210 Nicotine dependence, cigarettes, uncomplicated; R10.9 Unspecified abdominal pain; K27.9 Peptic ulcer, site unspecified, unspecified as acute or chronic, without hemorrhage or perforation; K21.00 Gastro-esophageal reflux disease with esophagitis, without bleeding; K31.9 Disease of stomach and duodenum, unspecified; R47.02 Dysphasia; Z83.79 Family history of other diseases of the digestive system; F11.11 Opioid abuse, in remission; F31.9 Bipolar disorder, unspecified; Z03.818 Encounter for observation for suspected exposure to other biological agents ruled out; Z93.1 Gastrostomy status; Z92.3 Personal history of irradiation; Z79.899 Other long term (current) drug therapy
CPT/HCPCS: 45378; 36415; 85027; 80048; 00812; U0003; J2704; C9803; 812; 87635

== ENCOUNTER 2020-07-17 17:42 | Inpatient (IN) | payer MEDICARE, MEDICAID ==
--- NOTE | 2020-07-17 17:49 | ER Document Report ---
ED General - General Chief Complaint: Altered Mental Status Stated Complaint: POST CARDIAC ARREST Time Seen by Provider: 07/17/20 17:49 Primary Care Provider: SANDRO MALDONADO DO [Primary Care Provider] - Follow up as needed TRAVEL OUTSIDE OF THE [place] IN LAST 30 DAYS: No - HPI Notes: 55-year-old female arrives via EMS after being found down at home. EMS reports that the call was for concern for cardiac arrest as patient was found unresponsive at home. On arrival they note that patient did have a pulse, however she was unresponsive on the kitchen floor, EMS did not do any chest compressions or administer any cardiac medications. EMS states that bystanders had already administered 4 mg of Narcan prior to their arrival, they then administered another 0.5 mg. They note that patient's pupils were initially fixed and dilated, further described as being 6 mm. They report that after Narcan administration her pupils became reactive. However in route they were concerned that she was decorticate posturing although she was responsive. Glucose 526, reportedly no history of diabetes. Patient grunts/groans, HPI limited due to acuity of condition. - Related Data Allergies/Adverse Reactions: No Known Allergies Allergy (Verified 04/23/20 10:54) Past Medical History - General Information source: Emergency Med Personnel Cannot obtain history due to: Altered mental status - Social History Smoking Status: Unknown if Ever Smoked Family History: Reviewed & Not Pertinent - Past Medical History Cardiac Medical History: Denies: Hx Coronary Artery Disease, Hx Heart Attack, Hx Hypertension Pulmonary Medical History: Reports: Hx Asthma - MODERATE, Hx Bronchitis, Hx COPD, Hx Pneumonia Neurological Medical History: Denies: Hx Cerebrovascular Accident, Hx Seizures Endocrine Medical History: Reports: Hx Diabetes Mellitus Type 2 Renal/ Medical History: Denies: Hx Peritoneal Dialysis Malignancy Medical History: Reports: Hx Lymphoma GI Medical History: Reports: Hx Ulcer - STOMACH ,YEARS AGO. Denies: Hx Hepatitis, Hx Hiatal Hernia Musculoskeletal Medical History: Denies Hx Arthritis Infectious Medical History: Denies: Hx Hepatitis Past Surgical History: Reports: Hx Abdominal Surgery - Peg tube, Hx Hys terectomy, Hx Tonsillectomy, Hx Vascular Surgery - Right neck lymph nodes. Denies: Hx Mastectomy, Hx Open Heart Surgery, Hx Pacemaker - Immunizations Immunizations up to date: Yes Hx Diphtheria, Pertussis, Tetanus Vaccination: Yes Hx Pneumococcal Vaccination: 09/21/10 Review of Systems - Review of Systems -: Yes ROS unobtainable due to patient's medical condition Physical Exam - Vital signs Vitals: Temp 90.7 F L 07/17/20 17:42 - General General appearance: Alert Notes: Chronically ill-appearing - HEENT Head: Normocephalic, Atraumatic Eyes: No: Scleral icterus Extraocular movements intact: Yes Pupils: PERRL. No: Dilated Notes: Evidence of previous neck surgery - Respiratory Respiratory status: No respiratory distress Breath sounds: Normal. No: Rales, Rhonchi, Wheezing - Cardiovascular Rhythm: Regular, Irregularly irregular Pulses: Normal: Dorsalis pedis Normal capillary refill: Yes - Abdominal Distension: No distension Tenderness: Nontender Notes: G-tube present, no erythema or discharge from around site - Extremities General lower extremity: No: Edema - Neurological Notes: Patient is alert, she makes eye contact, she tracks around the room, she is able to follow commands, however primarily moans/groans, she did say "ow ow ow" and make direct eye contact when [place] was being inserted - Psychological Associated symptoms: Other - Unable to fully assess at this time - Skin Skin Moisture: Dry Course - Re-evaluation Re-evalutation: 55-year-old female arrives via EMS after being found down at home, unknown downtime. EMS reports initially were called out to the house for cardiac arrest, however patient had a pulse and no CPR/ACLS meds were administered. She was administered 4.5 mg Narcan in total with reported improvement in her mental status. On arrival patient is alert and will follow commands, she does not exhibit any evidence of posturing, her pupils are equal and reactive, I do not see any evidence of head trauma. Dr. Melgoza who is familiar with patient's care and recently did a procedure on her, reports that she has history of thyroid/head/neck cancer and has issues with substance abuse. I reviewed her medication records and appears she is on methadone. I am concerned for potential overdose and she may now be in withdrawal given that her methadone has been reversed. Will CT head to evaluate for bleed which may have attributed to her presentation today, additionally could CT C-spine as not able to clinically clear. She does have some coarse rhonchi, concern for possible aspiration, chest x-ray ordered. Will also look for infectious causes given her hypothermia. Have ordered warm fluids and blankets to be applied. Rhabdo possibility as well. Currently hemodynamically stable. 07/17/20 18:38 VBG has resulted, there is evidence of a respiratory acidosis with pH 7.01 and PCO2 132, CO2 retention can be expected given her reported unresponsive state, will start patient on BiPAP 07/17/20 18:44 Patient's daughter has arrived at bedside. She states that they went to the grocery store today, patient drove herself home, was supposed to text when she got into the house. Patient daughter states that she lost track of time and realized that she had not heard from her mother, drove straight to her house and found her passed out on the floor. She states that she maneuvered her head and neck and gave her some rescue breaths. 07/17/20 18:56 Imaging reports available, images reviewed. Per radiology no acute intracranial findings. No acute fracture of cervical spine. Chest x-ray without opacities. 07/17/20 19:19 Leukocytosis present, possible reactionary. Elevated Hgb/HCT, suggestive of hemoconcentration. MONTEZ present, will receive more fluids. Elevated electrolytes suggestive of dehydration/hemoconcentration as well. No elevation of CK. Troponin indeterminate range, suspect stress response due to her current condition. TSH elevated, however free T4 within normal limits, she is on supplementation. Urine does not suggest UTI. UDS positive for methadone as expected, ethanol negative. 07/17/20 19:58 Went in to rediscuss with patient's daughter. Daughter states that patient does not really eat and drink as much as she should, has the NG tube in place but still has issues keeping up. Daughter states she frequently has to prompt her mother and stay on top of her for her oral intake. I discussed that potentially dehydration leading to MONTEZ could have caused accumulation of methadone in patients system leading to her presentation today. Patient is tolerating BiPAP well, will repeat a VBG. She will awaken to voice but is mostly sleeping comfortably in bed. 07/17/20 20:53 Patient having some soft pressures. Have previously ordered LR infusion, however canceled this and we will bolus her instead. Temperature has increased, will discontinue warming measures. 07/17/20 21:04 Repeat chest x-ray without consolidation, however hyperinflation possibly more prominent. Given her soft pressures, concern for auto peeping, I went in and provide manual pressure to her chest with large exhale, blood pressure increased to 110/76. Daughter at bedside states that her blood pressure typically does r un on the low side as well. 07/17/20 21:[address] Oreilly for admission to [facility]. VBG has not been done, will change to ABG to better assess respiratory status. - Vital Signs Vital signs: Temp Pulse Resp BP Pulse Ox 100.5 F H 72 25 H 97/72 L 93 07/17/20 20:26 07/17/20 18:01 07/17/20 20:32 07/17/20 20:26 07/17/20 20:32 - Laboratory Result Diagrams: 07/17/20 17:50 07/17/20 17:50 Laboratory results interpreted by me: 07/17/20 07/17/20 07/17/20 17:50 17:50 17:50 WBC 19.8 H Hgb 16.1 H Hct 50.9 H MCV 99 H D MCHC 31.7 L RDW 14.5 H Lymph % (Auto) 8.9 L Absolute Neuts (auto) 17.3 H Seg Neutrophils % 87.1 H VBG pH VBG pCO2 VBG HCO3 Potassium 5.6 H Chloride 94 L BUN 30 H Creatinine 1.49 H Est GFR ( Amer) 44 L Est GFR (MDRD) Non-Af 36 L Glucose 539 H* Lactic Acid Phosphorus 9.5 H Magnesium 3.0 H AST 46 H ALT 62 H NT-Pro-B Natriuret Pep 279 H TSH Urine Protein Urine Glucose (UA) Urine Blood 07/17/20 07/17/20 07/17/20 17:50 17:50 17:50 WBC Hgb Hct MCV MCHC RDW Lymph % (Auto) Absolute Neuts (auto) Seg Neutrophils % VBG pH 7.01 L* VBG pCO2 132.3 H* VBG HCO3 32.8 H Potassium Chloride BUN Creatinine Est GFR ( Amer) Est GFR (MDRD) Non-Af Glucose Lactic Acid 5.8 H Phosphorus Magnesium AST ALT NT-Pro-B Natriuret Pep TSH 13.10 H Urine Protein Urine Glucose (UA) Urine Blood 07/17/20 18:00 WBC Hgb Hct MCV MCHC RDW Lymph % (Auto) Absolute Neuts (auto) Seg Neutrophils % VBG pH VBG pCO2 VBG HCO3 Potassium Chloride BUN Creatinine Est GFR ( Amer) Est GFR (MDRD) Non-Af Glucose Lactic Acid Phosphorus Magnesium AST ALT NT-Pro-B Natriuret Pep TSH Urine Protein 30 H Urine Glucose (UA) >=500 H Urine Blood SMALL H - Diagnostic Test Radiology reviewed: Image reviewed, Reports reviewed - EKG Interpretation by Me Additional EKG results interpreted by me: EKG is interpreted by me. Sinus rhythm, rate 73. Narrow QRS, QTC within normal limits. No ST segment elevation. Morphology similar to previous EKG. Critical Care Note - Critical Care Note Total time excluding time spent on procedures (mins): 45 - Patiently critically ill with possibility of a decline. Altered mental status, respiratory acidosis, hypothermia, etc. Discharge - Discharge Clinical Impression: Acute respiratory acidosis, MONTEZ (acute kidney injury), Dehydration Altered mental status Qualifiers: Altered mental status type: unspecified Qualified Code(s): R41.82 - Altered mental status, unspecified Hypothermia Qualifiers: Encounter type: initial encounter Qualified Code(s): T68.XXXA - Hypothermia, initial encounter Disposition: ADMITTED INPATIENT Admitting Provider: [facility] (Hospitalist) Unit Admitted: IMCU Referrals: SANDRO MALDONADO DO [Primary Care Provider] - Follow up as needed
[2020-07-17] MEDS ORDERED: RINGERS SOLUTION,LACTATED 1,000 ML IV ONE ×3 (18:02→20:40)
[2020-07-17 18:15] LABS: ABSOLUTE EOSINOPHILS # (AUTO) 0.1 10^3/uL (0.0-0.6); ABSOLUTE LYMPHOCYTES (AUTO) 1.8 10^3/uL (0.5-4.7); ABSOLUTE MONOCYTES (AUTO) 0.6 10^3/uL (0.1-1.4); ABSOLUTE NEUT (AUTO) 17.3 10^3/uL (1.7-8.2); BASOPHILS % (AUTO) 0.2 % (0-2); EOSINOPHILS % (AUTO) 0.6 % (0-6); HEMATOCRIT 50.9 % (36.0-47.0); HEMOGLOBIN 16.1 g/dL (12.0-15.5); LYMPHOCYTES % (AUTO) 8.9 % (13-45); MEAN CORPUSCULAR HEMOGLOBIN 31.3 pg (27.0-33.4); MEAN CORPUSCULAR HGB CONC 31.7 g/dL (32.0-36.0); MONOCYTES % (AUTO) 3.2 % (3-13); PLATELET COUNT 343 10^3/uL (150-450); RED BLOOD COUNT 5.15 10^6/uL (3.72-5.28); RED CELL DISTRIBUTION WIDTH 14.5 % (11.5-14.0); SEGMENTED NEUTROPHILS % (AUTO) 87.1 % (42-78); TOTAL CELLS COUNTED % (AUTO) 100 %; WHITE BLOOD COUNT 19.8 10^3/uL (4.0-10.5)
[2020-07-17 18:26] LABS: MEAN CORPUSCULAR VOLUME 99 fl (80-97); VENOUS BLOOD BASE EXCESS -2.9 mmol/L; VENOUS BLOOD HCO3 32.8 mmol/L (20-32)
[2020-07-17 18:29] LABS: VENOUS BLOOD PCO2 132.3 mmHg (35-63); VENOUS BLOOD PH 7.01 (7.30-7.42)
[2020-07-17 18:33] LABS: ALKALINE PHOSPHATASE 113 U/L (38-126); ANION GAP 19 (5-19); ASPARTATE AMINO TRANSFERASE 46 U/L (14-36); BILIRUBIN,DIRECT 0.3 mg/dL (0.0-0.4); BILIRUBIN,TOTAL 0.5 mg/dL (0.2-1.3); BLOOD UREA NITROGEN 30 mg/dL (7-20); CALCIUM 9.4 mg/dL (8.4-10.2); CARBON DIOXIDE 25 mmol/L (22-30); CHLORIDE 94 mmol/L (98-107); CREATINE KINASE 128 U/L (30-135); PHOSPHORUS 9.5 mg/dL (2.5-4.5); POTASSIUM 5.6 mmol/L (3.6-5.0); TOTAL PROTEIN 7.6 g/dL (6.3-8.2)
--- NOTE | 2020-07-17 18:33 | RADIOLOGY REPORT (SQ) ---
EXAM DESCRIPTION: CHEST SINGLE VIEW IMAGES COMPLETED DATE/TIME: 07/17/2020 6:24 pm REASON FOR STUDY: eval bleed COMPARISON: 06/04/2020 EXAM PARAMETERS: NUMBER OF VIEWS: One view. TECHNIQUE: Single frontal radiographic view of the chest acquired. RADIATION DOSE: NA LIMITATIONS: None. FINDINGS: LUNGS AND PLEURA: No opacities, masses or pneumothorax. No pleural effusion. MEDIASTINUM AND HILAR STRUCTURES: No masses. Contour normal. HEART AND VASCULAR STRUCTURES: Heart normal in size. Normal vasculature. BONES: No acute findings. HARDWARE: None in the chest. OTHER: No other significant finding. IMPRESSION: 1. No significant interval changes since the prior study dated 06/04/2020. No acute fin dings. TECHNICAL DOCUMENTATION: JOB ID: [id number] 2010 [email or web address]- All Rights Reserved Reading location - IP/workstation name: [email or web address]
[2020-07-17 18:34] LABS: ALCOHOL < 10 mg/dL (NONE DETECTED)
[2020-07-17 18:39] LABS: GLUCOSE 539 mg/dL (75-110)
[2020-07-17 18:46] LABS: TROPONIN I 0.05 ng/mL
--- NOTE | 2020-07-17 18:48 | RADIOLOGY REPORT (SQ) ---
EXAM DESCRIPTION: CT HEAD WITHOUT IMAGES COMPLETED DATE/TIME: 07/17/2020 5:11 pm REASON FOR STUDY: eval bleed. Previous injury on 07/02/2020 COMPARISON: CT head 07/02/2020 TECHNIQUE: Axial images acquired through the brain without intravenous contrast. Images reviewed wi th bone, brain and subdural windows. Additional sagittal and coronal reconstructions were generated. Images stored on PACS. All CT scanners at this facility use dose modulation, iterative reconstruction, and/or weight based d osing when appropriate to reduce radiation dose to as low as reasonably achievable (ALARA). [facility]: Dose Right [facility]: CareDose [facility]: Dose Right [facility]: Teradose 4D [facility]: [employer]price RADIATION DOSE: CT Rad equipment meets quality standard of care and radiation dose reduction techniq ues were employed. CTDIvol: 53.2 mGy. DLP: 1070 mGy-cm. mGy. LIMITATIONS: Motion obscures some detail. FINDINGS: VENTRICLES: Normal size and contour. CEREBRUM: No masses. No hemorrhage. No midline shift. No evidence for acute infarction. Normal gra y/white matter differentiation. No areas of low density in the white matter. CEREBELLUM: No masses. No hemorrhage. No alteration of density. No evidence for acute infarction. EXTRAAXIAL SPACES: No fluid collections. No masses. ORBITS AND GLOBE: No intra- or extraconal masses. Normal contour of globe without masses. CALVARIUM: No fracture. PARANASAL SINUSES: No fluid or mucosal thickening. SOFT TISSUES: No mass or hematoma. OTHER: No other significant finding. IMPRESSION: NO ACUTE INTRACRANIAL IMAGING FINDINGS. EVIDENCE OF ACUTE STROKE: NO. COMMENT: Quality ID # [id number]: Final reports with documentation of one or more dose reduction techniques (e.g., Automated exposure control, adjustment of the mA and/or kV according to patient size, use of iterative reconstruction technique) TECHNICAL DOCUMENTATION: JOB ID: [id number] 2010 [employer]- All Rights Reserved Reading location - IP/workstation name: [email or web address]
[2020-07-17 18:50] LABS: FREE T4 (FREE THYROXINE) 1.01 ng/dL (0.78-2.19)
[2020-07-17 18:51] LABS: APPEARANCE,URINE CLEAR; BILIRUBIN,URINE NEGATIVE (NEGATIVE); COLOR,URINE STRAW; GLUCOSE, URINE >=500 mg/dL (NEGATIVE); KETONES,URINE NEGATIVE (NEGATIVE); LEUKOCYTE ESTERASE,URINE NEGATIVE (NEGATIVE); NITRITE,URINE NEGATIVE (NEGATIVE); PROTEIN,URINE 30 mg/dL (NEGATIVE); URINE SPECIFIC GRAVITY 1.009; UROBILINOGEN,URINE NEGATIVE mg/dL (<2.0)
--- NOTE | 2020-07-17 18:51 | RADIOLOGY REPORT (SQ) ---
EXAM DESCRIPTION: CT CERVICAL SPINE WITHOUT IMAGES COMPLETED DATE/TIME: 07/17/2020 5:16 pm REASON FOR STUDY: eval fracture COMPARISON: PET CT, 01/03/2020. TECHNIQUE: Axial images acquired through the cervical spine without intravenous contrast. Images re viewed with lung, soft tissue and bone windows. Reconstructed coronal and sagittal MPR images review ed. Images stored on PACS. All CT scanners at this facility use dose modulation, iterative reconstruction, and/or weight based d osing when appropriate to reduce radiation dose to as low as reasonably achievable (ALARA). [facility]: Dose Right [facility]: CareDose [facility]: Dose Right [facility]: Teradose 4D [facility]: [employer] RADIATION DOSE: CT Rad equipment meets quality standard of care and radiation dose reduction techniq ues were employed. CTDIvol: 6.5 mGy. DLP: 141 mGy-cm. mGy. LIMITATIONS: None. FINDINGS: ALIGNMENT: Anatomic. MINERALIZATION: Normal. VERTEBRAL BODIES: No fractures or dislocation. DISCS: Mild degenerative disc disease. No significant spinal canal stenosis. FACETS, LATERAL MASSES, POSTERIOR ELEMENTS: No fractures. No dislocation. No acute findings. HARDWARE: None in the spine. VISUALIZED RIBS: No fractures. LUNG APICES AND SOFT TISSUES: Background mild pulmonary emphysema. No focal consolidation. Right ce rvical dissection with multiple surgical clips unchanged from prior PET. OTHER: No other significant finding. IMPRESSION: No acute fracture or dislocation of the cervical spine. TECHNICAL DOCUMENTATION: JOB ID: [id number] Quality ID # [id number]: Final reports with documentation of one or more dose reduction techniques (e.g., Au tomated exposure control, adjustment of the mA and/or kV according to patient size, use of iterative reconstruction technique) 2010 [employer]- All Rights Reserved Reading location - IP/workstation name: [email or web address]
[2020-07-17 19:04] LABS: THYROID STIMULATING HORMONE 13.1 uIU/mL (0.47-4.68)
[2020-07-17 19:13] LABS: URINE AMPHETAMINES SCREEN NEGATIVE; URINE BARBITURATES SCREEN NEGATIVE; URINE BENZODIAZEPINES SCREEN NEGATIVE; URINE COCAINE SCREEN NEGATIVE; URINE MARIJUANA (THC) SCREEN NEGATIVE; URINE PHENCYCLIDINE SCREEN NEGATIVE
[2020-07-17 19:16] LABS: URINE METHADONE SCREEN UNCONFIRMED POSITIVE
--- NOTE | 2020-07-17 21:09 | RADIOLOGY REPORT (SQ) ---
EXAM DESCRIPTION: XR CHEST 1 VIEW COMPLETED DATE/TME: 07/17/2020 20:18 CLINICAL HISTORY: re-eval after bipap COMPARISON: None FINDINGS: Cardiac silhouette is within normal limits. There is atherosclerosis. EKG leads project over the chest. Surgical clips noted within the right side of the neck. The right costophrenic angle was not completely included in the exam. There is no focal parenchymal or pleural disease. There is no acute osseous process visualized. IMPRESSION: No evidence of acute cardiopulmonary disease.
[2020-07-17] MEDS ORDERED: ONDANSETRON HCL INJ/PF 4 MG/2 ML SDV IV PRN (21:56)
[2020-07-17] MEDS ORDERED: RINGERS SOLUTION,LACTATED 1,000 ML IV PRN (21:56)
[2020-07-17] MEDS ORDERED: LEVALBUTEROL HCL NEB 0.63 MG/3 ML AMPUL NEB PRN (21:56)
[2020-07-17] MEDS ORDERED: ACETAMINOPHEN 650 MG SUPP.RECT PR PRN (22:04)
[2020-07-17] MEDS ORDERED: NICOTINE 21 MG/24 HR PATCH.TD24 TD PRN (22:04)
[2020-07-17] MEDS ORDERED: LORAZEPAM INJ 2 MG/1 ML VIAL IV PRN (22:04)
[2020-07-17] MEDS ORDERED: DEXTROSE 40% GEL 15 GM TUBE PO PRN ×2 (22:05)
[2020-07-17] MEDS ORDERED: GLUCAGON,HUMAN RECOMB 1 MG INJ IM PRN (22:05)
[2020-07-17] MEDS ORDERED: DEXTROSE 50%-WATER 25 GM/50 ML DISP.SYRIN IV PRN ×2 (22:05)
[2020-07-17 22:06] LABS: ARTERIAL BLOOD BASE EXCESS 5.8 mmol/L; ARTERIAL BLOOD H2CO3 1.75 mmol/L (1.05-1.35); ARTERIAL BLOOD HCO3 32.8 mmol/L (20-24); ARTERIAL BLOOD O2 SATURATION 91.2 % (94-98); ARTERIAL BLOOD PCO2 58.2 mmHg (35-45); ARTERIAL BLOOD PH 7.37 (7.35-7.45); ARTERIAL BLOOD PO2 63.5 mmHg (80-100); ARTERIAL BLOOD TOTAL CO2 34.6 mmol/L (21-25)
[2020-07-17 22:07] LABS: ARTERIAL BLOOD FIO2 28%
[2020-07-17] MEDS: PANTOPRAZOLE SODIUM 40 MG VIAL IV SCH (23:40)
[2020-07-17] MEDS: HEPARIN SOD (PORCINE) 5,000 UNIT/ML 1 ML VIAL SUBCUT SCH (23:44)
[2020-07-17] MEDS: INSULIN LISPRO 100 UNIT/ML 3 ML VIAL SUBCUT SCH (23:47)
[2020-07-18] MEDS: DEXTROSE 5%-LACTATED RINGERS 1,000 ML IV PRN ×3 (00:15→12:17)
[2020-07-18] MEDS: LEVALBUTEROL HCL NEB 1.25 MG/3 ML AMPUL NEB SCH ×2 (01:28→08:31)
[2020-07-18] MEDS: INSULIN LISPRO 100 UNIT/ML 3 ML VIAL SUBCUT SCH ×6 (04:11→22:00)
[2020-07-18] MEDS: HEPARIN SOD (PORCINE) 5,000 UNIT/ML 1 ML VIAL SUBCUT SCH ×3 (06:03→22:25)
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
--- NOTE | 2020-07-18 07:34 | EKG REPORT ---
SEVERITY:- ABNORMAL ECG - SINUS RHYTHM RIGHT ATRIAL ABNORMALITY CONSIDER LEFT VENTRICULAR HYPERTROPHY : Confirmed by: Andrew Meraz MD 18-Jul-2020 07:33:54
[2020-07-18 09:01] LABS: HEMATOCRIT 39.2 % (36.0-47.0); MEAN CORPUSCULAR HEMOGLOBIN 31.2 pg (27.0-33.4); MEAN CORPUSCULAR HGB CONC 33.5 g/dL (32.0-36.0); PLATELET COUNT 255 10^3/uL (150-450); RED BLOOD COUNT 4.21 10^6/uL (3.72-5.28); RED CELL DISTRIBUTION WIDTH 13.8 % (11.5-14.0); WHITE BLOOD COUNT 18.5 10^3/uL (4.0-10.5)
[2020-07-18 09:11] LABS: HEMOGLOBIN 13.1 g/dL (12.0-15.5); MEAN CORPUSCULAR VOLUME 93 fl (80-97)
[2020-07-18 09:12] LABS: ALBUMIN 3.3 g/dL (3.5-5.0); ALKALINE PHOSPHATASE 67 U/L (38-126); ASPARTATE AMINO TRANSFERASE 55 U/L (14-36); BILIRUBIN,TOTAL 0.6 mg/dL (0.2-1.3); BLOOD UREA NITROGEN 19 mg/dL (7-20); CALCIUM 8.2 mg/dL (8.4-10.2); GLUCOSE 130 mg/dL (75-110); TOTAL PROTEIN 5.6 g/dL (6.3-8.2)
[2020-07-18 09:18] LABS: CHLORIDE 99 mmol/L (98-107)
[2020-07-18] MEDS ORDERED: ASPIRIN 300 MG SUPP, RECTAL PR ONE (09:32)
[2020-07-18 09:34] LABS: ANION GAP 4 (5-19); CARBON DIOXIDE 35 mmol/L (22-30); POTASSIUM 4.5 mmol/L (3.6-5.0)
[2020-07-18] MEDS ORDERED: LEVALBUTEROL HCL NEB 1.25 MG/3 ML AMPUL NEB PRN (09:34)
--- NOTE | 2020-07-18 09:55 | PDOC PROGRESS REPORT ---
Subjective Progress Note for:: 07/18/20 Subjective:: Patient with dysarthria and mild expressive aphasia. She also exhibits confusion. She does have a very dry mouth. There is a dense right hemiplegia as well. She is currently on BiPAP but tolerated nasal cannula during this encounter. Reason For Visit: ACUTE RESPIRATORY ACIDOSIS,ALTERED MENTAL STATUS, Physical Exam Vital Signs: Temp Pulse Resp BP Pulse Ox 99.1 F 71 15 147/87 H 99 07/18/20 07:10 07/18/20 08:34 07/18/20 08:38 07/18/20 08:38 07/18/20 08:38 Intake & Output 07/17/20 07/18/20 07/19/20 06:59 06:59 06:59 Intake Total 3007 Output Total 1000 Balance 2006 Weight 43.7 kg General appearance: PRESENT: cooperative - Cooperates to the best of her ability, mild distress - Mild to moderate distress, thin, well-developed Head exam: PRESENT: atraumatic, normocephalic Eye exam: PRESENT: conjunctiva pink, EOMI, scleral icterus Ear exam: PRESENT: normal external ear exam. ABSENT: bleeding, drainage Mouth exam: PRESENT: dry mucosa, tongue midline Teeth exam: PRESENT: poor dentation Neck exam: PRESENT: other - Incision consistent with thyroidectomy. ABSENT: JVD, lymphadenopathy Respiratory exam: PRESENT: prolonged expiratory phas, rhonchi - Coarse rhonchorous breath sounds especially left side, symmetrical, wheezes - Occasional expiratory wheeze. ABSENT: rales, tachypnea Cardiovascular exam: PRESENT: RRR, +S1, +S2. ABSENT: bradycardia, diastolic murmur, irregular rhythm, systolic murmur, tachycardia GI/Abdominal exam: PRESENT: diminished bowel sounds, soft, tenderness - Nonspecific tenderness across lower abdomen. ABSENT: distended, guarding Rectal exam: PRESENT: deferred Gentrourinary exam: PRESENT: indwelling catheter Extremities exam: PRESENT: other - Decreased muscle mass. ABSENT: pedal edema Neurological exam: PRESENT: alert, awake, oriented to person, oriented to place, oriented to situation, CN II-XII grossly intact, aphasic - Word finding difficulties including her doctor's name and answers to fairly simple questions.. ABSENT: motor sensory deficit - Dense right hemiplegia. Minimal ability to monogram technician with the right hand. Unable to hold arm off the bed. Unable to lift right leg or carry out plantar or dorsiflexion. 2+ patellar reflexes bilateral Psychiatric exam: PRESENT: anxious - Appears anxious and frustrated, flat affect Focused psych exam: ABSENT: delusional, paranoid, restlessness Skin exam: PRESENT: dry, warm, other - Right mid back is a partial-thickness wound. It appears to be more of a shearing injury than a pressure ulcer. Results Laboratory Results: 07/18/20 08:34 07/17/20 07/17/20 07/17/20 17:50 17:50 17:50 WBC 19.8 H RBC 5.15 Hgb 16.1 H Hct 50.9 H MCV 99 H D MCH 31.3 MCHC 31.7 L RDW 14.5 H Plt Count 343 Seg Neutrophils % 87.1 H Carbonic Acid HCO3/H2CO3 Ratio ABG pH ABG pCO2 ABG pO2 ABG HCO3 ABG O2 Saturation ABG Base Excess VBG pH VBG pCO2 VBG HCO3 VBG Base Excess FiO2 Sodium 137.8 Potassium 5.6 H Chloride 94 L Carbon Dioxide 25 Anion Gap 19 BUN 30 H Creatinine 1.49 H Est GFR ( Amer) 44 L Glucose 539 H* Lactic Acid 5.8 H Calcium 9.4 Phosphorus 9.5 H Magnesium 3.0 H Total Bilirubin 0.5 AST 46 H Alkaline Phosphatase 113 Total Protein 7.6 Albumin 5.0 TSH Free T4 Urine Color Urine Appearance Urine pH Ur Specific [place] Urine Protein Urine Glucose (UA) Urine Ketones Urine Blood Urine Nitrite Ur Leukocyte Esterase Urine WBC (Auto) Urine RBC (Auto) 07/17/20 07/17/20 07/17/20 17:50 17:50 18:00 WBC RBC Hgb Hct MCV MCH MCHC RDW Plt Count Seg Neutrophils % Carbonic Acid HCO3/H2CO3 Ratio ABG pH ABG pCO2 ABG pO2 ABG HCO3 ABG O2 Saturation ABG Base Excess VBG pH 7.01 L* VBG pCO2 132.3 H* VBG HCO3 32.8 H VBG Base Excess -2.9 FiO2 Sodium Potassium Chloride Carbon Dioxide Anion Gap BUN Creatinine Est GFR ( Amer) Glucose Lactic Acid Calcium Phosphorus Magnesium Total Bilirubin AST Alkaline Phosphatase Total Protein Albumin TSH 13.10 H Free T4 1.01 Urine Color STRAW Urine Appearance CLEAR Urine pH 7.0 Ur Specific [place] 1.009 Urine Protein 30 H Urine Glucose (UA) >=500 H Urine Ketones NEGATIVE Urine Blood SMALL H Urine Nitrite NEGATIVE Ur Leukocyte Esterase NEGATIVE Urine WBC (Auto) 1 Urine RBC (Auto) 1 07/17/20 07/18/20 21:51 08:34 WBC 18.5 H RBC 4.21 Hgb 13.1 D Hct 39.2 MCV 93 D MCH 31.2 MCHC 33.5 RDW 13.8 Plt Count 255 Seg Neutrophils % Carbonic Acid 1.75 H HCO3/H2CO3 Ratio 18:1 ABG pH 7.37 ABG pCO2 58.2 H ABG pO2 63.5 L ABG HCO3 32.8 H ABG O2 Saturation 91.2 L ABG Base Excess 5.8 VBG pH VBG pCO2 VBG HCO3 VBG Base Excess FiO2 28% Sodium Potassium Chloride Carbon Dioxide Anion Gap BUN Creatinine Est GFR ( Amer) Glucose Lactic Acid Calcium Phosphorus Magnesium Total Bilirubin AST Alkaline Phosphatase Total Protein Albumin TSH Free T4 Urine Color Urine Appearance Urine pH Ur Specific [place] Urine Protein Urine Glucose (UA) Urine Ketones Urine Blood Urine Nitrite Ur Leukocyte Esterase Urine WBC (Auto) Urine RBC (Auto) 07/17/20 07/17/20 07/18/20 17:50 17:50 02:19 Creatine Kinase 128 Troponin I 0.050 0.201 NT-Pro-B Natriuret Pep 279 H 07/18/20 08:34 Creatine Kinase Troponin I 0.114 NT-Pro-B Natriuret Pep Impressions: Cervical Spine CT 07/17/20 17:51 IMPRESSION: No acute fracture or dislocation of the cervical spine. Head CT 07/17/20 17:51 IMPRESSION: NO ACUTE INTRACRANIAL IMAGING FINDINGS. EVIDENCE OF ACUTE STROKE: NO. Chest X-Ray 07/17/20 20:18 IMPRESSION: No evidence of acute cardiopulmonary disease. Assessment and Plan - Diagnosis (1) Acute on chronic respiratory failure with hypoxia and hypercapnia Is this a current diagnosis for this admission?: Yes (2) Acute ischemic stroke Is this a current diagnosis for this admission?: Yes (3) COPD with acute bronchitis Is this a current diagnosis for this admission?: Yes (4) Loss of consciousness Is this a current diagnosis for this admission?: Yes (5) Methadone dependence Is this a current diagnosis for this admission?: Yes (6) Cigarette nicotine dependence Is this a current diagnosis for this admission?: Yes (7) Hypothyroidism associated with surgical procedure Is this a current diagnosis for this admission?: Yes (8) Lactic acidemia Is this a current diagnosis for this admission?: Yes (9) Elevated troponin Is this a current diagnosis for this admission?: Yes (10) Dehydration Is this a current diagnosis for this admission?: Yes (11) Open back wound Qualifiers: Encounter type: initial encounter Laterality: right Qualified Code(s): S21.201A - Unspecified open wound of right back wall of thorax without penetration into thoracic cavity, initial encounter Is this a current diagnosis for this admission?: Yes - Plan Summary Summary: Patient will be admitted to [facility] where she will receive routine supportive and symptomatic cares. She will be continued on BiPAP with supplemental oxygen as needed to maintain an adequate oxygen saturation and alleviate her respiratory acidosis. She will be monitored closely with every 4 hour neurochecks and vital signs as well as telemetry monitoring. CBCs, metabolic profiles, ABGs and additional laboratory and/or radiographic evaluations will be obtained as needed. She received Ativan 1 mg IV every 4 hours as needed for agitation or restlessness. A registered dietitian consultation will be obtained. Every 4 hour Accu-Cheks will be obtained with sliding scale insulin for hyperglycemia and a hypoglycemic protocol in place. 07/17/2020 Acute ischemic stroke-the patient has a dense right hemiplegia consistent with acute ischemic stroke. Diagnostic imaging revealed what appears to be a staple or other metal object in the right side of the neck. This would preclude an MRI study. We will obtain carotid ultrasounds and possibly an echocardiogram. I have ordered an aspirin suppository now and await swallowing evaluation before proceeding with oral medications such as statin therapy. Acute on chronic respiratory failure with hypoxia and hypercapnia-markedly elevated PCO2 on admission. This has improved significantly with BiPAP. The patient is likely at her baseline PCO2 level. Possible bronchitis with associated COPD and I will start intravenous doxycycline. I have ordered a sputum specimen but it is unlikely that the patient will be able to produce a good specimen due to overall weakness. Keep oxygen saturations in the 90 to 94% range. Lactic acidemia secondary to hypoxia and hypercapnia Elevated troponin likely secondary to hypoxia Nicotine addiction-nicotine patch Hypothyroidism with history of thyroidectomy-TSH is elevated at 13. Increase levothyroxine to 125 mcg daily. Back wound-likely from shearing. Bacitracin and simple dressing change daily. Severe protein calorie malnutrition-dietitian has been consulted Dehydration-IV fluids and monitor serum chemistries as well as volume status - Time Time Spent with patient: 25-34 minutes Smoking Cessation Education: 3 to 10 minutes Medications reviewed and adjusted accordingly: Yes Anticipated Discharge Disposition: Unknown Anticipated Discharge Timeframe: Unknown
[2020-07-18] MEDS: PANTOPRAZOLE SODIUM 40 MG VIAL IV SCH ×2 (10:22→22:25)
[2020-07-18] MEDS: ASPIRIN 81 MG TABLET, ENT COATED PO SCH (10:22)
[2020-07-18] MEDS: DOXYCYCLINE HYCLATE 100 MG in DEXTROSE 5%-WATER 250 ML IV SCH ×2 (12:01→22:36)
[2020-07-18] MEDS: BACITRACIN ZINC OINTMENT 15 GM TP SCH (12:03)
[2020-07-18] MEDS: IPRATROPIUM/ALBUTEROL 0.5-2.5 MG/3 ML AMPUL NEB SCH ×2 (13:50→20:43)
--- NOTE | 2020-07-18 14:51 | RADIOLOGY REPORT (SQ) ---
EXAM DESCRIPTION: CAROTID DOPPLER IMAGES COMPLETED DATE/TIME: 07/18/2020 2:44 pm REASON FOR STUDY: stroke COMPARISON: None. TECHNIQUE: Grayscale ultrasound, Doppler velocity and spectra, and color Doppler images acquired of the extra-cranial carotid and vertebral arteries. Images stored on PACS. LIMITATIONS: None. FINDINGS: RIGHT CAROTID CCA Velocities: Within normal limits. ICA Velocities Peak systolic 0.84 m/s. End diastolic 0.32 m/s. Proximal ICA/CCA peak systolic ratio 1.04. Minimal complex plaque in the proximal ICA. LEFT CAROTID CCA Velocities: Within normal limits. ICA Velocities Peak systolic 1.01 m/s. End diastolic 0.36 m/s. Proximal ICA/CCA peak systolic ratio 0.91. Spectra normal. No significant plaque. VERTEBRAL ARTERIES: Antegrade flow. Normal waveforms. SUBCLAVIAN ARTERIES: No finding. OTHER: No other significant finding. IMPRESSION: NO HEMODYNAMICALLY SIGNIFICANT STENOSIS. COMMENT: Quality ID #[id number]: Velocity criteria are extrapolated from the diameter data as defined by t he Society of Radiologists in Ultrasound Consensus Conference. Radiology 2003: 229; 340-346. TECHNICAL DOCUMENTATION: JOB ID: [id number] 2010 [employer]- All Rights Reserved Reading location - IP/workstation name: [email or web address]
[2020-07-18 16:12] LABS: BLOOD UREA NITROGEN 12 mg/dL (7-20); CALCIUM 8.6 mg/dL (8.4-10.2); CARBON DIOXIDE 32 mmol/L (22-30); CHLORIDE 98 mmol/L (98-107); GLUCOSE 107 mg/dL (75-110); POTASSIUM 3.9 mmol/L (3.6-5.0)
[2020-07-18 16:13] LABS: ANION GAP 6 (5-19)
[2020-07-18] MEDS ORDERED: METHADONE HCL 1 MG/ML 30 ML BOTTLE PEG ONE (17:09)
[2020-07-18] MEDS ORDERED: METHADONE HCL 10 MG TABLET PEG ONE (17:30)
[2020-07-18] MEDS: BUDESONIDE NEB 0.5 MG/2 ML AMPUL NEB SCH (20:43)
[2020-07-19] MEDS: IPRATROPIUM/ALBUTEROL 0.5-2.5 MG/3 ML AMPUL NEB SCH ×4 (02:11→20:55)
[2020-07-19] MEDS: HEPARIN SOD (PORCINE) 5,000 UNIT/ML 1 ML VIAL SUBCUT SCH ×3 (06:01→21:38)
[2020-07-19] MEDS: LEVOTHYROXINE SODIUM 0.05 MG TABLET PO SCH (06:01)
[2020-07-19] MEDS: INSULIN LISPRO 100 UNIT/ML 3 ML VIAL SUBCUT SCH ×5 (07:16→22:00)
[2020-07-19] MEDS: BUDESONIDE NEB 0.5 MG/2 ML AMPUL NEB SCH ×2 (08:12→20:55)
--- NOTE | 2020-07-19 10:01 | PDOC PROGRESS REPORT ---
Subjective Progress Note for:: 07/19/20 Subjective:: Patient is resting comfortably in bed. Had modified barium swallow earlier and occupational therapy is about to work with the patient. The patient's daughter is at the bedside. Reason For Visit: Acute ischemic stroke Acute respiratory failure Leukocytosis, Physical Exam Vital Signs: Temp Pulse Resp BP Pulse Ox 99.2 F 79 16 139/82 H 94 07/19/20 03:24 07/19/20 08:15 07/19/20 08:15 07/19/20 08:00 07/19/20 08:15 Intake & Output 07/18/20 07/19/20 07/20/20 06:59 06:59 06:59 Intake Total 3007 1250 250 Output Total 1000 3325 Balance 2006 250 Weight 43.7 kg 42.8 kg 42.8 kg General appearance: PRESENT: no acute distress, cooperative, thin, well- developed Head exam: PRESENT: atraumatic, normocephalic Ear exam: PRESENT: normal external ear exam. ABSENT: bleeding, drainage Mouth exam: PRESENT: dry mucosa, tongue midline Respiratory exam: PRESENT: clear to auscultation awais, symmetrical, unlabored. ABSENT: rales, rhonchi, tachypnea, wheezes Cardiovascular exam: PRESENT: RRR, +S1, +S2. ABSENT: bradycardia, diastolic murmur, irregular rhythm, systolic murmur, tachycardia GI/Abdominal exam: PRESENT: soft, other - G-tube. ABSENT: distended, tenderness Rectal exam: PRESENT: deferred Gentrourinary exam: PRESENT: indwelling catheter Extremities exam: PRESENT: other - Decreased muscle mass. ABSENT: pedal edema Musculoskeletal exam: ABSENT: ambulatory Neurological exam: PRESENT: alert, awake, motor sensory deficit - Still with dense right hemiplegia, aphasic - Improved with regard to word finding and communicating, other - Mild dysarthria Psychiatric exam: PRESENT: flat affect. ABSENT: agitated, anxious Focused psych exam: ABSENT: delusional, paranoid, restlessness Skin exam: PRESENT: dry, normal color, warm. ABSENT: rash Results Laboratory Results: 07/18/20 08:34 07/18/20 15:14 07/18/20 07/18/20 07/18/20 08:34 15:14 15:14 Sodium 135.8 L Potassium 3.9 Chloride 98 Carbon Dioxide 32 H Anion Gap 6 BUN 12 Creatinine 0.52 Est GFR ( Amer) > 60 Glucose 107 Lactic Acid 1.1 Calcium 8.6 TSH 1.83 07/17/20 07/17/20 07/18/20 17:50 17:50 02:19 Creatine Kinase 128 Troponin I 0.050 0.201 NT-Pro-B Natriuret Pep 279 H 07/18/20 07/18/20 08:34 15:14 Creatine Kinase Troponin I 0.114 0.069 NT-Pro-B Natriuret Pep Impressions: Cervical Spine CT 07/17/20 17:51 IMPRESSION: No acute fracture or dislocation of the cervical spine. Head CT 07/17/20 17:51 IMPRESSION: NO ACUTE INTRACRANIAL IMAGING FINDINGS. EVIDENCE OF ACUTE STROKE: NO. Chest X-Ray 07/17/20 20:18 IMPRESSION: No evidence of acute cardiopulmonary disease. Carotid Doppler Study 07/18/20 09:22 IMPRESSION: NO HEMODYNAMICALLY SIGNIFICANT STENOSIS. Assessment and Plan - Diagnosis (1) Acute on chronic respiratory failure with hypoxia and hypercapnia Is this a current diagnosis for this admission?: Yes (2) Acute ischemic stroke Is this a current diagnosis for this admission?: Yes (3) COPD with acute bronchitis Is this a current diagnosis for this admission?: Yes (4) Loss of consciousness Is this a current diagnosis for this admission?: Yes (5) Methadone dependence Is this a current diagnosis for this admission?: Yes (6) Cigarette nicotine dependence Is this a current diagnosis for this admission?: Yes (7) Hypothyroidism associated with surgical procedure Is this a current diagnosis for this admission?: Yes (8) Lactic acidemia Is this a current diagnosis for this admission?: Yes (9) Elevated troponin Is this a current diagnosis for this admission?: Yes (10) Dehydration Is this a current diagnosis for this admission?: Yes (11) Open back wound Qualifiers: Encounter type: initial encounter Laterality: right Qualified Code(s): S21.201A - Unspecified open wound of right back wall of thorax without pe netration into thoracic cavity, initial encounter Is this a current diagnosis for this admission?: Yes - Plan Summary Summary: Patient will be admitted to [facility] where she will receive routine supportive and symptomatic cares. She will be continued on BiPAP with supplemental oxygen as needed to maintain an adequate oxygen saturation and alleviate her respiratory acidosis. She will be monitored closely with every 4 hour neurochecks and vital signs as well as telemetry monitoring. CBCs, metabolic profiles, ABGs and additional laboratory and/or radiographic evaluations will be obtained as needed. She received Ativan 1 mg IV every 4 hours as needed for agitation or restlessness. A registered dietitian consultation will be obtained. Every 4 hour Accu-Cheks will be obtained with sliding scale insulin for hyperglycemia a nd a hypoglycemic protocol in place. 07/17/2020 Acute ischemic stroke-the patient has a dense right hemiplegia consistent with acute ischemic stroke. Diagnostic imaging revealed what appears to be a staple or other metal object in the right side of the neck. This would preclude an MRI study. We will obtain carotid ultrasounds and possibly an echocardiogram. I have ordered an aspirin suppository now and await swallowing evaluation before proceeding with oral medications such as statin therapy. Acute on chronic respiratory failure with hypoxia and hypercapnia-markedly elevated PCO2 on admission. This has improved significantly with BiPAP. The patient is likely at her baseline PCO2 level. Possible bronchitis with associated COPD and I will start intravenous doxycycline. I have ordered a sputum specimen but it is unlikely that the patient will be able to produce a good specimen due to overall weakness. Keep oxygen saturations in the 90 to 94% range. Lactic acidemia secondary to hypoxia and hypercapnia Elevated troponin likely secondary to hypoxia Nicotine addiction-nicotine patch Hypothyroidism with history of thyroidectomy-TSH is elevated at 13. Increase levothyroxine to 125 mcg daily. Back wound-likely from shearing. Bacitracin and simple dressing change daily. Severe protein calorie malnutrition-dietitian has been consulted Dehydration-IV fluids and monitor serum chemistries as well as volume status Correction-the above note is actually from 07/18/2020 07/19/2020 Patient still with a dense right hemiplegia. Speech is improved. We will add aspirin, statin and maintain good blood pressure control. The patient is having a modified barium swallow today. Hypercapnia has resolved. We will need to monitor closely and not allow oxygen saturation to go above 94% unless the patient is on room air. Continue levothyroxine Continue wound care for back wound. Appreciate wound care consult We will institute dietitian recommendations when available. - Time Time Spent with patient: 15-24 minutes Medications reviewed and adjusted accordingly: Yes Anticipated Discharge Disposition: Intermediate Facility Anticipated Discharge Timeframe: within 72 hours
[2020-07-19] MEDS ORDERED: PROMETHAZINE HCL 6.25 MG/5 ML SYRUP 60 ML PEG PRN (10:03)
[2020-07-19] MEDS ORDERED: METHADONE HCL 1 MG/ML 30 ML BOTTLE PEG SCH (10:15)
[2020-07-19] MEDS: DOXYCYCLINE HYCLATE 100 MG in DEXTROSE 5%-WATER 250 ML IV SCH ×2 (10:29→21:39)
[2020-07-19] MEDS: PANTOPRAZOLE SODIUM 40 MG VIAL IV SCH ×2 (10:30→21:38)
[2020-07-19] MEDS: ASPIRIN 81 MG TABLET, ENT COATED PO SCH (10:30)
[2020-07-19] MEDS: METHADONE HCL 10 MG TABLET PEG SCH (10:30)
[2020-07-19] MEDS: BACITRACIN ZINC OINTMENT 15 GM TP SCH (10:43)
--- NOTE | 2020-07-19 11:07 | RADIOLOGY REPORT (SQ) ---
EXAM DESCRIPTION: COOKIE SWALLOW IMAGES COMPLETED DATE/TIME: 07/19/2020 9:31 am REASON FOR STUDY: CVA, history of head and neck cancer dysphagia COMPARISON: None. TECHNIQUE: Videofluoroscopic swallowing examination was performed in conjunction with speech patholo gy. Videofluoroscopic imaging was obtained and reviewed and these are the findings: RADIATION DOSE: 2.6 minutes of fluoroscopy was used. 1 images saved to PACS. LIMITATIONS: None FINDINGS: The patient was brought into the fluoro room and placed upright on a modified barium swall ow chair. The patient was then given multiple consistencies mixed with barium to swallow under live fluoroscopic video guidance. According to the Speech Pathologist there was trace laryngeal penetrati on without aspiration. IMPRESSION: TRACE LARYNGEAL PENETRATION WITHOUT ASPIRATION. PLEASE SEE SPEECH PATHOLOGIST REPORT FOR OTHER FINDINGS AND RECOMMENDATIONS. COMMENT: Quality ID [id number]: Final reports for procedures using fluoroscopy that document radiation exp osure indices, or exposure time and number of fluorographic images (if radiation exposure indices are not available) TECHNICAL DOCUMENTATION: JOB ID: [id number] 2010 [employer]- All Rights Reserved Reading location - IP/workstation name: [email or web address]
--- NOTE | 2020-07-19 14:23 | RADIOLOGY REPORT (SQ) ---
EXAM DESCRIPTION: CAROTID DOPPLER IMAGES COMPLETED DATE/TIME: 07/19/2020 1:50 pm REASON FOR STUDY: stroke COMPARISON: None. TECHNIQUE: Grayscale ultrasound, Doppler velocity and spectra, and color Doppler images acquired of the extra-cranial carotid and vertebral arteries. Images stored on PACS. LIMITATIONS: None. FINDINGS: RIGHT CAROTID CCA Velocities: Within normal limits. ICA Velocities Peak systolic 96 cm/s. End diastolic 32 cm/s. Proximal ICA/CCA peak systolic ratio 1.2. Mild intimal thickening. There are some small plaques. LEFT CAROTID CCA Velocities: Within normal limits. ICA Velocities Peak systolic 89 cm/s. End diastolic 34 cm/s. Proximal ICA/CCA peak systolic ratio 0.8. Mild intimal thickening. There are some small plaques in the common carotid. VERTEBRAL ARTERIES: Antegrade flow. Normal waveforms. SUBCLAVIAN ARTERIES: No finding. OTHER: No other significant finding. IMPRESSION: NO HEMODYNAMICALLY SIGNIFICANT STENOSIS. COMMENT: Quality ID #[id number]: Velocity criteria are extrapolated from the diameter data as defined by t he Society of Radiologists in Ultrasound Consensus Conference. Radiology 2003: 229; 340-346. TECHNICAL DOCUMENTATION: JOB ID: [id number] 2010 [employer]- All Rights Reserved Reading location - IP/workstation name: [email or web address]
--- NOTE | 2020-07-19 16:03 | ST Inp Modified Barium Swallow ---
Medical Diagnosis - Medical Diagnoses Medical Diagnosis Description & ICD-10 Code(s): acute ischemic CVA, Dysphagia, R13.14 - ICD-10 Tx Diagnosis Coding (1) Acute ischemic stroke ICD-10 Code(s): I63.9 - CEREBRAL INFARCTION, UNSPECIFIED ST Inpatient [facility] [place] - General Date: 07/19/20 Date of Onset: 07/17/20 - History -: Medical - per EMR: patient admitted 07/17 with acute delirium secondary to opiates after being found down and unresponsive at home. Prior medical history of postradiation osteonecrosis of the haw, dysphagia, thyroid cancer. Patient now exhibiting stroke-like symptoms. Patient failed nursing swallow screen due to remote history of head/neck cancer with neck dissection and radiation treatment. Currently NPO. Patient does have PEG placed, reports that she uses PEG as well as PO at home. Medications: Medications Reviewed Allergies: No known allergies - Subjective Current Nutritional Means: PEG Current PO Diet: N/A (NPO) Current Symptoms: Coughing, other - hx of h&n cancer Pain: Patient reports, 0/5 - Objective Assessment: Upright, Left Lateral - Food Trials Food Trials Used: Thin liquids, Pureed, Regular The Patient: Was Able to Self Feed - Assessment Labial Function: Within Normal Limits Lingual Function: Within Normal Limits Mandibular Function: Within Normal Limits Velo-Pharyngeal Function: Unremarkable Laryngeal Function: hoarse - Pharyngeal Stage Initiation of Pharyngeal Stage: Normal Decreased Laryngeal Elevation: Yes - mild Reduced Velo-Pharyngeal Closure: no Reduced Pressure Generation: Yes - moderate Reduced Tongue Base Retraction: No Pre-Swallowing Pooling in Valleculae: Mild Pre-Swallowing Pooling in Pyriforms: None Reduced Thyro-Hyiod Approximation: No Reduced Epiglottic Excursion: Yes - moderate Reduced Pharyngeal Peristalsis: No Multiple Swallows With: Cleared w/ Liquid Assist Post Swallow Residuals in Valleculae: Moderate Post Swallow Residuals in Pyriforms: Mild - Impression/Summary Laryngeal Penetration: Yes - trace penetration with sequential sips of thin liquid, also with residuals from valleculae Tracheal Aspiration: no Patient Presents With: Pharyngeal stage dysph., Mild-Moderate Risk of Aspiration: Mild - Recommendations Solid Diet Recommendations: Mechanical Soft, Ground Meat Liquid Diet Recommendations: Thin Strict Aspitarion Precautions: Yes Dysphagia Therapy with DIRECTOR DENTAL SERVICES: Follow Up PRN Recommended Techniques: Fully Upright During Meal, Small Bites and Sips, Alternate Bites/Sips Other Recommendations: Recommend following PRN to ensure tolerating diet. Also recommend speech and language assessment due to recent CVA. Discussed diet recommendations with physician, diet order placed by therapist per Dr. Bass's direction. - Time Total Time: 30 Total Timed Minutes: 30
[2020-07-19] MEDS: ATORVASTATIN CALCIUM 40 MG TABLET PO SCH (21:38)
[2020-07-19] MEDS: DEXTROSE 5%-LACTATED RINGERS 1,000 ML IV PRN (21:44)
[2020-07-20] MEDS: INSULIN LISPRO 100 UNIT/ML 3 ML VIAL SUBCUT SCH ×6 (02:00→21:43)
[2020-07-20] MEDS: IPRATROPIUM/ALBUTEROL 0.5-2.5 MG/3 ML AMPUL NEB SCH ×4 (02:12→20:04)
[2020-07-20] MEDS: HEPARIN SOD (PORCINE) 5,000 UNIT/ML 1 ML VIAL SUBCUT SCH ×3 (05:58→21:16)
[2020-07-20] MEDS: LEVOTHYROXINE SODIUM 0.05 MG TABLET PO SCH (05:58)
[2020-07-20 06:51] LABS: ABSOLUTE EOSINOPHILS # (AUTO) 0.2 10^3/uL (0.0-0.6); ABSOLUTE MONOCYTES (AUTO) 0.9 10^3/uL (0.1-1.4); ABSOLUTE NEUT (AUTO) 8.7 10^3/uL (1.7-8.2); BASOPHILS % (AUTO) 0.4 % (0-2); HEMATOCRIT 37.4 % (36.0-47.0); HEMOGLOBIN 12.9 g/dL (12.0-15.5); LYMPHOCYTES % (AUTO) 8.9 % (13-45); MEAN CORPUSCULAR HEMOGLOBIN 31.8 pg (27.0-33.4); MEAN CORPUSCULAR HGB CONC 34.4 g/dL (32.0-36.0); MEAN CORPUSCULAR VOLUME 92 fl (80-97); MONOCYTES % (AUTO) 8.3 % (3-13); PLATELET COUNT 220 10^3/uL (150-450); RED BLOOD COUNT 4.05 10^6/uL (3.72-5.28); RED CELL DISTRIBUTION WIDTH 13.8 % (11.5-14.0); SEGMENTED NEUTROPHILS % (AUTO) 80.4 % (42-78); TOTAL CELLS COUNTED % (AUTO) 100 %; WHITE BLOOD COUNT 10.8 10^3/uL (4.0-10.5)
[2020-07-20 07:20] LABS: ANION GAP 7 (5-19); BLOOD UREA NITROGEN 17 mg/dL (7-20); CALCIUM 8.5 mg/dL (8.4-10.2); CARBON DIOXIDE 31 mmol/L (22-30); CHLORIDE 99 mmol/L (98-107); GLUCOSE 142 mg/dL (75-110); POTASSIUM 4.2 mmol/L (3.6-5.0)
[2020-07-20] MEDS: BUDESONIDE NEB 0.5 MG/2 ML AMPUL NEB SCH ×2 (08:31→20:04)
--- NOTE | 2020-07-20 08:48 | EKG REPORT ---
SEVERITY:- ABNORMAL ECG - SINUS RHYTHM PROBABLE LEFT ATRIAL ABNORMALITY PROBABLE LEFT VENTRICULAR HYPERTROPHY : Confirmed by: Andrew Meraz MD 20-Jul-2020 08:46:34
[2020-07-20] MEDS: METHADONE HCL 10 MG TABLET PEG SCH (09:17)
[2020-07-20] MEDS: ASPIRIN 81 MG TABLET, ENT COATED PO SCH (09:18)
[2020-07-20] MEDS: PANTOPRAZOLE SODIUM 40 MG VIAL IV SCH ×2 (09:18→21:17)
[2020-07-20] MEDS: ASCORBIC ACID 500 MG TABLET PEG SCH ×2 (09:20→18:22)
[2020-07-20] MEDS: THIAMINE HCL 100 MG TABLET PEG SCH (09:20)
[2020-07-20] MEDS: DOXYCYCLINE HYCLATE 100 MG in DEXTROSE 5%-WATER 250 ML IV SCH ×2 (09:24→21:16)
[2020-07-20] MEDS: ZINC SULFATE 220 MG CAPSULE PEG SCH (10:59)
--- NOTE | 2020-07-20 12:02 | XCELERA REPORT ---
[address] [address] Transthoracic Echocardiogram Report Name: JULIET GOMEZ Age: 55 yrs Gender: Female : 1965 Patient Status: Inpatient Patient Location: [address] [place] [address] Study Date: 07/19/2020 10:14 AM History: MARLENY Height: 65 in Weight: 94 lb BSA: 1.4 m2 Procedure: A complete two-dimensional transthoracic echocardiogram was performed (2D, M-mode, spectral and color flow Doppler). The study was technically difficult with many images being suboptimal in quality. Reason For Study: stroke Previous Evaluation: No previous studies were available. History: CVA. Ordering Physician: FREDERIC GIFFORD Performed By: Josselin Mejias Interpretation Summary Left ventricular systolic function is normal. The Ejection Fraction estimate is 55-60% The right ventricle is normal in size and function. There is a trace amount of mitral regurgitation There is no aortic valve stenosis There is a trace amount of aortic regurgitation There is a trace amount of tricuspid regurgitation Tricuspid regurgitation jet envelope not well defined to measure RV systolic pressure accurately. Chiari network (normal variant) is noted. There is no pericardial effusion. MMode/2D Measurements & Calculations RVDd: 1.5 cm LVIDd: 4.5 cm FS: 27.7 % Ao root diam: 3.2 cm IVSd: 0.81 cm LVIDs: 3.3 cm EDV(Teich): 93.2 ml Ao root area: 7.9 cm2 LVPWd: 0.77 cm ESV(Teich): 43.0 ml EF(Teich): 53.9 % Doppler Measurements & Calculations MV E max carmella: MV dec slope: Ao V2 max: LV V1 max P.3 cm/sec 530.7 cm/sec2 146.1 cm/sec 5.2 mmHg MV A max carmella: MV dec time: 0.16 secAo max PG: LV V1 max: 116.5 cm/sec 8.5 mmHg 114.1 cm/sec MV E/A: 0.72 PA V2 max: 104.5 cm/sec PA max P.4 mmHg Left Ventricle The left ventricle is normal in size. There is borderline concentric left ventricular hypertrophy. Left ventricular systolic function is normal. The Ejection Fraction estimate is 55-60%. Doppler measurements suggest impaired left ventricular relaxation, which is associated with grade I/IV or mild diastolic dysfunction. No regional wall motion abnormalities noted. Right Ventricle The right ventricle is normal in size and function. Atria The right atrium is normal. Chiari network (normal variant) is noted. The left atrial size is normal. The interatrial septum is intact with no evidence for an atrial septal defect. The thickening of interatrial septum suggests lipomatous hypertrophy. Mitral Valve There is no mitral valve stenosis. There is a trace amount of mitral regurgitation. Aortic Valve The aortic valve is sclerotic and shows some degree of functional abnormality. The aortic valve opens well. There is no aortic valve stenosis. There is a trace amount of aortic regurgitation. Tricuspid Valve The tricuspid valve is normal in structure and function. There is no tricuspid stenosis. There is a trace amount of tricuspid regurgitation. Tricuspid regurgitation jet envelope not well defined to measure RV systolic pressure accurately. Pulmonic Valve The pulmonic valve is not well seen, but is grossly normal. There is no pulmonic valvular stenosis. There is a trace or physiologic amount of pulmonic regurgitation. Great Vessels The aortic root is normal size. Effusions There is no pericardial effusion. : FREDERIC GIFFORD Anil
--- NOTE | 2020-07-20 18:13 | PDOC PROGRESS REPORT ---
Subjective Progress Note for:: 07/20/20 Reason For Visit: ACUTE RESPIRATORY ACIDOSIS,ALTERED MENTAL STATUS, Physical Exam Vital Signs: Temp Pulse Resp BP Pulse Ox 98.1 F 81 18 108/74 96 07/20/20 03:08 07/20/20 14:10 07/20/20 14:10 07/20/20 04:00 07/20/20 14:10 Intake & Output 07/19/20 07/20/20 07/21/20 06:59 06:59 06:59 Intake Total 2250 986 1360 Output Total 3325 1375 1200 Balance -1075 -389 160 Weight 42.8 kg 45 kg General appearance: PRESENT: cooperative, mild distress, thin Head exam: PRESENT: atraumatic, normocephalic Ear exam: PRESENT: normal external ear exam. ABSENT: bleeding, drainage Teeth exam: PRESENT: poor dentation Neck exam: ABSENT: carotid bruit, JVD, lymphadenopathy Respiratory exam: PRESENT: clear to auscultation awais, symmetrical, unlabored. ABSENT: rales, rhonchi, tachypnea, wheezes Cardiovascular exam: PRESENT: RRR, +S1, +S2. ABSENT: bradycardia, diastolic murmur, irregular rhythm, systolic murmur, tachycardia GI/Abdominal exam: PRESENT: normal bowel sounds, soft, other - G-tube. ABSENT: tenderness Rectal exam: PRESENT: deferred Extremities exam: ABSENT: pedal edema Neurological exam: PRESENT: alert, awake, oriented to person, oriented to place, oriented to time, oriented to situation, motor sensory deficit - Patient can shrug her right shoulder. 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 She cannot flex or extend the elbow. She can elevate her right leg and hold it off of the bed and has 3/5 plantar and dorsiflexion., other - Still with slight dysarthria. ABSENT: altered Psychiatric exam: PRESENT: depressed. ABSENT: agitated, anxious Results Laboratory Results: 07/20/20 06:28 07/20/20 06:28 07/20/20 07/20/20 06:28 06:28 WBC 10.8 H RBC 4.05 Hgb 12.9 Hct 37.4 MCV 92 MCH 31.8 MCHC 34.4 RDW 13.8 Plt Count 220 Seg Neutrophils % 80.4 H Sodium 136.6 L Potassium 4.2 Chloride 99 Carbon Dioxide 31 H Anion Gap 7 BUN 17 Creatinine 0.55 Est GFR ( Amer) > 60 Glucose 142 H Calcium 8.5 Magnesium 1.8 07/17/20 07/17/20 07/18/20 17:50 17:50 02:19 Creatine Kinase 128 Troponin I 0.050 0.201 NT-Pro-B Natriuret Pep 279 H 07/18/20 07/18/20 08:34 15:14 Creatine Kinase Troponin I 0.114 0.069 NT-Pro-B Natriuret Pep Impressions: Cervical Spine CT 07/17/20 17:51 IMPRESSION: No acute fracture or dislocation of the cervical spine. Head CT 07/17/20 17:51 IMPRESSION: NO ACUTE INTRACRANIAL IMAGING FINDINGS. EVIDENCE OF ACUTE STROKE: NO. Chest X-Ray 07/17/20 20:18 IMPRESSION: No evidence of acute cardiopulmonary disease. Carotid Doppler Study 07/19/20 00:00 IMPRESSION: NO HEMODYNAMICALLY SIGNIFICANT STENOSIS. Modified Barium Swallow 07/19/20 00:00 IMPRESSION: TRACE LARYNGEAL PENETRATION WITHOUT ASPIRATION. PLEASE SEE SPEECH PATHOLOGIST REPORT FOR OTHER FINDINGS AND RECOMMENDATIONS. Assessment and Plan - Diagnosis (1) Acute on chronic respiratory failure with hypoxia and hypercapnia Is this a current diagnosis for this admission?: Yes (2) Acute ischemic stroke Is this a current diagnosis for this admission?: Yes (3) COPD with acute bronchitis Is this a current diagnosis for this admission?: Yes (4) Loss of consciousness Is this a current diagnosis for this admission?: Yes (5) Methadone dependence Is this a current diagnosis for this admission?: Yes (6) Cigarette nicotine dependence Is this a current diagnosis for this admission?: Yes (7) Hypothyroidism associated with surgical procedure Is this a current diagnosis for this admission?: Yes (8) Lactic acidemia Is this a current diagnosis for this admission?: Yes (9) Elevated troponin Is this a current diagnosis for this admission?: Yes (10) Dehydration Is this a current diagnosis for this admission?: Yes (11) Open back wound Qualifiers: Encounter type: initial encounter Laterality: right Qualified Code(s): S21.201A - Unspecified open wound of right back wall of thorax without penetration into thoracic cavity, initial encounter Is this a current diagnosis for this admission?: Yes (12) Acute bronchitis due to Haemophilus influenzae Is this a current diagnosis for this admission?: Yes - Plan Summary Summary: Patient will be admitted to [facility] where she will receive routine supportive and symptomatic cares. She will be continued on BiPAP with supplemental oxygen as needed to maintain an adequate oxygen saturation and alleviate her respiratory acidosis. She will be monitored closely with every 4 hour neurochecks and vital signs as well as telemetry monitoring. CBCs, metabolic profiles, ABGs and additional laboratory and/or radiographic evaluations will be obtained as needed. She received Ativan 1 mg IV every 4 hours as needed for agitation or restlessness. A registered dietitian consultation will be obtained. Every 4 hour Accu-Cheks will be obtained with sliding scale insulin for hyperglycemia and a hypoglycemic protocol in place. 07/17/2020 Acute ischemic stroke-the patient has a dense right hemiplegia consistent with a cute ischemic stroke. Diagnostic imaging revealed what appears to be a staple or other metal object in the right side of the neck. This would preclude an MRI study. We will obtain carotid ultrasounds and possibly an echocardiogram. I have ordered an aspirin suppository now and await swallowing evaluation before proceeding with oral medications such as statin therapy. Acute on chronic respiratory failure with hypoxia and hypercapnia-markedly elevated PCO2 on admission. This has improved significantly with BiPAP. The patient is likely at her baseline PCO2 level. Possible bronchitis with a ssociated COPD and I will start intravenous doxycycline. I have ordered a sputum specimen but it is unlikely that the patient will be able to produce a good specimen due to overall weakness. Keep oxygen saturations in the 90 to 94% range. Lactic acidemia secondary to hypoxia and hypercapnia Elevated troponin likely secondary to hypoxia Nicotine addiction-nicotine patch Hypothyroidism with history of thyroidectomy-TSH is elevated at 13. Increase levothyroxine to 125 mcg daily. Back wound-likely from shearing. Bacitracin and simple dressing change daily. Severe protein calorie malnutrition-dietitian has been consulted Dehydration-IV fluids and monitor serum chemistries as well as volume status Correction-the above note is actually from 07/18/2020 07/19/2020 Patient still with a dense right hemiplegia. Speech is improved. We will add aspirin, statin and maintain good blood pressure control. The patient is having a modified barium swallow today. Hypercapnia has resolved. We will need to monitor closely and not allow oxygen saturation to go above 94% unless the patient is on room air. Continue levothyroxine Continue wound care for back wound. Appreciate wound care consult We will institute dietitian recommendations when available. 07/20/2020 The patient is upset at the thought of short-term long term. She is worried that her daughter is going to leave her there. She has regained significant function in her right leg. I explained that this is an excellent benchmark of progress. I believe she is most frustrated with her right arm/hand. I explained to her that recovery can take months but it will take hard work. I explained that going to the short-term skilled rehab is the best chance she has of maximizing her recovery. She was tearful but I think underst ands. We will continue aspirin therapy as well as blood pressure control and statin therapy. The patient was out of the window for TPA once the stroke was identified. No anticoagulation but rather antiplatelet therapy alone. Sputum culture was positive for Haemophilus influenza. Antibiotic therapy has been very effective in resolving this infection. Back wound is stable. Blood pressures are still slightly higher than desired. I will add low-dose KARLA inhibitor. Hypothyroidism-continue levothyroxine Nutrition-I reviewed the dietitians suggestions. We will change the Jevity to 8 ounces every 6 hours and institute 120 mL water flushes every 4 hours. - Time Time Spent with patient: 15-24 minutes Medications reviewed and adjusted accordingly: Yes Anticipated Discharge Disposition: [facility] Anticipated Discharge Timeframe: within 72 hours
[2020-07-20] MEDS: DEXTROSE 5%-LACTATED RINGERS 1,000 ML IV PRN (18:22)
--- NOTE | 2020-07-20 20:29 | XCELERA REPORT ---
[address] [address] Transthoracic Echocardiogram Report Name: JULIET GOMEZ Age: 55 yrs Gender: Female : 1965 Patient Status: Inpatient Patient Location: [address] [place], [place] [address] Study Date: 07/20/2020 03:25 PM History: MARLENY Bubble study Height: 65 in Weight: 99 lb BSA: 1.5 m2 Procedure: A limited two-dimensional transthoracic echocardiogram was performed (2D). Reason For Study: LIMITED ECHO FOR RA EVAL AND BUBBLE STUDY CVA Ordering Physician: KO BARKSDALE Performed By: Ludmila Jacob Interpretation Summary Left ventricular systolic function is normal. The right ventricle is normal in size and function. The right atrium is normal. Chiari network (normal variant) is noted. A prominent eustachian valve is noted. Injection of contrast documented an interatrial shunt. Left Ventricle The left ventricle is grossly normal size. Left ventricular systolic function is normal. Right Ventricle The right ventricle is normal in size and function. Atria The right atrium is normal. Chiari network (normal variant) is noted. A prominent eustachian valve is noted. The left atrial size is normal. The interatrial septum is intact with no evidence for an atrial septal defect. Injection of contrast documented an interatrial shunt. Effusions There is no pericardial effusion. : KO BARKSDALE Anil
[2020-07-20] MEDS: ATORVASTATIN CALCIUM 40 MG TABLET PO SCH (21:16)
[2020-07-21] MEDS: DEXTROSE 5%-LACTATED RINGERS 1,000 ML IV PRN ×3 (01:14→14:59)
[2020-07-21] MEDS: IPRATROPIUM/ALBUTEROL 0.5-2.5 MG/3 ML AMPUL NEB SCH ×4 (01:47→20:42)
[2020-07-21] MEDS: INSULIN LISPRO 100 UNIT/ML 3 ML VIAL SUBCUT SCH ×5 (03:18→21:18)
[2020-07-21] MEDS: LEVOTHYROXINE SODIUM 0.05 MG TABLET PO SCH (06:16)
[2020-07-21] MEDS: HEPARIN SOD (PORCINE) 5,000 UNIT/ML 1 ML VIAL SUBCUT SCH ×3 (06:16→21:22)
[2020-07-21] MEDS: BUDESONIDE NEB 0.5 MG/2 ML AMPUL NEB SCH ×2 (08:35→20:42)
[2020-07-21] MEDS: METHADONE HCL 10 MG TABLET PEG SCH (10:24)
[2020-07-21] MEDS: ASCORBIC ACID 500 MG TABLET PEG SCH ×2 (10:25→17:27)
[2020-07-21] MEDS: ASPIRIN 81 MG TABLET, ENT COATED PO SCH (10:25)
[2020-07-21] MEDS: ZINC SULFATE 220 MG CAPSULE PEG SCH (10:25)
[2020-07-21] MEDS: LISINOPRIL 5 MG TABLET PO SCH (10:25)
[2020-07-21] MEDS: PANTOPRAZOLE SODIUM 40 MG VIAL IV SCH ×2 (10:26→21:22)
[2020-07-21] MEDS: THIAMINE HCL 100 MG TABLET PEG SCH (10:26)
[2020-07-21] MEDS: DOXYCYCLINE HYCLATE 100 MG in DEXTROSE 5%-WATER 250 ML IV SCH ×2 (10:27→21:21)
--- NOTE | 2020-07-21 18:32 | PDOC PROGRESS REPORT ---
Subjective Progress Note for:: 07/21/20 Subjective:: Patient sitting up in bed. Complaining that she is having difficulty breathing. She certainly seems anxious. Reason For Visit: ACUTE RESPIRATORY ACIDOSIS,ALTERED MENTAL STATUS, Physical Exam Vital Signs: Temp Pulse Resp BP Pulse Ox 98.2 F 71 16 112/65 97 07/21/20 15:41 07/21/20 16:00 07/21/20 16:00 07/21/20 16:00 07/21/20 16:00 Intake & Output 07/20/20 07/21/20 07/22/20 06:59 06:59 05:59 Intake Total 986 4068 2968 Output Total 1375 2700 1500 Balance -389 1368 1468 Weight 45 kg 42.1 kg General appearance: PRESENT: cooperative, mild distress, thin, well-developed Head exam: PRESENT: atraumatic, normocephalic Eye exam: PRESENT: conjunctiva pink. ABSENT: scleral icterus Ear exam: PRESENT: normal external ear exam. ABSENT: bleeding, drainage Mouth exam: PRESENT: dry mucosa, tongue midline Teeth exam: PRESENT: poor dentation Neck exam: PRESENT: other - Thyroidectomy scar. ABSENT: carotid bruit, JVD, lymphadenopathy Respiratory exam: PRESENT: clear to auscultation awais, symmetrical, unlabored. ABSENT: accessory muscle use, rales, rhonchi, tachypnea, wheezes Cardiovascular exam: PRESENT: RRR, +S1, +S2. ABSENT: bradycardia, diastolic murmur, irregular rhythm, systolic murmur GI/Abdominal exam: PRESENT: normal bowel sounds, soft. ABSENT: distended, guarding, tenderness Rectal exam: PRESENT: deferred Gentrourinary exam: ABSENT: indwelling catheter Extremities exam: PRESENT: other - Right arm with mild edema Neurological exam: PRESENT: alert, awake, oriented to person, oriented to place, oriented to time, oriented to situation, CN II-XII grossly intact, motor sensory deficit - Still with dense right arm monoplegia. ABSENT: altered Psychiatric exam: PRESENT: depressed. ABSENT: agitated, anxious Focused psych exam: ABSENT: delusional, paranoid, restlessness Skin exam: PRESENT: dry, normal color, warm. ABSENT: rash Results Laboratory Results: 07/20/20 06:28 07/20/20 06:28 07/19/20 14:25 Sputum Gram Stain - Final 07/17/20 07/17/20 07/18/20 17:50 17:50 02:19 Creatine Kinase 128 Troponin I 0.050 0.201 NT-Pro-B Natriuret Pep 279 H 07/18/20 07/18/20 08:34 15:14 Creatine Kinase Troponin I 0.114 0.069 NT-Pro-B Natriuret Pep Impressions: Cervical Spine CT 07/17/20 17:51 IMPRESSION: No acute fracture or dislocation of the cervical spine. Head CT 07/17/20 17:51 IMPRESSION: NO ACUTE INTRACRANIAL IMAGING FINDINGS. EVIDENCE OF ACUTE STROKE: NO. Chest X-Ray 07/17/20 20:18 IMPRESSION: No evidence of acute cardiopulmonary disease. Carotid Doppler Study 07/19/20 00:00 IMPRESSION: NO HEMODYNAMICALLY SIGNIFICANT STENOSIS. Modified Barium Swallow 07/19/20 00:00 IMPRESSION: TRACE LARYNGEAL PENETRATION WITHOUT ASPIRATION. PLEASE SEE SPEECH PATHOLOGIST REPORT FOR OTHER FINDINGS AND RECOMMENDATIONS. Assessment and Plan - Diagnosis (1) Acute on chronic respiratory failure with hypoxia and hypercapnia Is this a current diagnosis for this admission?: Yes (2) Acute ischemic stroke Is this a current diagnosis for this admission?: Yes (3) COPD with acute bronchitis Is this a current diagnosis for this admission?: Yes (4) Loss of consciousness Is this a current diagnosis for this admission?: Yes (5) Methadone dependence Is this a current diagnosis for this admission?: Yes (6) Cigarette nicotine dependence Is this a current diagnosis for this admission?: Yes (7) Hypothyroidism associated with surgical procedure Is this a current diagnosis for this admission?: Yes (8) Lactic acidemia Is this a current diagnosis for this admission?: Yes (9) Elevated troponin Is this a current diagnosis for this admission?: Yes (10) Dehydration Is this a current diagnosis for this admission?: Yes (11) Open back wound Qualifiers: Encounter type: initial encounter Laterality: right Qualified Code(s): S21.201A - Unspecified open wound of right back wall of thorax without penetration into thoracic cavity, initial encounter Is this a current diagnosis for this admission?: Yes (12) Acute bronchitis due to Haemophilus influenzae Is this a current diagnosis for this admission?: Yes - Plan Summary Summary: Patient will be admitted to [facility] where she will receive routine supportive and symptomatic cares. She will be continued on BiPAP with supplemental oxygen as needed to maintain an adequate oxygen saturation and alleviate her respiratory acidosis. She will be monitored closely with every 4 hour neurochecks and vital signs as well as telemetry monitoring. CBCs, metabolic profiles, ABGs and additional laboratory and/or radiographic evaluations will be obtained as needed. She received Ativan 1 mg IV every 4 hours as needed for agitation or restlessness. A registered dietitian consultation will be obtained. Every 4 hour Accu-Cheks will be obtained with sliding scale insulin for hyperglycemia and a hypoglycemic protocol in place. 07/17/2020 Acute ischemic stroke-the patient has a dense right hemiplegia consistent with acute ischemic stroke. Diagnostic imaging revealed what appears to be a staple or other metal object in the right side of the neck. This would preclude an MRI study. We will obtain carotid ultrasounds and possibly an echocardiogram. I have ordered an aspirin suppository now and await swallowing evaluation before proceeding with oral medications such as statin therapy. Acute on chronic respiratory failure with hypoxia and hypercapnia-markedly elevated PCO2 on admission. This has improved significantly with BiPAP. The patient is likely at her baseline PCO2 level. Possible bronchitis with associated COPD and I will start intravenous doxycycline. I have ordered a sputum specimen but it is unlikely that the patient will be able to produce a good specimen due to overall weakness. Keep oxygen saturations in the 90 to 94% range. Lactic acidemia secondary to hypoxia and hypercapnia Elevated troponin likely secondary to hypoxia Nicotine addiction-nicotine patch Hypothyroidism with history of thyroidectomy-TSH is elevated at 13. Increase levothyroxine to 125 mcg daily. Back wound-likely from shearing. Bacitracin and simple dressing change daily. Severe protein calorie malnutrition-dietitian has been consulted Dehydration-IV fluids and monitor serum chemistries as well as volume status Correction-the above note is actually from 07/18/2020 07/19/2020 Patient still with a dense right hemiplegia. Speech is improved. We will add aspirin, statin and maintain good blood pressure control. The patient is having a modified barium swallow today. Hypercapnia has resolved. We will need to monitor closely and not allow oxygen saturation to go above 94% unless the patient is on room air. Continue levothyroxine Continue wound care for back wound. Appreciate wound care consult We will institute dietitian recommendations when available. 07/20/2020 The patient is upset at the thought of short-term longterm. She is worried that her daughter is going to leave her there. She has regained significant function in her right leg. I explained that this is an excellent benchmark of progress. I believe she is most frustrated with her right arm/hand. I explained to her that recovery can take months but it will take hard work. I explained that going to the short-term skilled rehab is the best chance she has of maximizing her recovery. She was tearful but I think understands. We will continue aspirin therapy as well as blood pressure control and statin therapy. The patient was out of the window for TPA once the stroke was identified. No anticoagulation but rather antiplatelet therapy alone. Sputum culture was positive for Haemophilus influenza. Antibiotic therapy has been very effective in resolving this infection. Back wound is stable. Blood pressures are still slightly higher than desired. I will add low-dose KARLA inhibitor. Hypothyroidism-continue levothyroxine Nutrition-I reviewed the dietitians suggestions. We will change the Jevity to 8 ounces every 6 hours and institute 120 mL water flushes every 4 hours. 07/21/2020 The patient reports difficulty breathing however her pulse oximetry is in the high 90s on room air and her lungs are clear. I feel this is more likely anxiety. Stroke-still with dense right arm monoplegia. Legs are much better. Continue to work with PT and OT. Echocardiogram and carotid ultrasound were normal. Pharyngeal dysphagia-continue to work with speech therapy. The patient gets the majority of her nutrition from tube feeds. Speech has suggested that she initiate an oral diet and we will try and build on the oral diet to eventually supplant tube feeds. COPD with bronchitis-sputum culture actually is polymicrobial. In addition to Haemophilus influenza Streptococcus pneumoniae has been isolated as well as other pathogens. Complete antibiotic therapy as ordered. Back wound-continue wound care center suggested dressings Severe protein calorie malnutrition-following the dietitian's recommendations. As oral diet increases the tube feeds can be adjusted. Believe the patient is developing some depression. I will speak more directly to this tomorrow once I am sure that the shortness of breath was not from any other pathology. I will obtain a chest x-ray as well as repeat laboratory studies. The overall goal is for the patient to transition to short-term rehab/skilled facility on Thursday. - Time Time Spent with patient: 15-24 minutes Medications reviewed and adjusted accordingly: Yes Anticipated Discharge Disposition: [facility] Facility Anticipated Discharge Timeframe: within 72 hours
[2020-07-21] MEDS ORDERED: LEVALBUTEROL HCL NEB 1.25 MG/3 ML AMPUL NEB PRN (18:39)
[2020-07-21] MEDS: ATORVASTATIN CALCIUM 40 MG TABLET PO SCH (21:21)
[2020-07-22] MEDS: IPRATROPIUM/ALBUTEROL 0.5-2.5 MG/3 ML AMPUL NEB SCH ×3 (02:10→09:28)
[2020-07-22] MEDS: LEVOTHYROXINE SODIUM 0.05 MG TABLET PO SCH (05:45)
[2020-07-22] MEDS: HEPARIN SOD (PORCINE) 5,000 UNIT/ML 1 ML VIAL SUBCUT SCH ×3 (05:45→21:15)
[2020-07-22] MEDS: DEXTROSE 5%-LACTATED RINGERS 1,000 ML IV PRN (05:48)
[2020-07-22 06:32] LABS: ABSOLUTE BASOPHILS # (AUTO) 0.1 10^3/uL (0.0-0.2); ABSOLUTE EOSINOPHILS # (AUTO) 0.2 10^3/uL (0.0-0.6); ABSOLUTE MONOCYTES (AUTO) 1.2 10^3/uL (0.1-1.4); ABSOLUTE NEUT (AUTO) 5.5 10^3/uL (1.7-8.2); BASOPHILS % (AUTO) 0.7 % (0-2); EOSINOPHILS % (AUTO) 2.9 % (0-6); HEMOGLOBIN 11.7 g/dL (12.0-15.5); LYMPHOCYTES % (AUTO) 12.5 % (13-45); MEAN CORPUSCULAR HEMOGLOBIN 31.5 pg (27.0-33.4); MEAN CORPUSCULAR HGB CONC 34.3 g/dL (32.0-36.0); MEAN CORPUSCULAR VOLUME 92 fl (80-97); MONOCYTES % (AUTO) 14.7 % (3-13); PLATELET COUNT 205 10^3/uL (150-450); RED CELL DISTRIBUTION WIDTH 13.8 % (11.5-14.0); SEGMENTED NEUTROPHILS % (AUTO) 69.2 % (42-78); TOTAL CELLS COUNTED % (AUTO) 100 %; WHITE BLOOD COUNT 7.9 10^3/uL (4.0-10.5)
[2020-07-22 06:35] LABS: BLOOD UREA NITROGEN 14 mg/dL (7-20); CALCIUM 8.8 mg/dL (8.4-10.2); GLUCOSE 105 mg/dL (75-110); POTASSIUM 4.4 mmol/L (3.6-5.0)
[2020-07-22 06:58] LABS: ANION GAP 7 (5-19); CARBON DIOXIDE 34 mmol/L (22-30); CHLORIDE 99 mmol/L (98-107)
[2020-07-22] MEDS: BUDESONIDE NEB 0.5 MG/2 ML AMPUL NEB SCH ×2 (08:19→09:28)
[2020-07-22] MEDS: INSULIN LISPRO 100 UNIT/ML 3 ML VIAL SUBCUT SCH ×4 (08:32→22:16)
--- NOTE | 2020-07-22 08:33 | RADIOLOGY REPORT (SQ) ---
EXAM DESCRIPTION: CHEST SINGLE VIEW IMAGES COMPLETED DATE/TIME: 07/22/2020 8:17 am REASON FOR STUDY: COPD/pneumonia COMPARISON: 07/17/2020 FINDINGS: One-view chest AP portable upright. Stable exam. Hyperinflated lungs consistent with the history of COPD. No suggestion of significant pneumonia or congestive failure. Stable cardiomediastinal silhouette. No pneumothorax. Bones intac t as assessed. TECHNICAL DOCUMENTATION: JOB ID: [id number] Reading location - IP/workstation name: [email or web address]
[2020-07-22] MEDS: METHADONE HCL 10 MG TABLET PEG SCH (10:24)
[2020-07-22] MEDS: ASCORBIC ACID 500 MG TABLET PEG SCH (10:26)
[2020-07-22] MEDS: ASPIRIN 81 MG TABLET, ENT COATED PO SCH (10:26)
[2020-07-22] MEDS: LISINOPRIL 5 MG TABLET PO SCH (10:26)
[2020-07-22] MEDS: ZINC SULFATE 220 MG CAPSULE PEG SCH (10:26)
[2020-07-22] MEDS: FLUTICASONE/UMECLIDIN/VILANTER 100-62.5-25 MCG/DOSE IH SCH (10:26)
[2020-07-22] MEDS: THIAMINE HCL 100 MG TABLET PEG SCH (10:26)
[2020-07-22] MEDS: PANTOPRAZOLE SODIUM 40 MG VIAL IV SCH (10:26)
[2020-07-22] MEDS: DOXYCYCLINE HYCLATE 100 MG in DEXTROSE 5%-WATER 250 ML IV SCH (10:27)
--- NOTE | 2020-07-22 13:48 | PDOC PROGRESS REPORT ---
Subjective Progress Note for:: 07/22/20 Subjective:: Patient having difficulties with IV and because her appetite is improving she would like to hold the tube feeds. She still has emotional lability. Reason For Visit: ACUTE RESPIRATORY ACIDOSIS,ALTERED MENTAL STATUS, Physical Exam Vital Signs: Temp Pulse Resp BP Pulse Ox 97.6 F 65 16 136/79 H 95 07/22/20 11:57 07/22/20 12:00 07/22/20 12:00 07/22/20 12:00 07/22/20 12:00 Intake & Output 07/21/20 07/22/20 07/23/20 07:59 06:59 06:59 Intake Total Output Total Balance Weight General appearance: PRESENT: cooperative, mild distress, well-developed Ear exam: PRESENT: normal external ear exam. ABSENT: bleeding, drainage Neck exam: ABSENT: carotid bruit, JVD, lymphadenopathy Respiratory exam: PRESENT: clear to auscultation awais, symmetrical, unlabored. ABSENT: rales, rhonchi, tachypnea, wheezes Cardiovascular exam: PRESENT: RRR, +S1, +S2, systolic murmur - 2/6. ABSENT: bradycardia, diastolic murmur, irregular rhythm, tachycardia GI/Abdominal exam: PRESENT: normal bowel sounds, soft. ABSENT: distended, guarding, tenderness Rectal exam: PRESENT: deferred Gentrourinary exam: ABSENT: indwelling catheter Extremities exam: ABSENT: pedal edema Musculoskeletal exam: PRESENT: normal inspection Neurological exam: PRESENT: alert, awake, oriented to person, oriented to place, oriented to time, oriented to situation, motor sensory deficit - Still with right upper extremity monoplegia. Psychiatric exam: PRESENT: anxious, other - Tearful. ABSENT: agitated Focused psych exam: ABSENT: delusional, paranoid, restlessness Results Laboratory Results: 07/22/20 05:18 07/22/20 05:18 07/22/20 07/22/20 05:18 05:18 WBC 7.9 RBC 3.70 L Hgb 11.7 L Hct 34.0 L MCV 92 MCH 31.5 MCHC 34.3 RDW 13.8 Plt Count 205 Seg Neutrophils % 69.2 Sodium 139.8 Potassium 4.4 Chloride 99 Carbon Dioxide 34 H Anion Gap 7 BUN 14 Creatinine 0.60 Est GFR ( Amer) > 60 Glucose 105 Calcium 8.8 Magnesium 2.0 07/19/20 14:25 Sputum Gram Stain - Final 07/17/20 07/17/20 07/18/20 17:50 17:50 02:19 Creatine Kinase 128 Troponin I 0.050 0.201 NT-Pro-B Natriuret Pep 279 H 07/18/20 07/18/20 08:34 15:14 Creatine Kinase Troponin I 0.114 0.069 NT-Pro-B Natriuret Pep Impressions: Cervical Spine CT 07/17/20 17:51 IMPRESSION: No acute fracture or dislocation of the cervical spine. Head CT 07/17/20 17:51 IMPRESSION: NO ACUTE INTRACRANIAL IMAGING FINDINGS. EVIDENCE OF ACUTE STROKE: NO. Carotid Doppler Study 07/19/20 00:00 IMPRESSION: NO HEMODYNAMICALLY SIGNIFICANT STENOSIS. Modified Barium Swallow 07/19/20 00:00 IMPRESSION: TRACE LARYNGEAL PENETRATION WITHOUT ASPIRATION. PLEASE SEE SPEECH PATHOLOGIST REPORT FOR OTHER FINDINGS AND RECOMMENDATIONS. Assessment and Plan - Diagnosis (1) Acute on chronic respiratory failure with hypoxia and hypercapnia Is this a current diagnosis for this admission?: Yes (2) Acute ischemic stroke Is this a current diagnosis for this admission?: Yes (3) COPD with acute bronchitis Is this a current diagnosis for this admission?: Yes (4) Loss of consciousness Is this a current diagnosis for this admission?: Yes (5) Methadone dependence Is this a current diagnosis for this admission?: Yes (6) Cigarette nicotine dependence Is this a current diagnosis for this admission?: Yes (7) Hypothyroidism associated with surgical procedure Is this a current diagnosis for this admission?: Yes (8) Lactic acidemia Is this a current diagnosis for this admission?: Yes (9) Elevated troponin Is this a current diagnosis for this admission?: Yes (10) Dehydration Is this a current diagnosis for this admission?: Yes (11) Open back wound Qualifiers: Encounter type: initial encounter Laterality: right Qualified Code(s): S21.201A - Unspecified open wound of right back wall of thorax without penetration into thoracic cavity, initial encounter Is this a current diagnosis for this admission?: Yes (12) Acute bronchitis due to Haemophilus influenzae Is this a current diagnosis for this admission?: Yes - Plan Summary Summary: Patient will be admitted to [facility] where she will receive routine supportive and symptomatic cares. She will be continued on BiPAP with supplemental oxygen as needed to maintain an adequate oxygen saturation and alleviate her respiratory acidosis. She will be monitored closely with every 4 hour neurochecks and vital signs as well as telemetry monitoring. CBCs, metabolic profiles, ABGs and additional laboratory and/or radiographic evaluations will be obtained as needed. She received Ativan 1 mg IV every 4 hours as needed for agitation or restlessness. A registered dietitian consultation will be obtained. Every 4 hour Accu-Cheks will be obtained with sliding scale insulin for hyperglycemia and a hypoglycemic protocol in place. 07/17/2020 Acute ischemic stroke-the patient has a dense right hemiplegia consistent with acute ischemic stroke. Diagnostic imaging revealed what appears to be a staple or other metal object in the right side of the neck. This would preclude an MRI study. We will obtain carotid ultrasounds and possibly an echocardiogram. I have ordered an aspirin suppository now and await swallowing evaluation before proceeding with oral medications such as statin therapy. Acute on chronic respiratory failure with hypoxia and hypercapnia-markedly elevated PCO2 on admission. This has improved significantly with BiPAP. The patient is likely at her baseline PCO2 level. Possible bronchitis with associated COPD and I will start intravenous doxycycline. I have ordered a sputum specimen but it is unlikely that the patient will be able to produce a good specimen due to overall weakness. Keep oxygen saturations in the 90 to 94% range. Lactic acidemia secondary to hypoxia and hypercapnia Elevated troponin likely secondary to hypoxia Nicotine addiction-nicotine patch Hypothyroidism with history of thyroidectomy-TSH is elevated at 13. Increase levothyroxine to 125 mcg daily. Back wound-likely from shearing. Bacitracin and simple dressing change daily. Severe protein calorie malnutrition-dietitian has been consulted Dehydration-IV fluids and monitor serum chemistries as well as volume status Correction-the above note is actually from 07/18/2020 07/19/2020 Patient still with a dense right hemiplegia. Speech is improved. We will add aspirin, statin and maintain good blood pressure control. The patient is having a modified barium swallow today. Hypercapnia has resolved. We will need to monitor closely and not allow oxygen saturation to go above 94% unless the patient is on room air. Continue levothyroxine Continue wound care for back wound. Appreciate wound care consult We will institute dietitian recommendations when available. 07/20/2020 The patient is upset at the thought of short-term residential. She is w orried that her daughter is going to leave her there. She has regained significant function in her right leg. I explained that this is an excellent benchmark of progress. I believe she is most frustrated with her right arm/hand. I explained to her that recovery can take months but it will take h brigida work. I explained that going to the short-term skilled rehab is the best chance she has of maximizing her recovery. She was tearful but I think understands. We will continue aspirin therapy as well as blood pressure control and statin therapy. The patient was out of the window for TPA once the stroke was identified. No anticoagulation but rather antiplatelet therapy alone. Sputum culture was positive for Haemophilus influenza. Antibiotic therapy has been very effective in resolving this infection. Back wound is stable. Blood pressures are still slightly higher than desired. I will add low-dose KARLA inhibitor. Hypothyroidism-continue levothyroxine Nutrition-I reviewed the dietitians suggestions. We will change the Jevity to 8 ounces every 6 hours and institute 120 mL water flushes every 4 hours. 07/21/2020 The patient reports difficulty breathing however her pulse oximetry is in the high 90s on room air and her lungs are clear. I feel this is more likely anxiety. Stroke-still with dense right arm monoplegia. Legs are much better. Continue to work with PT and OT. Echocardiogram and carotid ultrasound were normal. Pharyngeal dysphagia-continue to work with speech therapy. The patient gets the majority of her nutrition from tube feeds. Speech has suggested that she initiate an oral diet and we will try and build on the oral diet to eventually supplant tube feeds. COPD with bronchitis-sputum culture actually is polymicrobial. In addition to Haemophilus influenza Streptococcus pneumoniae has been isolated as well as other pathogens. Complete antibiotic therapy as ordered. Back wound-continue wound care center suggested dressings Severe protein calorie malnutrition-following the dietitian's recommendations. As oral diet increases the tube feeds can be adjusted. Believe the patient is developing some depression. I will speak more directly to this tomorrow once I am sure that the shortness of breath was not from any other pathology. I will obtain a chest x-ray as well as repeat laboratory studies. The overall goal is for the patient to transition to short-term rehab/skilled facility on Thursday. 07/22/2020 She reports some difficulty breathing again today. Lungs are clear on chest x- ray was normal. I believe this is more anxiety. Dysphagia-her appetite is improved and she is taking food more consistently. I will hold the tube feeds and water flushes. We will track her intake and if we need to supplement her oral intake we will do it through the PEG tube. We will change medications to oral administration at this time. Difficult to maintain IV access and so the doxycycline for her bronchitis will be changed to oral dosing. Stroke-she is stable for transfer to residential facility. I think she will need to consider treatment for depression. Sometimes with improvement in functional status the patient's outlook and hence emotional state improved. COPD-beginning to transition to an outpatient appropriate treatment plan with inhaler and will need a rescue inhaler as well. - Time Time Spent with patient: Less than 15 minutes Medications reviewed and adjusted accordingly: Yes Anticipated Discharge Disposition: Senior Living Facility Anticipated Discharge Timeframe: within 24 hours
[2020-07-22] MEDS ORDERED: PHARMACY COMMUNICATION ORDER MC NR (15:30)
[2020-07-22] MEDS: ASCORBIC ACID 500 MG TABLET PO SCH (17:47)
[2020-07-22] MEDS: ATORVASTATIN CALCIUM 40 MG TABLET PO SCH (21:16)
[2020-07-22] MEDS: DOXYCYCLINE HYCLATE 100 MG TABLET PO SCH (21:23)
[2020-07-23] MEDS: LEVOTHYROXINE SODIUM 0.05 MG TABLET PO SCH (05:50)
[2020-07-23] MEDS: PANTOPRAZOLE SODIUM 40 MG TABLET.DR PO SCH (05:52)
[2020-07-23] MEDS: HEPARIN SOD (PORCINE) 5,000 UNIT/ML 1 ML VIAL SUBCUT SCH ×3 (05:52→21:34)
[2020-07-23] MEDS: INSULIN LISPRO 100 UNIT/ML 3 ML VIAL SUBCUT SCH ×4 (08:25→21:26)
[2020-07-23] MEDS ORDERED: PROMETHAZINE HCL 6.25 MG/5 ML SYRUP 60 ML PO PRN (10:00)
[2020-07-23] MEDS: ZINC SULFATE 220 MG CAPSULE PO SCH (10:06)
[2020-07-23] MEDS: METHADONE HCL 10 MG TABLET PO SCH (10:09)
[2020-07-23] MEDS: ASCORBIC ACID 500 MG TABLET PO SCH ×2 (10:09→18:40)
[2020-07-23] MEDS: ASPIRIN 81 MG TABLET, ENT COATED PO SCH (10:09)
[2020-07-23] MEDS: LISINOPRIL 5 MG TABLET PO SCH (10:09)
[2020-07-23] MEDS: DOXYCYCLINE HYCLATE 100 MG TABLET PO SCH ×2 (10:09→21:36)
[2020-07-23] MEDS: FLUTICASONE/UMECLIDIN/VILANTER 100-62.5-25 MCG/DOSE IH SCH (10:10)
[2020-07-23] MEDS: THIAMINE HCL 100 MG TABLET PO SCH (10:10)
--- NOTE | 2020-07-23 10:55 | PDOC PROGRESS REPORT ---
Subjective Progress Note for:: 07/23/20 Subjective:: Patient is resting comfortably. We discussed transition to skilled rehab. I again supported the idea that this would give her the best chance for maximum recovery. I also took the opportunity to suggest an support medication for her depression. Reason For Visit: ACUTE RESPIRATORY ACIDOSIS,ALTERED MENTAL STATUS, Physical Exam Vital Signs: Temp Pulse Resp BP Pulse Ox 98.1 F 71 16 122/75 97 07/23/20 08:09 07/23/20 08:09 07/23/20 08:09 07/23/20 08:09 07/23/20 08:09 Intake & Output 07/22/20 07/23/20 07/24/20 06:59 06:59 06:59 Intake Total 2444 Output Total 3040 Balance -596 Weight 42.2 kg General appearance: PRESENT: no acute distress, cooperative, thin Respiratory exam: PRESENT: clear to auscultation awais, symmetrical, unlabored. ABSENT: rales, rhonchi, tachypnea, wheezes Cardiovascular exam: PRESENT: RRR, +S1, +S2, systolic murmur - 2/6. ABSENT: bradycardia, diastolic murmur, irregular rhythm, tachycardia GI/Abdominal exam: PRESENT: soft, other - G-tube. ABSENT: tenderness Rectal exam: PRESENT: deferred Gentrourinary exam: ABSENT: indwelling catheter Extremities exam: ABSENT: pedal edema Musculoskeletal exam: PRESENT: ambulatory, other - Decreased muscle mass. ABSENT: deformity, dislocation Neurological exam: PRESENT: alert, awake, oriented to person, oriented to place, oriented to time, oriented to situation, CN II-XII grossly intact, other - Still with dense monoplegia right upper extremity. ABSENT: altered Psychiatric exam: PRESENT: flat affect. ABSENT: agitated, anxious Focused psych exam: ABSENT: delusional, paranoid, restlessness Skin exam: PRESENT: dry, normal color, warm. ABSENT: rash Results Laboratory Results: 07/22/20 05:18 07/22/20 05:18 07/19/20 14:25 Sputum Gram Stain - Final 07/19/20 14:25 Sputum Sputum Culture - Final Haemophilus Influenzae Streptococcus Pneumoniae Bordetella Bronchiseptica Normal Maggie 07/17/20 18:41 Blood Blood Culture - Final NO GROWTH IN 5 DAYS 07/17/20 17:50 Blood Blood Culture - Final NO GROWTH IN 5 DAYS 07/17/20 07/17/20 07/18/20 17:50 17:50 02:19 Creatine Kinase 128 Troponin I 0.050 0.201 NT-Pro-B Natriuret Pep 279 H 07/18/20 07/18/20 08:34 15:14 Creatine Kinase Troponin I 0.114 0.069 NT-Pro-B Natriuret Pep Impressions: Cervical Spine CT 07/17/20 17:51 IMPRESSION: No acute fracture or dislocation of the cervical spine. Head CT 07/17/20 17:51 IMPRESSION: NO ACUTE INTRACRANIAL IMAGING FINDINGS. EVIDENCE OF ACUTE STROKE: NO. Carotid Doppler Study 07/19/20 00:00 IMPRESSION: NO HEMODYNAMICALLY SIGNIFICANT STENOSIS. Modified Barium Swallow 07/19/20 00:00 IMPRESSION: TRACE LARYNGEAL PENETRATION WITHOUT ASPIRATION. PLEASE SEE SPEECH PATHOLOGIST REPORT FOR OTHER FINDINGS AND RECOMMENDATIONS. Assessment and Plan - Diagnosis (1) Acute on chronic respiratory failure with hypoxia and hypercapnia Is this a current diagnosis for this admission?: Yes (2) Acute ischemic stroke Is this a current diagnosis for this admission?: Yes (3) COPD with acute bronchitis Is this a current diagnosis for this admission?: Yes (4) Loss of consciousness Is this a current diagnosis for this admission?: Yes (5) Methadone dependence Is this a current diagnosis for this admission?: Yes (6) Cigarette nicotine dependence Is this a current diagnosis for this admission?: Yes (7) Hypothyroidism associated with surgical procedure Is this a current diagnosis for this admission?: Yes (8) Lactic acidemia Is this a current diagnosis for this admission?: Yes (9) Elevated troponin Is this a current diagnosis for this admission?: Yes (10) Dehydration Is this a current diagnosis for this admission?: Yes (11) Open back wound Qualifiers: Encounter type: initial encounter Laterality: right Qualified Code(s): S21.201A - Unspecified open wound of right back wall of thorax without penetration into thoracic cavity, initial encounter Is this a current diagnosis for this admission?: Yes (12) Acute bronchitis due to Haemophilus influenzae Is this a current diagnosis for this admission?: Yes - Plan Summary Summary: Patient will be admitted to [facility] where she will receive routine supportive and symptomatic cares. She will be continued on BiPAP with supplemental oxygen as needed to maintain an adequate oxygen saturation and alleviate her respiratory acidosis. She will be monitored closely with every 4 hour neurochecks and vital signs as well as telemetry monitoring. CBCs, metabolic profiles, ABGs and additional laboratory and/or radiographic evaluations will be obtained as needed. She received Ativan 1 mg IV every 4 hours as needed for agitation or restlessness. A registered dietitian consultation will be obtained. Every 4 hour Accu-Cheks will be obtained with sliding scale insulin for hyperglycemia and a hypoglycemic protocol in place. 07/17/2020 Acute ischemic stroke-the patient has a dense right hemiplegia consistent with acute ischemic stroke. Diagnostic imaging revealed what appears to be a staple or other metal object in the right side of the neck. This would preclude an MRI study. We will obtain carotid ultrasounds and possibly an echocardiogram. I have ordered an aspirin suppository now and await swallowing evaluation before proceeding with oral medications such as statin therapy. Acute on chronic respiratory failure with hypoxia and hypercapnia-markedly el evated PCO2 on admission. This has improved significantly with BiPAP. The patient is likely at her baseline PCO2 level. Possible bronchitis with associated COPD and I will start intravenous doxycycline. I have ordered a sputum specimen but it is unlikely that the patient will be able to produce a good specimen due to overall weakness. Keep oxygen saturations in the 90 to 94% range. Lactic acidemia secondary to hypoxia and hypercapnia Elevated troponin likely secondary to hypoxia Nicotine addiction-nicotine patch Hypothyroidism with history of thyroidectomy-TSH is elevated at 13. Increase levothyroxine to 125 mcg daily. Back wound-likely from shearing. Bacitracin and simple dressing change daily. Severe protein calorie malnutrition-dietitian has been consulted Dehydration-IV fluids and monitor serum chemistries as well as volume status Correction-the above note is actually from 07/18/2020 07/19/2020 Patient still with a dense right hemiplegia. Speech is improved. We will add aspirin, statin and maintain good blood pressure control. The patient is having a modified barium swallow today. Hypercapnia has resolved. We will need to monitor closely and not allow oxygen saturation to go above 94% unless the patient is on room air. Continue levothyroxine Continue wound care for back wound. Appreciate wound care consult We will institute dietitian recommendations when available. 07/20/2020 The patient is upset at the thought of short-term senior living. She is worried that her daughter is going to leave her there. She has regained significant function in her right leg. I explained that this is an excellent benchmark of progress. I believe she is most frustrated with her right arm/hand. I explained to her that recovery can take months but it will take hard work. I explained that going to the short-term skilled rehab is the best chance she has of maximizing her recovery. She was tearful but I think understands. We will continue aspirin therapy as well as blood pressure control and statin therapy. The patient was out of the window for TPA once the stroke was identified. No anticoagulation but rather antiplatelet therapy alone. Sputum culture was positive for Haemophilus influenza. Antibiotic therapy has been very effective in resolving this infection. Back wound is stable. Blood pressures are still slightly higher than desired. I will add low-dose KARLA inhibitor. Hypothyroidism-continue levothyroxine Nutrition-I reviewed the dietitians suggestions. We will change the Jevity to 8 ounces every 6 hours and institute 120 mL water flushes every 4 hours. 07/21/2020 The patient reports difficulty breathing however her pulse oximetry is in the high 90s on room air and her lungs are clear. I feel this is more likely anxi ety. Stroke-still with dense right arm monoplegia. Legs are much better. Continue to work with PT and OT. Echocardiogram and carotid ultrasound were normal. Pharyngeal dysphagia-continue to work with speech therapy. The patient gets the majority of her nutrition from tube feeds. Speech has suggested that she initiate an oral diet and we will try and build on the oral diet to eventually supplant tube feeds. COPD with bronchitis-sputum culture actually is polymicrobial. In addition to Haemophilus influenza Streptococcus pneumoniae has been isolated as well as other pathogens. Complete antibiotic therapy as ordered. Back wound-continue wound care center suggested dressings Severe protein calorie malnutrition-following the dietitian's recommendations. As oral diet increases the tube feeds can be adjusted. Believe the patient is developing some depression. I will speak more directly t o this tomorrow once I am sure that the shortness of breath was not from any other pathology. I will obtain a chest x-ray as well as repeat laboratory studies. The overall goal is for the patient to transition to short-term rehab/skilled facility on Thursday. 07/22/2020 She reports some difficulty breathing again today. Lungs are clear on chest x- ray was normal. I believe this is more anxiety. Dysphagia-her appetite is improved and she is taking food more consistently. I will hold the tube feeds and water flushes. We will track her intake and if we need to supplement her oral intake we will do it through the PEG tube. We will change medications to oral administration at this time. Difficult to maintain IV access and so the doxycycline for her bronchitis will be changed to oral dosing. Stroke-she is stable for transfer to senior living facility. I think she will need to consider treatment for depression. Sometimes with improvement in functional status the patient's outlook and hence emotional state improved. COPD-beginning to transition to an outpatient appropriate treatment plan with inhaler and will need a rescue inhaler as well. 07/23/2020 COPD with bronchitis-polymicrobial sputum culture. Completing antibiotic therapy. Complaints of breathing are routed in anxiety as her chest x-ray is clear as is her pulmonary exam. Establish on a regimen for outpatient treatment . Geiqip-ityw-by as above. Aspirin, statin and antihypertensive therapy. Back wound-continue dressings as ordered. Supplements and vitamins/minerals to assist healing. Dysphagia-we are holding the tube feeds and water flushes as the patient's appetite is improving. Explained to the patient that if her caloric intake is adequate we can hold off on the tube feeds. If oral intake of fluids is brian dequate we can always give free water through the tube but I encouraged her to try and meet the requirements by mouth. If this occurs and is sustained we can remove the tube. Depression-bupropion therapy initiated. Started at 75 mg twice daily. She will likely benefit from monitoring and dose adjustment as an outpatient. Methadone therapy-continue current dose Awaiting placement at short-term rehab. Unfortunately this could not be accomplished today. - Time Time Spent with patient: 15-24 minutes Medications reviewed and adjusted accordingly: Yes Anticipated Discharge Disposition: Custodial Facility Anticipated Discharge Timeframe: within 48 hours - Covid serology pending
[2020-07-23] MEDS: ATORVASTATIN CALCIUM 40 MG TABLET PO SCH (21:34)
[2020-07-23] MEDS: BUPROPION HCL 75 MG TABLET PO SCH (21:34)
[2020-07-24] MEDS: LEVOTHYROXINE SODIUM 0.05 MG TABLET PO SCH (05:19)
[2020-07-24] MEDS: PANTOPRAZOLE SODIUM 40 MG TABLET.DR PO SCH (05:19)
[2020-07-24] MEDS: HEPARIN SOD (PORCINE) 5,000 UNIT/ML 1 ML VIAL SUBCUT SCH ×3 (05:19→21:41)
[2020-07-24 06:41] LABS: ABSOLUTE RETICS # 0.049 10^6/uL (0.028-0.122); HEMATOCRIT 38.6 % (36.0-47.0); HEMOGLOBIN 13.2 g/dL (12.0-15.5); MEAN CORPUSCULAR HEMOGLOBIN 31.4 pg (27.0-33.4); MEAN CORPUSCULAR HGB CONC 34.2 g/dL (32.0-36.0); MEAN CORPUSCULAR VOLUME 92 fl (80-97); PLATELET COUNT 247 10^3/uL (150-450); RED BLOOD COUNT 4.21 10^6/uL (3.72-5.28); RED CELL DISTRIBUTION WIDTH 13.7 % (11.5-14.0); RETICULOCYTE COUNT (AUTO) 1.17 % (0.66-2.85); WHITE BLOOD COUNT 8.6 10^3/uL (4.0-10.5)
[2020-07-24 07:04] LABS: ANION GAP 7 (5-19); BLOOD UREA NITROGEN 19 mg/dL (7-20); CALCIUM 9.4 mg/dL (8.4-10.2); CARBON DIOXIDE 38 mmol/L (22-30); CHLORIDE 93 mmol/L (98-107); GLUCOSE 119 mg/dL (75-110); POTASSIUM 5.1 mmol/L (3.6-5.0)
[2020-07-24] MEDS: INSULIN LISPRO 100 UNIT/ML 3 ML VIAL SUBCUT SCH (08:07)
[2020-07-24 08:10] LABS: FOLATE 7.71 ng/mL (>2.76)
[2020-07-24] MEDS: FLUTICASONE/UMECLIDIN/VILANTER 100-62.5-25 MCG/DOSE IH SCH (09:54)
[2020-07-24] MEDS: ASPIRIN 81 MG TABLET, ENT COATED PO SCH (09:54)
[2020-07-24] MEDS: BUPROPION HCL 75 MG TABLET PO SCH ×2 (09:54→21:41)
[2020-07-24] MEDS: ASCORBIC ACID 500 MG TABLET PO SCH ×2 (09:54→18:13)
[2020-07-24] MEDS: DOXYCYCLINE HYCLATE 100 MG TABLET PO SCH ×2 (09:54→21:41)
[2020-07-24] MEDS: METHADONE HCL 10 MG TABLET PO SCH (09:54)
[2020-07-24] MEDS: THIAMINE HCL 100 MG TABLET PO SCH (09:54)
[2020-07-24] MEDS: ZINC SULFATE 220 MG CAPSULE PO SCH (09:55)
[2020-07-24] MEDS ORDERED: LISINOPRIL 5 MG TABLET PO SCH (10:00)
--- NOTE | 2020-07-24 17:37 | PDOC PROGRESS REPORT ---
Subjective Progress Note for:: 07/24/20 Subjective:: NAEO Reason For Visit: ACUTE RESPIRATORY ACIDOSIS,ALTERED MENTAL STATUS, Physical Exam Vital Signs: Temp Pulse Resp BP Pulse Ox 97.6 F 69 16 125/102 H 94 07/24/20 16:00 07/24/20 16:00 07/24/20 16:00 07/24/20 16:00 07/24/20 16:00 Intake & Output 07/23/20 07/24/20 07/25/20 06:59 06:59 06:59 Intake Total 2444 1340 558 Output Total 3040 3250 1400 Balance -396 -1910 -842 Weight 42.2 kg 42.4 kg General appearance: PRESENT: no acute distress, cooperative Eye exam: ABSENT: scleral icterus Mouth exam: PRESENT: moist Teeth exam: PRESENT: edentulous Throat exam: ABSENT: post pharyngeal erythema Neck exam: ABSENT: JVD Respiratory exam: PRESENT: clear to auscultation awais, unlabored Cardiovascular exam: PRESENT: RRR GI/Abdominal exam: PRESENT: normal bowel sounds, other - G tube Extremities exam: ABSENT: pedal edema Musculoskeletal exam: PRESENT: ambulatory Neurological exam: PRESENT: alert, awake Psychiatric exam: PRESENT: anxious Skin exam: ABSENT: rash Results Laboratory Results: 07/24/20 06:02 07/24/20 06:02 07/24/20 07/24/20 06:02 06:02 WBC 8.6 RBC 4.21 Hgb 13.2 Hct 38.6 MCV 92 MCH 31.4 MCHC 34.2 RDW 13.7 Plt Count 247 Retic Count (auto) 1.17 Sodium 137.8 Potassium 5.1 H Chloride 93 L Carbon Dioxide 38 H Anion Gap 7 BUN 19 Creatinine 0.71 Est GFR ( Amer) > 60 Glucose 119 H Calcium 9.4 Magnesium 2.3 Iron 40.0 TIBC 342 % Saturation 12 Ferritin 131.00 Vitamin B12 850.0 Folate 7.71 07/17/20 07/17/20 07/18/20 17:50 17:50 02:19 Creatine Kinase 128 Troponin I 0.050 0.201 NT-Pro-B Natriuret Pep 279 H 07/18/20 07/18/20 08:34 15:14 Creatine Kinase Troponin I 0.114 0.069 NT-Pro-B Natriuret Pep Impressions: Cervical Spine CT 07/17/20 17:51 IMPRESSION: No acute fracture or dislocation of the cervical spine. Head CT 07/17/20 17:51 IMPRESSION: NO ACUTE INTRACRANIAL IMAGING FINDINGS. EVIDENCE OF ACUTE STROKE: NO. Carotid Doppler Study 07/19/20 00:00 IMPRESSION: NO HEMODYNAMICALLY SIGNIFICANT STENOSIS. Modified Barium Swallow 07/19/20 00:00 IMPRESSION: TRACE LARYNGEAL PENETRATION WITHOUT ASPIRATION. PLEASE SEE SPEECH PATHOLOGIST REPORT FOR OTHER FINDINGS AND RECOMMENDATIONS. Assessment and Plan - Diagnosis (1) Acute ischemic stroke Is this a current diagnosis for this admission?: Yes (2) Acute on chronic respiratory failure with hypoxia and hypercapnia Is this a current diagnosis for this admission?: Yes (3) Altered mental status Qualifiers: Altered mental status type: unspecified Qualified Code(s): R41.82 - Altered mental status, unspecified Is this a current diagnosis for this admission?: Yes (4) COPD with acute bronchitis Is this a current diagnosis for this admission?: Yes (5) Cigarette nicotine dependence Is this a current diagnosis for this admission?: Yes (6) Dehydration Is this a current diagnosis for this admission?: Yes (7) Hypothyroidism associated with surgical procedure Is this a current diagnosis for this admission?: Yes (8) Methadone dependence Is this a current diagnosis for this admission?: Yes (9) Open back wound Qualifiers: Encounter type: initial encounter Laterality: right Qualified Code(s): S21.201A - Unspecified open wound of right back wall of thorax without penetration into thoracic cavity, initial encounter Is this a current diagnosis for this admission?: Yes - Plan Summary Summary: 07/17/2020 Patient will be admitted to [facility] where she will receive routine supportive and symptomatic cares. She will be continued on BiPAP with supplemental oxygen as needed to maintain an adequate oxygen saturation and alleviate her respiratory acidosis. She will be monitored closely with every 4 hour neurochecks and vital signs as well as telemetry monitoring. CBCs, metabolic profiles, ABGs and additional laboratory and/or radiographic evaluations will be obtained as needed. She received Ativan 1 mg IV every 4 hours as needed for agitation or restlessness. A registered dietitian consultation will be obtained. Every 4 hour Accu-Cheks will be obtained with sliding scale insulin for hyperglycemia and a hypoglycemic protocol in place. 07/18/2020 Acute ischemic stroke-the patient has a dense right hemiplegia consistent with acute ischemic stroke. Diagnostic imaging revealed what appears to be a staple or other metal object in the right side of the neck. This would preclude an MRI study. We will obtain carotid ultrasounds and possibly an echocardiogram. I have ordered an aspirin suppository now and await swallowing evaluation before proceeding with oral medications such as statin therapy. Acute on chronic respiratory failure with hypoxia and hypercapnia-markedly elevated PCO2 on admission. This has improved significantly with BiPAP. The patient is likely at her baseline PCO2 level. Possible bronchitis with associated COPD and I will start intravenous doxycycline. I have ordered a sputum specimen but it is unlikely that the patient will be able to produce a good specimen due to overall weakness. Keep oxygen saturations in the 90 to 94% range. Lactic acidemia secondary to hypoxia and hypercapnia Elevated troponin likely secondary to hypoxia Nicotine addiction-nicotine patch Hypothyroidism with history of thyroidectomy-TSH is elevated at 13. Increase levothyroxine to 125 mcg daily. Back wound-likely from shearing. Bacitracin and simple dressing change daily. Severe protein calorie malnutrition-dietitian has been consulted Dehydration-IV fluids and monitor serum chemistries as well as volume status 07/19/2020 Patient still with a dense right hemiplegia. Speech is improved. We will add aspirin, statin and maintain good blood pressure control. The patient is having a modified barium swallow today. Hypercapnia has resolved. We will need to monitor closely and not allow oxygen saturation to go above 94% unless the patient is on room air. Continue levothyroxine Continue wound care for back wound. Appreciate wound care consult We will institute dietitian recommendations when available. 07/20/2020 The patient is upset at the thought of short-term long term. She is worried that her daughter is going to leave her there. She has regained significant function in her right leg. I explained that this is an excellent benchmark of progress. I believe she is most frustrated with her right arm/hand. I explained to her that recovery can take months but it will take hard work. I explained that going to the short-term skilled rehab is the best chance she has of maximizing her recovery. She was tearful but I think understands. We will continue aspirin therapy as well as blood pressure control and statin therapy. The patient was out of the window for TPA once the stroke was identified. No anticoagulation but rather antiplatelet therapy alone. Sputum culture was positive for Haemophilus influenza. Antibiotic therapy has been very effective in resolving this infection. Back wound is stable. Blood pressures are still slightly higher than desired. I will add low-dose KARLA inhibitor. Hypothyroidism-continue levothyroxine Nutrition-I reviewed the dietitians suggestions. We will change the Jevity to 8 ounces every 6 hours and institute 120 mL water flushes every 4 hours. 07/21/2020 The patient reports difficulty breathing however her pulse oximetry is in the high 90s on room air and her lungs are clear. I feel this is more likely anxiety. Stroke-still with dense right arm monoplegia. Legs are much better. Continue to work with PT and OT. Echocardiogram and carotid ultrasound were normal. Pharyngeal dysphagia-continue to work with speech therapy. The patient gets the majority of her nutrition from tube feeds. Speech has suggested that she initiate an oral diet and we will try and build on the oral diet to eventually supplant tube feeds. COPD with bronchitis-sputum culture actually is polymicrobial. In addition to Haemophilus influenza Streptococcus pneumoniae has been isolated as well as other pathogens. Complete antibiotic therapy as ordered. Back wound-continue wound care center suggested dressings Severe protein calorie malnutrition-following the dietitian's recommendations. As oral diet increases the tube feeds can be adjusted. Believe the patient is developing some depression. I will speak more directly to this tomorrow once I am sure that the shortness of breath was not from any other pathology. I will obtain a chest x-ray as well as repeat laboratory studies. The overall goal is for the patient to transition to short-term rehab/skilled facility on Thursday. 07/22/2020 She reports some difficulty breathing again today. Lungs are clear on chest x- ray was normal. I believe this is more anxiety. Dysphagia-her appetite is improved and she is taking food more consistently. I will hold the tube feeds and water flushes. We will track her intake and if we need to supplement her oral intake we will do it through the PEG tube. We will change medications to oral administration at this time. Difficult to maintain IV access and so the doxycycline for her bronchitis will be changed to oral dosing. Stroke-she is stable for transfer to long term facility. I think she will need to consider treatment for depression. Sometimes with improvement in functional status the patient's outlook and hence emotional state improved. COPD-beginning to transition to an outpatient appropriate treatment plan with inhaler and will need a rescue inhaler as well. 07/23/2020 COPD with bronchitis-polymicrobial sputum culture. Completing antibiotic therapy. Complaints of breathing are routed in anxiety as her chest x-ray is clear as is her pulmonary exam. Establish on a regimen for outpatient treatment. Fhkjdl-ascl-ne as above. Aspirin, statin and antihypertensive therapy. Back wound-continue dressings as ordered. Supplements and vitamins/minerals to assist healing. Dysphagia-we are holding the tube feeds and water flushes as the patient's appetite is improving. Explained to the patient that if her caloric intake is adequate we can hold off on the tube feeds. If oral intake of fluids is inadequate we can always give free water through the tube but I encouraged her to try and meet the requirements by mouth. If this occurs and is sustained we can remove the tube. Depression-bupropion therapy initiated. Started at 75 mg twice daily. She will likely benefit from monitoring and dose adjustment as an outpatient. Methadone therapy-continue current dose Awaiting placement at short-term rehab. Unfortunately this could not be accomplished today. 07/24/2020 COPD with bronchitis-polymicrobial sputum culture. Completing antibiotic therapy. Complaints of breathing are routed in anxiety as her chest x-ray is clear as is her pulmonary exam. Establish on a regimen for outpatient treatment. Ljkpis-kymq-il as above. Aspirin, statin and antihypertensive therapy. Back wound-continue dressings as ordered. Supplements and vitamins/minerals to assist healing. Dysphagia-we are holding the tube feeds and water flushes as the patient's appetite is improving. Explained to the patient that if her caloric intake is adequate we can hold off on the tube feeds. If oral intake of fluids is inadequate we can always give free water through the tube but I encouraged her to try and meet the requirements by mouth. If this occurs and is sustained we can remove the tube. Depression-bupropion therapy initiated yesterday. Started at 75 mg twice daily. She will likely benefit from monitoring and dose adjustment as an outpatient. Methadone therapy-continue current dose Awaiting placement at short-term rehab. - Time Anticipated Discharge Disposition: Longterm Facility Anticipated Discharge Timeframe: within 24 hours
[2020-07-24] MEDS: ATORVASTATIN CALCIUM 40 MG TABLET PO SCH (21:41)
[2020-07-25] MEDS: PANTOPRAZOLE SODIUM 40 MG TABLET.DR PO SCH (05:42)
[2020-07-25] MEDS: LEVOTHYROXINE SODIUM 0.05 MG TABLET PO SCH (05:42)
[2020-07-25] MEDS: HEPARIN SOD (PORCINE) 5,000 UNIT/ML 1 ML VIAL SUBCUT SCH (05:43)
[2020-07-25] MEDS: ZINC SULFATE 220 MG CAPSULE PO SCH (09:53)
[2020-07-25] MEDS: THIAMINE HCL 100 MG TABLET PO SCH (09:53)
[2020-07-25] MEDS: ASPIRIN 81 MG TABLET, ENT COATED PO SCH (09:53)
[2020-07-25] MEDS: METHADONE HCL 10 MG TABLET PO SCH (09:53)
[2020-07-25] MEDS: ASCORBIC ACID 500 MG TABLET PO SCH (09:53)
[2020-07-25] MEDS: BUPROPION HCL 75 MG TABLET PO SCH (09:53)
[2020-07-25] MEDS: FLUTICASONE/UMECLIDIN/VILANTER 100-62.5-25 MCG/DOSE IH SCH (09:53)
[2020-07-25] MEDS: DOXYCYCLINE HYCLATE 100 MG TABLET PO SCH (10:15)
[2020-07-25 13:18] VITALS: BP 107/52
--- NOTE | 2020-07-25 14:03 | PDOC DISCHARGE SUMMARY ---
Impression - Admit/DC Date/PCP Admission Date/Primary Care Provider: 07/17/20 21:41 SANDRO MALDONADO, Discharge Date: 07/25/20 - Discharge Diagnosis (1) Acute ischemic stroke Is this a current diagnosis for this admission?: Yes (2) Acute on chronic respiratory failure with hypoxia and hypercapnia Is this a current diagnosis for this admission?: Yes (3) Altered mental status Is this a current diagnosis for this admission?: Yes (4) COPD with acute bronchitis Is this a current diagnosis for this admission?: Yes (5) Cigarette nicotine dependence Is this a current diagnosis for this admission?: Yes (6) Dehydration Is this a current diagnosis for this admission?: Yes (7) Hypothyroidism associated with surgical procedure Is this a current diagnosis for this admission?: Yes (8) Methadone dependence Is this a current diagnosis for this admission?: Yes (9) Open back wound Is this a current diagnosis for this admission?: Yes - Assessment Summary: JULIET GOMEZ is a 55 year old female with opioid dependence on methadone maintenance therapy who presented to the emergency room via EMS on 07/17/2020 after being found down at home. She had been seen well by her daughter a couple hours earlier and was found on her kitchen floor at home unresponsive. A bystander administered 4 mg of Narcan prior to EMS arrival with the patient reportedly regaining responsiveness. In the emergency room the patient was found to have severe respiratory acidosis requiring BiPAP therapy. She was also noted to be hypothermic but this rapidly improved with treatment. Additionally she was found to have an acute kidney injury, a glucose of greater than 500 and altered mental status. On exam, she was noted to have dense right-sided hemiplegia. She was subsequently admitted to the hospital for further evaluation and treatment. Acute ischemic stroke-the patient had a dense right hemiplegia and dysarthria on presentation, consistent with acute ischemic stroke. She was out of the window for TPA. Diagnostic imaging revealed what appeared to be a staple or other metal object in the right side of the neck which precluded an MRI study. She was started on ASA and statin therapy. BP was normal throughout her hospital stay. H er RLE strength and speech both improved dramatically during the hospital stay, but she continues to have severe RUE weakness. She was evaluated by PT, OT, LIGHT INDUSTRIAL SUPERVISOR who recommended discharge to SNF vs [facility]. The patient and her daughter chose [facility] for ongoing therapy needs. Acute respiratory failure with hypoxia and hypercapnia-markedly elevated PCO2 on admission, which improved significantly with BiPAP. COPD with acute bronchitis-She was treated for a possible COPD exacerbation and completed a course of doxycycline while inpatient. MONTEZ due to dehydration-resolved with IVF hydration. Lactic acidosis-secondary to hypoxia and hypercapnia, resolved. Elevated troponin-likely demand ischemia secondary to hypoxia. Nicotine dependence-tobacco cessation counseling and nicotine patches provided. Hypothyroidism s/p thyroidectomy-TSH elevated in the setting of acute stress, but with normal FT4. We continued her home dose of levothyroxine. Back wound-likely from shearing stress (she was found down). Bacitracin and simple dressing change daily. Severe protein calorie malnutrition (BMI 15)-she reports that she had a remote thyroidectomy/throat surgery and has been on TF via a G-tube ever since. She eats a regular oral diet, however, and also gets 2 cans of TF during the day. She passed L[employer] INDUSTRIAL SUPERVISOR evaluation while inpatient and was tolerating an oral diet. We discussed that she likely does not need a G-tube, but she is adamant that she would like to keep her G-tube in place "just in case" she is not able to eat in the future. Depression-bupropion therapy initiated. - Additional Information Resuscitation Status: Full Code Discharge Diet: Regular, Other (Comments) Discharge Activity: Walk Frequently Referrals: SANDRO MALDONADO DO [Primary Care Provider] - 08/06/20 4:00 pm Prescriptions: Bupropion HCl [Bupropion Xl] 150 mg PO DAILY #30 tab.er.24h Atorvastatin Calcium [Lipitor 40 mg Tablet] 40 mg PO QHS #30 tablet Nicotine [Nicoderm 21 mg/24 Hr Transderm Patch] 1 each TD DAILY #30 patch.td24 Home Medications: Omeprazole 20 mg PO BID 09/25/19 Budesonide/Formoterol Fumarate [Symbicort HFA 160-4.5 mcg Inhaler 6 gm] 1 puff IH Q12 07/18/20 Levothyroxine Sodium [Synthroid] 125 mcg PO DAILY 07/18/20 Aspirin [Ecotrin 81 mg EC Tablet] 81 mg PO DAILY tabec 07/25/20 Atorvastatin Calcium [Lipitor 40 mg Tablet] 40 mg PO QHS #30 tablet 07/25/20 Bupropion HCl [Bupropion Xl] 150 mg PO DAILY #30 tab.er.24h 07/25/20 Nicotine [Nicoderm 21 mg/24 Hr Transderm Patch] 1 each TD DAILY #30 patch.td24 07/25/20 History of Present Illiness History of Present Illness: JULIET GOMEZ is a 55 year old female Physical Exam Vital Signs: Temp Pulse Resp BP Pulse Ox 97.9 F 71 11 L 107/52 L 97 07/25/20 13:18 07/25/20 13:18 07/25/20 13:18 07/25/20 13:18 07/25/20 13:18 Intake & Output 07/24/20 07/25/20 07/26/20 06:59 06:59 06:59 Intake Total 1340 1126 Output Total 3250 1400 Balance -1909 - Weight 42.4 kg 42.5 kg Results Laboratory Results: WBC 8.6 10^3/uL (4.0-10.5) 07/24/20 06:02 RBC 4.21 10^6/uL (3.72-5.28) 07/24/20 06:02 Hgb 13.2 g/dL (12.0-15.5) 07/24/20 06:02 Hct 38.6 % (36.0-47.0) 07/24/20 06:02 MCV 92 fl (80-97) 07/24/20 06:02 MCH 31.4 pg (27.0-33.4) 07/24/20 06:02 MCHC 34.2 g/dL (32.0-36.0) 07/24/20 06:02 RDW 13.7 % (11.5-14.0) 07/24/20 06:02 Plt Count 247 10^3/uL (150-450) 07/24/20 06:02 Lymph % (Auto) 12.5 % (13-45) L 07/22/20 05:18 [place] % (Auto) 14.7 % (3-13) H 07/22/20 05:18 Eos % (Auto) 2.9 % (0-6) 07/22/20 05:18 Baso % (Auto) 0.7 % (0-2) 07/22/20 05:18 Reticulocyte # 0.049 10^6/uL (0.028-0.122) 07/24/20 06:02 Absolute Neuts (auto) 5.5 10^3/uL (1.7-8.2) 07/22/20 05:18 Absolute Lymphs (auto) 1.0 10^3/uL (0.5-4.7) 07/22/20 05:18 Absolute Monos (auto) 1.2 10^3/uL (0.1-1.4) 07/22/20 05:18 Absolute Eos (auto) 0.2 10^3/uL (0.0-0.6) 07/22/20 05:18 Absolute Basos (auto) 0.1 10^3/uL (0.0-0.2) 07/22/20 05:18 Seg Neutrophils % 69.2 % (42-78) 07/22/20 05:18 Retic Count (auto) 1.17 % (0.66-2.85) 07/24/20 06:02 Carbonic Acid 1.75 mmol/L (1.05-1.35) H 07/17/20 21:51 HCO3/H2CO3 Ratio 18:1 07/17/20 21:51 ABG pH 7.37 (7.35-7.45) 07/17/20 21:51 ABG pCO2 58.2 mmHg (35-45) H 07/17/20 21:51 ABG pO2 63.5 mmHg (80-100) L 07/17/20 21:51 ABG HCO3 32.8 mmol/L (20-24) H 07/17/20 21:51 ABG Total CO2 34.6 mmol/L (21-25) H 07/17/20 21:51 ABG O2 Saturation 91.2 % (94-98) L 07/17/20 21:51 ABG Base Excess 5.8 mmol/L 07/17/20 21:51 VBG pH 7.01 (7.30-7.42) L* 07/17/20 17:50 VBG pCO2 132.3 mmHg (35-63) H* 07/17/20 17:50 VBG HCO3 32.8 mmol/L (20-32) H 07/17/20 17:50 VBG Base Excess -2.9 mmol/L 07/17/20 17:50 FiO2 28% 07/17/20 21:51 Sodium 137.8 mmol/L (137-145) 07/24/20 06:02 Potassium 5.1 mmol/L (3.6-5.0) H 07/24/20 06:02 Chloride 93 mmol/L (98-107) L 07/24/20 06:02 Carbon Dioxide 38 mmol/L (22-30) H 07/24/20 06:02 Anion Gap 7 (5-19) 07/24/20 06:02 BUN 19 mg/dL (7-20) 07/24/20 06:02 Creatinine 0.71 mg/dL (0.52-1.25) 07/24/20 06:02 Est GFR ( Amer) > 60 (>60) 07/24/20 06:02 Est GFR (MDRD) Non-Af > 60 (>60) 07/24/20 06:02 Glucose 119 mg/dL (75-110) H 07/24/20 06:02 POC Glucose 198 mg/dL (70-110) H 07/25/20 12:54 Hemoglobin A1c % 4.8 % (4.7-6.0) 07/18/20 08:34 Lactic Acid 1.1 mmol/L (0.7-2.1) 07/18/20 15:14 Calcium 9.4 mg/dL (8.4-10.2) 07/24/20 06:02 Phosphorus 9.5 mg/dL (2.5-4.5) H 07/17/20 17:50 Magnesium 2.3 mg/dL (1.6-2.3) 07/24/20 06:02 Iron 40.0 ug/dL (37-170) 07/24/20 06:02 TIBC 342 ug/dL (250-450) 07/24/20 06:02 % Saturation 12 % 07/24/20 06:02 Ferritin 131.00 ng/mL (11.1-264.0) 07/24/20 06:02 Total Bilirubin 0.6 mg/dL (0.2-1.3) 07/18/20 08:34 Direct Bilirubin 0.0 mg/dL (0.0-0.4) 07/18/20 08:34 Neonat Total Bilirubin Not Reportable 07/18/20 08:34 Neonat Direct Bilirubin Not Reportable 07/18/20 08:34 Neonat Indirect Bili Not Reportable 07/18/20 08:34 AST 55 U/L (14-36) H 07/18/20 08:34 ALT 50 U/L (<35) H 07/18/20 08:34 Alkaline Phosphatase 67 U/L (38-126) 07/18/20 08:34 Creatine Kinase 128 U/L (30-135) 07/17/20 17:50 Troponin I 0.069 ng/mL 07/18/20 15:14 NT-Pro-B Natriuret Pep 279 pg/mL (<125) H 07/17/20 17:50 Total Protein 5.6 g/dL (6.3-8.2) L 07/18/20 08:34 Albumin 3.3 g/dL (3.5-5.0) L 07/18/20 08:34 Vitamin B12 850.0 pg/mL (239-931) 07/24/20 06:02 Folate 7.71 ng/mL (>2.76) 07/24/20 06:02 TSH 1.83 uIU/mL (0.47-4.68) 07/18/20 08:34 Free T4 1.01 ng/dL (0.78-2.19) 07/17/20 17:50 Urine Color STRAW 07/17/20 18:00 Urine Appearance CLEAR 07/17/20 18:00 Urine pH 7.0 (5.0-9.0) 07/17/20 18:00 Ur Specific [place] 1.009 07/17/20 18:00 Urine Protein 30 mg/dL (NEGATIVE) H 07/17/20 18:00 Urine Glucose (UA) >=500 mg/dL (NEGATIVE) H 07/17/20 18:00 Urine Ketones NEGATIVE mg/dL (NEGATIVE) 07/17/20 18:00 Urine Blood SMALL (NEGATIVE) H 07/17/20 18:00 Urine Nitrite NEGATIVE (NEGATIVE) 07/17/20 18:00 Urine Bilirubin NEGATIVE (NEGATIVE) 07/17/20 18:00 Urine Urobilinogen NEGATIVE mg/dL (<2.0) 07/17/20 18:00 Ur Leukocyte Esterase NEGATIVE (NEGATIVE) 07/17/20 18:00 Urine WBC (Auto) 1 /HPF 07/17/20 18:00 Urine RBC (Auto) 1 /HPF 10/27/20 18:00 Urine Mucus (Auto) RARE /LPF 07/17/20 18:00 Urine Ascorbic Acid NEGATIVE (NEGATIVE) 07/17/20 18:00 Urine Opiates Screen NEGATIVE 07/17/20 18:00 Urine Methadone Screen UNCONFIRMED POSITIVE 07/17/20 18:00 Ur Barbiturates Screen NEGATIVE 07/17/20 18:00 Ur Phencyclidine Scrn NEGATIVE 07/17/20 18:00 Ur Amphetamines Screen NEGATIVE 07/17/20 18:00 U Benzodiazepines Scrn NEGATIVE 07/17/20 18:00 Urine Cocaine Screen NEGATIVE 07/17/20 18:00 U Marijuana (THC) Screen NEGATIVE 07/17/20 18:00 Serum Alcohol < 10 mg/dL (NONE DETECTED) 07/17/20 17:50 COVID-19 Source See comment 07/23/20 10:30 COVID-19 (VILMA) Not Detected (Not Detect) 07/23/20 10:30 07/17/20 07/18/20 07/18/20 17:50 02:19 08:34 Troponin I 0.050 0.201 0.114 NT-Pro-B Natriuret Pep 279 H 07/18/20 15:14 Troponin I 0.069 NT-Pro-B Natriuret Pep Impressions: Cervical Spine CT 07/17/20 17:51 IMPRESSION: No acute fracture or dislocation of the cervical spine. Chest X-Ray 07/17/20 17:51 IMPRESSION: 1. No significant interval changes since the prior study dated 06/04/2020. No acute findings. Head CT 07/17/20 17:51 IMPRESSION: NO ACUTE INTRACRANIAL IMAGING FINDINGS. EVIDENCE OF ACUTE STROKE: NO. Chest X-Ray 07/17/20 20:18 IMPRESSION: No evidence of acute cardiopulmonary disease. Carotid Doppler Study 07/18/20 09:22 IMPRESSION: NO HEMODYNAMICALLY SIGNIFICANT STENOSIS. Carotid Doppler Study 07/19/20 00:00 IMPRESSION: NO HEMODYNAMICALLY SIGNIFICANT STENOSIS. Modified Barium Swallow 07/19/20 00:00 IMPRESSION: TRACE LARYNGEAL PENETRATION WITHOUT ASPIRATION. PLEASE SEE SPEECH PATHOLOGIST REPORT FOR OTHER FINDINGS AND RECOMMENDATIONS. Stroke Is this a Stroke Patient?: Yes Stroke Pt being discharged on Anti-thrombolytic therapy?: No Reason(s) for not prescribing Anti-thrombolytic therapy:: Contraindicated Stroke Pt being discharged on Anti-coagulation therapy?: No Reason(s) for not prescribing Anti-coagulation therapy:: Not indicated Stroke Pt being discharged on Statins?: Yes Acute Heart Failure Is this a Heart Failure Patient?: No
== END 2020-07-25 14:02 | disposition home health service (06) | DRG 64 ==
LOC: ER 17:42 → EH 21:41 → ICU 07-18 00:45 → 3S 07-18 19:59
PROVIDERS: ADMIT Emergency Medicine; ATTEND Hospitalist
PROC: B24BZZ4 Ultrasonography of Heart with Aorta, Transesophageal (ICD-10-PCS; principal; 2020-07-20)
DX: I63.9 Cerebral infarction, unspecified (principal); J96.22 Acute and chronic respiratory failure with hypercapnia; J96.21 Acute and chronic respiratory failure with hypoxia; E43 Unspecified severe protein-calorie malnutrition; J44.0 Chronic obstructive pulmonary disease with (acute) lower respiratory infection; F11.221 Opioid dependence with intoxication delirium; N17.9 Acute kidney failure, unspecified; G81.91 Hemiplegia, unspecified affecting right dominant side; Z68.1 Body mass index [BMI] 19.9 or less, adult; J20.9 Acute bronchitis, unspecified; F17.210 Nicotine dependence, cigarettes, uncomplicated; E86.0 Dehydration; E89.0 Postprocedural hypothyroidism; Y83.6 Removal of other organ (partial) (total) as the cause of abnormal reaction of the patient, or of later complication, without mention of misadventure at the time of the procedure; R47.1 Dysarthria and anarthria; J45.40 Moderate persistent asthma, uncomplicated; R73.9 Hyperglycemia, unspecified; T38.0X5A Adverse effect of glucocorticoids and synthetic analogues, initial encounter; K21.9 Gastro-esophageal reflux disease without esophagitis; T68.XXXA Hypothermia, initial encounter; S21.201A Unspecified open wound of right back wall of thorax without penetration into thoracic cavity, initial encounter; B96.3 Hemophilus influenzae [H. influenzae] as the cause of diseases classified elsewhere; B95.3 Streptococcus pneumoniae as the cause of diseases classified elsewhere; Z60.2 Problems related to living alone; F41.9 Anxiety disorder, unspecified; E11.9 Type 2 diabetes mellitus without complications; Z79.899 Other long term (current) drug therapy; Z79.890 Hormone replacement therapy; Z79.82 Long term (current) use of aspirin; Z85.850 Personal history of malignant neoplasm of thyroid; Z89.022 Acquired absence of left finger(s); Z80.9 Family history of malignant neoplasm, unspecified
CPT/HCPCS: 36415; 36600; 51702; 70450; 71045; 72125; 74230; 80048; 80053; 80307; 81001; 82550; 82607; 82728; 82746; 82803; 82962; 83036; 83540; 83550; 83605; 83735; 83880; 84100; 84439; 84443; 84484; 85025; 85027; 85045; 87040; 87070; 87077; 87186; 87205; 87635; 93005; 93010; 93306; 93308; 93880; 94640; 94660; 96360; 96361; 99285; C9113; C9803; J1644; J1815; J3490; J7060; J7120; J7121; J7614